=== PATIENT | female | born 1950 | race Caucasian/White ===

== ENCOUNTER 2022-08-12 13:18 | Emergency (ER) | payer MEDICARE, MEDICAID, SELFPAY ==
--- NOTE | ~2022-08-12 | XR_ITS ---
EXAMINATION: Right shoulder, right knee and right tibia and fibula. CLINICAL INDICATION: Fell out of Wheel Chair. COMPARISON: Right knee 08/13/2018 TECHNIQUE: Right shoulder 4 views. Right knee 4 views. Right tibia and fibula. 4 views. FINDINGS: Right shoulder: Mild degenerative arthritic changes right glenohumeral joint and AC joint. No visible acute fracture, dislocation or soft tissue abnormality. Right knee: There is mild reduction in tricompartment joint space. No bony erosive changes seen. No suprapatellar joint effusion or loose bodies. Right tibia and fibula: There is no visible acute fracture or bony abnormality. There is mild soft tissue swelling along the ankle joint. The ankle mortise is unremarkable. XR/XR tibia fibula RT 2V IMPRESSION: Mild degenerative changes right shoulder and right knee. Unremarkable right tibia and fibula except for mild bimalleolar soft tissue swelling.
--- NOTE | ~2022-08-12 | XR_ITS ---
EXAMINATION: Right shoulder, right knee and right tibia and fibula. CLINICAL INDICATION: Fell out of Wheel Chair. COMPARISON: Right knee 08/13/2018 TECHNIQUE: Right shoulder 4 views. Right knee 4 views. Right tibia and fibula. 4 views. FINDINGS: Right shoulder: Mild degenerative arthritic changes right glenohumeral joint and AC joint. No visible acute fracture, dislocation or soft tissue abnormality. Right knee: There is mild reduction in tricompartment joint space. No bony erosive changes seen. No suprapatellar joint effusion or loose bodies. Right tibia and fibula: There is no visible acute fracture or bony abnormality. There is mild soft tissue swelling along the ankle joint. The ankle mortise is unremarkable. XR/XR knee RT 4V IMPRESSION: Mild degenerative changes right shoulder and right knee. Unremarkable right tibia and fibula except for mild bimalleolar soft tissue swelling.
--- NOTE | ~2022-08-12 | XR_ITS ---
EXAMINATION: Right shoulder, right knee and right tibia and fibula. CLINICAL INDICATION: Fell out of Wheel Chair. COMPARISON: Right knee 08/13/2018 TECHNIQUE: Right shoulder 4 views. Right knee 4 views. Right tibia and fibula. 4 views. FINDINGS: Right shoulder: Mild degenerative arthritic changes right glenohumeral joint and AC joint. No visible acute fracture, dislocation or soft tissue abnormality. Right knee: There is mild reduction in tricompartment joint space. No bony erosive changes seen. No suprapatellar joint effusion or loose bodies. Right tibia and fibula: There is no visible acute fracture or bony abnormality. There is mild soft tissue swelling along the ankle joint. The ankle mortise is unremarkable. XR/XR shoulder RT min 2V IMPRESSION: Mild degenerative changes right shoulder and right knee. Unremarkable right tibia and fibula except for mild bimalleolar soft tissue swelling.
--- NOTE | 2022-08-12 13:20 | ED_ITS ---
HPI - Fall General Chief Complaint: Fall <DEMIAN Arora Last Filed: 08/12/22 13:28> Stated Complaint: R side pain/ fall <DEMIAN Arora - Last Filed: 08/12/22 13:28> Time Seen by Provider: 08/12/22 13:46 <DEMIAN Arora - Last Filed: 08/12/22 13:28> Source: patient and other (caregiver) <DEMIAN Llamas Last Filed: 08/12/22 15:17> Mode of arrival: wheelchair <DEMIAN Llamas Last Filed: 08/12/22 15:17> Limitations: no limitations <DEMIAN Llamas Last Filed: 08/12/22 15:17> History of Present Illness HPI Narrative: Patient is a 71 year old assigned female at with a history of poor ambulation with wheelchair use presenting to the emergency department today with right arm and right leg pain. Patient states that she bent over to put her sock on and fell out of her chair 3 days ago. Patient denies hitting her head with t he incident. Patient denies any loss of consciousness with the incident. Patient denies any dizziness, lightheadedness, abdominal pain, nausea, vomiting, fever, chills, blurry vision, double vision, loss of vision, chest pain, difficulty breathing, shortness of breath, back pain, night sweats, pain with urination, increased urinary frequency, increased urinary urgency, blood in her urine or stool, syncope or a near syncopal episode, bowel incontinence, bladder incontinence, bowel retention, bladder retention, or any other complaints at this time. <DEMIAN Llamas Last Filed: 08/12/22 15:17> Onset (ago): day(s) (3) <DEMIAN Llamas - Last Filed: 08/12/22 15:17> Fall from: wheelchair <DEMIAN Llamas Last Filed: 08/12/22 15:17> Fall witnessed: yes, by living facility staff (caregiver) <DEMIAN Llamas Last Filed: 08/12/22 15:17> Place fall occurred: home <DEMIAN Llamas Last Filed: 08/12/22 15:17> Loss of consciousness: none <DEMIAN Llamas Last Filed: 08/12/22 15:17> Prolonged down time: no <DEMIAN Llamas - Last Filed: 08/12/22 15:17> Symptoms prior to fall: none <DEMIAN Llamas - Last Filed: 08/12/22 15:17> Context: tripped/slipped <DEMIAN Llamas - Last Filed: 08/12/22 15:17> Related Data Allergies/Adverse Reactions: Allergies Allergy/AdvReac Type Severity Reaction Status Date / Time levonorgestrel-ethinyl Allergy Mild RUNNY NOSE Unverified 12/25/19 14:48 estradiol [From Seasonale] olanzapine [From ZYPREXA] Allergy Mild UNKNOWN Unverified 12/25/19 14:48 penicillin V Allergy Unknown Verified 07/19/15 00:00 Penicillins Allergy Unknown UNKNOWN Unverified 12/25/19 14:48 From Novocain Allergy Unknown UNKNOWN Uncoded 12/25/19 14:48 <DEMIAN Arora - Last Filed: 08/12/22 13:28> Review of Systems Constitutional: Constitutional: Reports no additional constitutional complaints, Denies chills, Denies fever(s) and Denies night sweats <DEMIAN Llamas - Last Filed: 08/12/22 15:17> Eyes: Eyes: Reports no additional eye complaints, Denies blurry vision, Denies change in vision, Denies diplopia, Denies eye discharge, Denies loss of vision and Denies eye pain <DEMIAN Llamas - Last Filed: 08/12/22 15:17> ENT: Denies dizziness <DEMIAN Llamas - Last Filed: 08/12/22 15:17> Cardiovascular: Cardiovascular: Reports no additional cardiovascular complaints, Denies chest pain, Denies lightheadedness, Denies Loss of Consciousness and Denies dyspnea <DEMIAN Llamas - Last Filed: 08/12/22 15:17> Respiratory: Respiratory: Reports no additional respiratory complaints and Denies dyspnea <DEMIAN Llamas - Last Filed: 08/12/22 15:17> Gastrointestinal: Gastrointestinal: Reports no additional gastrointestinal complaints, Denies abdominal pain, Denies melena, Denies hematochezia, Denies change in bowel habits and Denies change in stool character <DEMIAN Llamas - Last Filed: 08/12/22 15:17> Genitourinary: Genitourinary: Denies hematuria, Denies urinary frequency, Denies dysuria, Denies urinary incontinence, Denies urinary hesitancy and Denies urinary urgency <DEMIAN Llamas - Last Filed: 08/12/22 15:17> Musculoskeletal: Musculoskeletal: Reports no additional musculoskeletal complaints, Denies numbness and Denies tingling <DEMIAN Llamas - Last Filed: 08/12/22 15:17> Comments: right arm pain and right leg pain <DEMIAN Llamas - Last Filed: 08/12/22 15:17> Neurologic: Denies dizziness, Denies loss of vision, Denies numbness and Denies tingling <DEMIAN Llamas - Last Filed: 08/12/22 15:17> Psychiatric: Psychiatric: Reports no additional psychiatric complaints <DEMIAN Llamas - Last Filed: 08/12/22 15:17> Endocrine: Endocrine: Reports no additional endocrine complaints <DEMIAN Llamas - Last Filed: 08/12/22 15:17> Hematologic/Lymphatic: Hematologic/Lymphatic: Reports no additional hematologic/lymphatic complaints <DEMIAN Llamas - Last Filed: 08/12/22 15:17> Allergic/Immunologic: Allergic/Immunologic: Reports no additional allergic/immunologic complaints <DEMIAN Llamas - Last Filed: 08/12/22 15:17> PMFSH Past Medical History Attestation statement: The following information was validated with the patient. (all information validated with the patient's caregiver) <DEMIAN Llamas - Last Filed: 08/12/22 15:17> Source: old records reviewed, nursing notes reviewed and other (patient's caregiver) <DEMIAN Llamas - Last Filed: 08/12/22 15:17> Social History Social History: Social History Advance Directives: Yes Advance Directives on File: No <DEMIAN Arora - Last Filed: 08/12/22 13:28> Physical Exam Vital Signs: Vital Signs: Last Vital Signs Temp 97 F 08/12/22 13:24 Pulse 57 08/12/22 13:24 Resp 16 08/12/22 13:24 BP 138/70 08/12/22 13:24 Pulse Ox 97 08/12/22 13:24 O2 Del Method Room Air 08/12/22 13:24 BMI result Body Mass Index 25.7 <DEMIAN Arora - Last Filed: 08/12/22 13:28> Vital Signs: Last Vital Signs Temp 97 F 08/12/22 13:24 Pulse 57 08/12/22 13:24 Resp 16 08/12/22 13:24 BP 138/70 08/12/22 13:24 Pulse Ox 97 08/12/22 13:24 O2 Del Method Room Air 08/12/22 13:24 BMI result Body Mass Index 25.7 <DEMIAN Llamas - Last Filed: 08/12/22 15:17> Const: General: cooperative, no acute distress, alert and awake <DEMIAN Llamas - Last Filed: 08/12/22 15:17> Nutritional Appearance: well nourished <DEMIAN Llamas - Last Filed: 08/12/22 15:17> Orientation/consciousness: patient oriented x3 <DEMIAN Llamas - Last Filed: 08/12/22 15:17> Limitations: no limitations <DEMIAN Llamas - Last Filed: 08/12/22 15:17> HEENT: Head: Yes normal to inspection and Yes atraumatic <DEMIAN Llamas - Last Filed: 08/12/22 15:17> Ears: hearing grossly normal bilaterally and external ears normal <DEMIAN Llamas - Last Filed: 08/12/22 15:17> General nose exam: Normal external nose present, no nasal discharge noted and no epistaxis <DEMIAN Llamas - Last Filed: 08/12/22 15:17> Face and sinus: Yes normal facial exam, No abrasion and No laceration <DEMIAN Llamas - Last Filed: 08/12/22 15:17> Mouth: Normal oral and palatal mucosa present, no drooling and no muffled voice <DEMIAN Llamas - Last Filed: 08/12/22 15:17> Eyes: General: appearance normal, both eyes and all related structures <Nataliia Jackson PA - Last Filed: 08/12/22 15:17> Periorbital: periorbital findings normal <Nataliia Jackson PA - Last Filed: 08/12/22 15:17> Eyelids: Yes eyelids normal <Nataliia Jackson PA - Last Filed: 08/12/22 15:17> Conjunctivae: conjunctivae normal <Nataliia Jackson PA - Last Filed: 08/12/22 15:17> Pupils: Equal, round and reactive pupils present <Nataliia Jackson PA - Last Filed: 08/12/22 15:17> EOM: EOMs intact bilaterally <Nataliia Jackson PA - Last Filed: 08/12/22 15:17> Neck: Neck: Yes normal visual inspection, Yes full ROM and Yes no lymph adenopathy <Nataliia Jackson PA - Last Filed: 08/12/22 15:17> Chest: Chest palpation & inspection: normal inspection of the chest <Natailia Jackson PA - Last Filed: 08/12/22 15:17> Resp: Effort & Inspection: normal respiratory effort and able to speak in complete sentences <Nataliia Jackson PA - Last Filed: 08/12/22 15:17> GI: Inspection: Yes normal to inspection <Nataliia Jackson PA - Last Filed: 08/12/22 15:17> Neuro: General: patient oriented x3 and moves all extremities <Nataliia Jackson PA - Last Filed: 08/12/22 15:17> Cranial nerves: Yes Equal, round and reactive pupils present <Nataliia Jackson PA - Last Filed: 08/12/22 15:17> Cognition (Neuro): normal cognition <Nataliia Jackson PA - Last Filed: 08/12/22 15:17> Motor exam (neuro): 5/5 motor strength present throughout <Nataliia Jackson PA - Last Filed: 08/12/22 15:17> Sensory Exam: Normal double simultaneous stimulation for sensation <Nataliia Jackson PA - Last Filed: 08/12/22 15:17> Coordination: [id number] test normal <Nataliia Kruseluzmaria PA - Last Filed: 08/12/22 15:17> Extrem: General: Yes normal to inspection, Yes full ROM and Yes capillary refill normal <DEMIAN Llamas - Last Filed: 08/12/22 15:17> Psych: Appearance: grossly normal <DEMIAN Llamas - Last Filed: 08/12/22 15:17> Mental Status: mental status grossly normal <DEMIAN Llamas - Last Filed: 08/12/22 15:17> Affect: normal affect <DEMIAN Llamas - Last Filed: 08/12/22 15:17> Attitude: cooperative <DEMIAN Llamas - Last Filed: 08/12/22 15:17> Thought process: Normal thought process present <DEMIAN Llamas - Last Filed: 08/12/22 15:17> Thought content: Normal thought content present <DEMIAN Llamas - Last Filed: 08/12/22 15:17> Insight: Good insight present (Psych) <DEMIAN Llamas - Last Filed: 08/12/22 15:17> Course Course Course Narrative: RME: 71-year-old female with past medical history epilepsy, GERD, developmental delay, dysphagia, wheelchair bound, presenting to the ED complai eugenia of right side pain s/p fall out of wheelchair on . Denies head trauma or LOC. denies taking AC R mid tib & shoulder with mild ttp XRs ordered Full HPI, ROS and PE to be performed by primary ED provider. <DEMIAN Arora - Last Filed: 08/12/22 13:28> Medical Decision Making Medical Decision Making MDM Narrative: Patient is a 71 year old assigned female at with a history of poor ambulation requiring wheelchair use presenting to the emergency department today with right leg and right arm pain. Patient's physical exam was unremarkable. Patient's right tib/fib, shoulder, and knee x-rays showed no acute process. I explained my physical exam findings as well as all test results to the patient and the patient's caregiver. I answered all questions asked by the patient and the patient's caregiver. Patient received IM Toradol which she stated helped her pain significantly. I stressed the importance of the patient taking her medication as prescribed. I stressed the importance of the patient following up with her primary care provider. I stressed the importance of the patient returning to the emergency department immediately if her symptoms were to worsen or if she were to develop any dizziness, shortness of breath, difficulty master thing, chest pain, blurry vision, loss of vision, nausea, vomiting, abdominal pain, fever, chills, back pain, or any other complaints. Patient and the patient's caregiver verbalized agreement and understanding with this treatment plan and discharge. <DEMIAN Llamas Filed: 08/12/22 15:17> Differential Diagnosis Differential Diagnoses: The differential diagnosis associated with the presentation includes <DEMIAN Llamas Filed: 08/12/22 15:17> fall, right sided pain, right arm pain, right leg pain <DEMIAN Llamas Last Filed: 08/12/22 15:17> Independent Interpretation I performed an independent interpretation of an: Plain X-Ray <DEMIAN Llamas Filed: 08/12/22 15:17> Interpretation: My interpretation is in agreement with the radiologist's impression of these imaging studies. EXAMINATION: Right shoulder, right knee and right tibia and fibula. CLINICAL INDICATION: Fell out of Wheel Chair. COMPARISON: Right knee 08/13/2018 TECHNIQUE: Right shoulder 4 views. Right knee 4 views. Right tibia and fibula. 4 views. FINDINGS: Right shoulder: Mild degenerative arthritic changes right glenohumeral joint and AC joint. No visible acute fracture, dislocation or soft tissue abnormality. Right knee: There is mild reduction in tricompartment joint space. No bony erosive changes seen. No suprapatellar joint effusion or loose bodies. Right tibia and fibula: There is no visible acute fracture or bony abnormality. There is mild soft tissue swelling along the ankle joint. The ankle mortise is unremarkable. XR/XR tibia fibula RT 2V IMPRESSION: Mild degenerative changes right shoulder and right knee. ? Unremarkable right tibia and fibula except for mild bimalleolar soft tissue swelling. Dictated By: Francisco Rosenebrg MD Signed By: Electronically signed by Francisco Rosenberg MD 08/12/22 1444 <DEMIAN Llamas - Last Filed: 08/12/22 15:17> Independent Historian Clinical information obtained from an independent historian. History obtained from or confirmed by: Other (patient's caregiver) <DEMIAN Llamas - Last Filed: 08/12/22 15:17> Discharge Plan Discharge Clinical Impression: Fall <DEMIAN Arora Last Filed: 08/12/22 13:28> Patient Disposition: Home, Self-Care <DEMIAN Arora - Last Filed: 08/12/22 13:28> Instructions: Fall Prevention for Older Adults (ED), Fall Prevention (ED) <DEMIAN Arora - Last Filed: 08/12/22 13:28> Additional Instructions: Follow up with your primary care provider. Return to the emergency department immediately if your symptoms worsen or if you develop any dizziness, shortness of breath, difficulty breathing, chest pain, blurry vision, loss of vision, nausea, vomiting, abdominal pain, fever, chills, back pain, or any other complaints. <DEMIAN Arora - Last Filed: 08/12/22 13:28> Referrals: [facility] [Provider Group] (Call to establish and follow up with a primary care provider. If you already have a primary care provider, please follow up with them.) [facility] [Provider Group] (Call to establish and follow up with a primary care provider. If you already have a primary care provider, please follow up with them.) [facility] [Provider Group] (Call to establish and follow up with a primary care provider. If you already have a primary care provider, please follow up with them.) <DEMIAN Arora Last Filed: 08/12/22 13:28> Print Language: [place] African <DEMIAN Arora Last Filed: 08/12/22 13:28>
[2022-08-12 13:24] VITALS: BP 138/70; PULSE 57; RESP 16; TEMP 36.1; O2SAT 97; BMI 25.7
[2022-08-12] MEDS: Ketorolac Tromethamine 15 MG/ML VIAL IM (15:12)
== END 2022-08-12 15:47 | disposition home or self-care (01) ==
PROVIDERS: Emergency Provider Emergency Medicine
DX: M79.601 Pain in right arm (principal); M79.604 Pain in right leg; Z91.81 History of falling
CPT/HCPCS: 73030; 73564; 73590; 96372; 99283; 99284; J1885

== ENCOUNTER 2022-11-18 22:23 | Emergency (ER) | payer MEDICARE, MEDICAID, SELFPAY ==
[2022-11-18 22:33] VITALS: BP 150/90; BP 187/87; PULSE 82; PULSE 87; RESP 18; TEMP 36.1; O2SAT 95; O2SAT 97; BMI 27.5
--- NOTE | 2022-11-18 23:52 | ECG_ITS ---
Test Reason : NAUSEA Blood Pressure : / mmHG Vent. Rate : 079 BPM Atrial Rate : 079 BPM P-R Int : 122 ms QRS Dur : 072 ms QT Int : 386 ms P-R-T Axes : 012 -30 025 degrees QTc Int : 442 ms Normal sinus rhythm Left axis deviation Abnormal ECG When compared with ECG of 09-OCT-2011 07:45, No significant change was found Referred By: Nataliia Jackson Electronically Signed By:Isidro Phillip
[2022-11-19 02:32] VITALS: BP 158/77; PULSE 78; RESP 18; TEMP 37.2; O2SAT 94
[2022-11-19 02:33] LABS: MANUAL DIFF FLAG NO
[2022-11-19 02:34] LABS: Basophils Percent Auto 0.3 % (0-2); Eosinophils Absolute Auto 0.1 X10*3/uL (0.0-0.4); Eosinophils Percent Auto 0.8 % (0-4); Hematocrit 40.4 % (37.0-47.0); Hemoglobin 13.2 g/dl (12.0-16.0); Imm Gran Abs Auto 0.01 X10*3/uL (0.00-0.03); Imm Gran Pct Auto 0.2 % (0.0-0.4); Lymphocytes Absolute Auto 1.6 X10*3/uL (1.2-4.9); Lymphocytes Percent Auto 26.1 % (20-40); Mean Corpuscular HGB Conc 32.7 g/dl (31.0-35.0); Mean Corpuscular Hemoglobin 30.5 pg (27.0-33.0); Mean Corpuscular Volume 93.3 fL (80.0-98.0); Monocytes Absolute Auto 0.6 X10*3/uL (0.1-1.2); Monocytes Percent Auto 10.5 % (2-11); Neutrophils Absolute Auto 3.8 x10*3/uL (2.0-8.3); Neutrophils Percent Auto 62.1 % (45-73); Platelet Count 154 X10*3/uL (160-400); Red Blood Count 4.33 X10*6/uL (4.20-5.50); Red Cell Distribution Width 13.1 % (11.0-16.0); White Blood Count 6.1 X10*3/uL (4.8-10.8)
--- NOTE | 2022-11-19 02:40 | ED.NAVMDI ---
HPI - Nausea/Vomiting/Diarrhea General Chief complaint: Nausea/Vomiting/Diarrhea Stated complaint: NAUSEA VOMITING Time Seen by Provider: 11/19/22 00:03 Source: patient and other (Facility staff) Mode of arrival: EMS Limitations: no limitations History of Present Illness HPI Narrative: Patient comes to the emergency room complaining of generalized weakness and vomiting for the last 2 days. According to the staff, patient is unable to keep anything down, vomits her medication. Patient denies any abdominal pain, no fever no flank pain no UTI symptoms, no abdominal pain Related Data Previous Rx's Medication Instructions Recorded nitrofurantoin 100 mg PO Q12H 7 days #14 caps 11/19/22 monohydrate/macrocrystals 100 mg capsule (Macrobid) ondansetron HCl 4 mg tablet 4 mg PO Q6H PRN nausea and 11/19/22 vomiting #7 tabs Allergies Allergy/AdvReac Type Severity Reaction Status Date / Time levonorgestrel-ethinyl Allergy Mild RUNNY NOSE Unverified 12/25/19 14:48 estradiol [From Seasonale] olanzapine [From ZYPREXA] Allergy Mild UNKNOWN Unverified 12/25/19 14:48 penicillin V Allergy Unknown Verified 07/19/15 00:00 Penicillins Allergy Unknown UNKNOWN Unverified 12/25/19 14:48 From Novocain Allergy Unknown UNKNOWN Uncoded 12/25/19 14:48 Review of Systems Review of Systems: Constitutional : No Weight loss, No Fever, No Chills, No Night Sweats, No Fatigue, No Malaise ENT/Mouth : No Hearing loss, No Ear Pain, No Nasal Congestion, No Sinus Pain, No Hoarseness, No sore throat, No Rhinorrhea, No Swallowing Difficulty Eyes: No Eye Pain, No Swelling, No Redness, No Foreign Body, No Discharge, No Vision Changes Cardiovascular : No Chest Pain, No SOB, No Dyspnea on Exertion, No Orthopnea, No Edema, No Palpitations Respiratory : No Cough, No Sputum, No Wheezing, No Smoke Exposure, No Dyspnea Gastrointestinal : Complaining of nausea vomiting No Diarrhea, No Constipation, No abdominal Pain, No Hematochezia, No Melena Genitourinary : no irregular bleeding, No Dysuria, No Urinary Frequency, No Hematuria, No Urinary Incontinence, No Urgency, No Flank Pain, No Urinary Flow Changes, No Hesitancy Musculoskeletal : No joint pain, No Myalgias, No Joint Swelling Skin : No Skin Lesions, No rash Neuro : No Weakness, No Numbness, No Paresthesias, No Loss of Consciousness, No Dizziness, No Headache Psych : No Anxiety/Panic, No Depression, No SI/HI/AH/VH, No Social Issues, Heme/Lymph: No Bruising, No Bleeding,No Lymphadenopathy Endocrine : No Polyuria, No Polydipsia, No Temperature Intolerance [facility] Past Medical History Medical History (Updated 11/19/22 @ 06:12 by Anay Gutierres MD) Cognitive developmental delay Social History Social History Smoked in Last 30 Days: No Advance Directives: No Advance Directives Information Provided: No Physical Exam Vital Signs: Vital Signs: Last Vital Signs Temp 98.4 F 11/19/22 04:50 Pulse 81 11/19/22 04:50 Resp 18 11/19/22 04:50 BP 149/74 H 11/19/22 04:50 Pulse Ox 94 11/19/22 04:50 O2 Del Method Room Air 11/19/22 04:50 BMI result Body Mass Index 27.5 Const: Other: Appearance: Alert. Oriented X3. No acute distress. Eyes: Pupils equal, round and reactive to light. ENT: Pharynx normal. Neck: Normal inspection. Neck supple. No lymph nodes noted. No crepitus CVS: Normal heart rate and rhythm. Pulses normal. Normal S1 and S2 Respiratory: No respiratory distress. Breath sounds normal. No Wheezing. No rales Abdomen: Soft and nontender. No rigidity. No distention. Skin: Skin warm and dry. Normal skin color. Normal skin turgor. Extremities: No lower extremity edema. No Lacerations. No Rash Neuro: Oriented X 3. No motor deficit. No sensory deficit. Moving all extremities. No slurred speech. CN 2 through 12 grossly intact Psych: calm, cooperative, normal affect Medications Administered Discontinued Medications Generic Name Dose Route Start Last Admin Trade Name Freq PRN Reason Stop Dose Admin Sodium Chloride 1,000 mls @ 999 mls/hr 11/18/22 23:45 11/19/22 05:46 Ns IV 11/19/22 00:45 Not Given .Q1H1M RAFAELA Sodium Chloride 1,000 mls @ 999 mls/hr 11/19/22 02:41 11/19/22 05:46 Ns IVCONT 11/19/22 03:41 Not Given .Q1H1M ONE Nitrofurantoin Macrocrystals 100 mg 11/19/22 05:22 11/19/22 06:05 Nitrofurantoin Monohyd/M-Cryst 100 Mg Capsule PO 11/19/22 05:23 100 mg ONCE ONE Administration Ondansetron HCl 4 mg 11/18/22 23:52 11/19/22 05:46 Ondansetron Hcl 4 Mg/2 Ml Vial IVPUSH 11/18/22 23:53 Not Given ONCE ONE Ondansetron HCl 4 mg 11/19/22 02:41 11/19/22 05:46 Ondansetron Hcl 4 Mg/2 Ml Vial IVPUSH 11/19/22 02:42 Not Given ONCE ONE Medical Decision Making Medical Decision Making MDM Narrative: Interpretation of labs: White blood cell count within normal limits, patient's troponin is 24, elevated. Patient has no chest pain -. Normal sinus rhythm, heart rate 79, no ST segment depression or elevation, no T-wave inversion, QTC 442 -urinalysis has trace leukocytes, given the patient's symptoms would go ahead and treat with Macrobid Trop #2 seem as troponin 1, patient is asymptomatic. This is likely patient's baseline Differential Diagnosis Differential Diagnoses: The differential diagnosis associated with the presentation includes (UTI, gastroenteritis, viral illness) Lab Data [facility] Lab Attestation statement: I reviewed the patient's lab results. 11/19/22 02:29 11/19/22 02:29 Labs: Lab Results 11/19/22 11/19/22 11/19/22 Range/Units 02:29 02:29 02:29 WBC 6.1 (4.8-10.8) X10*3/uL RBC 4.33 (4.20-5.50) X10*6/uL Hgb 13.2 (12.0-16.0) g/dl Hct 40.4 (37.0-47.0) % MCV 93.3 (80.0-98.0) fL MCH 30.5 (27.0-33.0) pg MCHC 32.7 (31.0-35.0) g/dl RDW 13.1 (11.0-16.0) % Plt Count 154 L (160-400) X10*3/uL MPV 10.0 (9.4-12.3) fL Immature Gran % (Auto) 0.2 (0.0-0.4) % Neut % (Auto) 62.1 (45-73) % Lymph % (Auto) 26.1 (20-40) % [place] % (Auto) 10.5 (2-11) % Eos % (Auto) 0.8 (0-4) % Baso % (Auto) 0.3 (0-2) % Lymph # (Auto) 1.6 (1.2-4.9) X10*3/uL [place] # (Auto) 0.6 (0.1-1.2) X10*3/uL Eos # (Auto) 0.1 (0.0-0.4) X10*3/uL Baso # (Auto) 0.0 (0.0-0.2) X10*3/uL Abs Immat Gran (auto) 0.01 (0.00-0.03) X10*3/uL Absolute Neuts (auto) 3.8 (2.0-8.3) x10*3/uL Absolute Nucleated RBC 0.000 (0.0-0.012) X10*3/uL Nucleated RBC % (auto) 0.0 (0.0-0.2) /100WBC Sodium 146 H (135-145) mmol/L Potassium 3.8 (3.3-5.1) mmol/L Chloride 110 H (96-108) mmol/L Carbon Dioxide 25 (22-29) mmol/L Anion Gap 15 (12-20) BUN 20 H (9-16) mg/dL Creatinine 0.74 (0.5-1.4) mg/dL Estim Creat Clear Calc 69.5 Estimated GFR > 60 Random Glucose 97 (60-115) mg/dL Calcium 9.1 (8.4-10.2) mg/dL Magnesium 2.1 (1.6-2.6) mg/dL Total Bilirubin 0.5 (0.0-1.0) mg/dL AST 30 (5-31) U/L ALT 39 H (0-31) U/L Alkaline Phosphatase 85 (39-117) U/L Total Creatine Kinase 79 (26-140) U/L Troponin I High Sens 24.5 H (<3.5-17.0) ng/L Total Protein 7.0 (6.5-8.0) g/dL Albumin 4.0 (3.5-5.0) g/dL Lipase 35 (8-78) U/L Urine Color Urine Appearance Urine pH (5.0-9.0) Ur Specific [place] (1.005-1.025) Urine Protein (Neg-Trace) mg/dL Urine Glucose (UA) (Negative) mg/dL Urine Ketones (Negative) mg/dL Urine Blood (Negative) Urine Nitrite (Negative) Ur Leukocyte Esterase (Negative) Urine RBC (0-2) /HPF Urine WBC (0-5) /HPF Ur Squamous Epith Cells (0-2) /HPF Urine Bacteria (None Seen) Hyaline Casts (0-2) /LPF COVID-19 ([facility]) (Negative) COVID-19 Clin Com 11/19/22 11/19/22 11/19/22 Range/Units 02:29 05:01 05:29 WBC (4.8-10.8) X10*3/uL RBC (4.20-5.50) X10*6/uL Hgb (12.0-16.0) g/dl Hct (37.0-47.0) % MCV (80.0-98.0) fL MCH (27.0-33.0) pg MCHC (31.0-35.0) g/dl RDW (11.0-16.0) % Plt Count (160-400) X10*3/uL MPV (9.4-12.3) fL Immature Gran % (Auto) (0.0-0.4) % Neut % (Auto) (45-73) % Lymph % (Auto) (20-40) % [place] % (Auto) (2-11) % Eos % (Auto) (0-4) % Baso % (Auto) (0-2) % Lymph # (Auto) (1.2-4.9) X10*3/uL [place] # (Auto) (0.1-1.2) X10*3/uL Eos # (Auto) (0.0-0.4) X10*3/uL Baso # (Auto) (0.0-0.2) X10*3/uL Abs Immat Gran (auto) (0.00-0.03) X10*3/uL Absolute Neuts (auto) (2.0-8.3) x10*3/uL Absolute Nucleated RBC (0.0-0.012) X10*3/uL Nucleated RBC % (auto) (0.0-0.2) /100WBC Sodium (135-145) mmol/L Potassium (3.3-5.1) mmol/L Chloride (96-108) mmol/L Carbon Dioxide (22-29) mmol/L Anion Gap (12-20) BUN (9-16) mg/dL Creatinine (0.5-1.4) mg/dL Estim Creat Clear Calc Estimated GFR Random Glucose (60-115) mg/dL Calcium (8.4-10.2) mg/dL Magnesium (1.6-2.6) mg/dL Total Bilirubin (0.0-1.0) mg/dL AST (5-31) U/L ALT (0-31) U/L Alkaline Phosphatase (39-117) U/L Total Creatine Kinase (26-140) U/L Troponin I High Sens 23.9 H (<3.5-17.0) ng/L Total Protein (6.5-8.0) g/dL Albumin (3.5-5.0) g/dL Lipase (8-78) U/L Urine Color Dark Yellow Urine Appearance Clear Urine pH 6.0 (5.0-9.0) Ur Specific [place] 1.025 (1.005-1.025) Urine Protein 300 (3+) H (Neg-Trace) mg/dL Urine Glucose (UA) Negative (Negative) mg/dL Urine Ketones 80 (Negative) mg/dL Urine Blood Negative (Negative) Urine Nitrite Negative (Negative) Ur Leukocyte Esterase Trace H (Negative) Urine RBC 3-5 H (0-2) /HPF Urine WBC 0-5 (0-5) /HPF Ur Squamous Epith Cells 3-5 (0-2) /HPF Urine Bacteria None Seen (None Seen) Hyaline Casts 0-2 (0-2) /LPF COVID-19 ([facility]) Negative (Negative) COVID-19 Clin Com See Note Discharge Plan Discharge Clinical Impression: Nausea & vomiting, Acute UTI Patient Disposition: Home, Self-Care Instructions: Acute Nausea and Vomiting (ED), Urinary Tract Infection in Older Adults (ED) Additional Instructions: Please follow-up with your primary care physician tomorrow. If you have any worsening or new symptoms, please return to the emergency room or call 911 Prescriptions: New nitrofurantoin monohyd/m-cryst [Macrobid] 100 mg capsule 100 mg PO Q12H 7 Days Qty: 14 0RF Rx Instructions: must administer with a meal/food ondansetron HCl 4 mg tablet 4 mg PO Q6H PRN (Reason: nausea and vomiting) Qty: 7 0RF
[2022-11-19 02:51] LABS: Alanine Aminotransferase 39 U/L (0-31); Alkaline Phosphatase 85 U/L (39-117); Anion Gap 15 (12-20); Aspartate Amino Transferase 30 U/L (5-31); Bilirubin Total 0.5 mg/dL (0.0-1.0); Blood Urea Nitrogen 20 mg/dL (9-16); Calcium 9.1 mg/dL (8.4-10.2); Carbon Dioxide 25 mmol/L (22-29); Chloride 110 mmol/L (96-108); Creatinine Clr Calc Pharmacy 69.5; Estimated Glomerular Filt Rate > 60; Glucose Random 97 mg/dL (60-115); Lipase 35 U/L (8-78); Magnesium 2.1 mg/dL (1.6-2.6); Potassium 3.8 mmol/L (3.3-5.1); Sodium 146 mmol/L (135-145)
[2022-11-19 02:54] LABS: Troponin-I High Sensitivity 24.5 ng/L (<3.5-17.0)
[2022-11-19 03:06] LABS: COVID-19 Test Negative (Negative); IDNOW Serial# BCCEAD1C
--- NOTE | 2022-11-19 04:43 | PC.NURSE ---
This RN assumed care of patient upon arrival. Patient sleeping with caregiver at bedside throughout stay. This RN attempted IV multiple times, patient states you're hurting me! I just want to sleep! . RN informed MD and PA that patient is a hard stick, therefore medications and fluids were not given, MD aware.
[2022-11-19 04:50] VITALS: BP 149/74; PULSE 81; RESP 18; TEMP 36.9; O2SAT 94
[2022-11-19 05:07] LABS: Appearance Urine Clear; Color Urine Dark Yellow; Glucose Urine UA Negative (Negative); Leukocyte Esterase Urine Trace (Negative); Nitrite Urine Negative (Negative); Specific Gravity - Urine 1.025 (1.005-1.025); UMIC TRIGGER UACC YES; Urine Blood Negative (Negative); Urine Ketones 80 mg/dL (Negative); Urine Protein 300 (3+) mg/dL (Neg-Trace)
[2022-11-19 05:20] LABS: Bacteria Urine None Seen (None Seen); Hyaline Casts Urine 0-2 /LPF (0-2); WBC Urine 0-5 /HPF (0-5)
[2022-11-19 05:53] LABS: Troponin-I High Sensitivity 23.9 ng/L (<3.5-17.0)
[2022-11-19] MEDS: Nitrofurantoin Monohyd/M-Cryst 100 MG CAPSULE PO (06:05)
--- NOTE | 2022-11-19 06:51 | PC.NURSE ---
Ambulance arrived to take patient home at this time. Report given
== END 2022-11-19 06:51 | disposition home or self-care (01) ==
PROVIDERS: Physician Assistant Medical; Emergency Provider Emergency Medicine
DX: N39.0 Urinary tract infection, site not specified (principal); R11.2 Nausea with vomiting, unspecified; Z20.822 Contact with and (suspected) exposure to COVID-19
CPT/HCPCS: 36415; 80053; 81001; 82550; 83690; 83735; 84484; 85025; 87635; 93005; 99284

== ENCOUNTER → 2022-11-18 23:52 | Outpatient (BNV) | payer MEDICARE, MEDICAID, SELFPAY | PROVIDERS: Emergency Provider Emergency Medicine; Visit Provider Internal Medicine Cardiovascular Disease | DX: R94.31 Abnormal electrocardiogram [ECG] [EKG] (principal) | CPT/HCPCS: 93010 ==

== ENCOUNTER 2023-02-01 18:05 | Emergency (ER) | payer MEDICARE, MEDICAID, SELFPAY ==
--- NOTE | ~2023-02-01 | XR_ITS ---
EXAMINATION: XR LUMBOSACRAL SPINE CLINICAL INFORMATION: Fall. COMPARISON: None available. TECHNIQUE: Three views of the lumbosacral spine. FINDINGS: There is normal lumbar lordosis. The vertebral heights, alignment and disc heights are normal. No visible acute fracture or dislocation seen. Mild ventral spondylosis lower dorsal spine. No aggressive lytic or sclerotic process seen. There is diffuse osteopenia. XR/XR lumbar spine 2-3V IMPRESSION: Diffuse osteopenia. No visible fracture or dislocation seen.
[2023-02-01 18:22] VITALS: BP 136/56; BP 136/88; PULSE 67; PULSE 72; RESP 18; TEMP 36.7; O2SAT 97; O2SAT 98; BMI 33.3
--- NOTE | 2023-02-01 18:23 | ED.FALL ---
HPI - Fall General Chief Complaint: Fall Stated Complaint: FALL LAST NIGHT Time Seen by Provider: 02/01/23 18:09 Source: patient Mode of arrival: EMS Limitations: no limitations History of Present Illness HPI Narrative: 72 yo female witnessed fall last night at alf states her R leg gave out no headstrike it happened at midnight. She only c/o low back pain but states she is fine. She doesn't want to be here but there is a policy after fall she has to get checked out. No pain in arms, head, neck, legs. She is not on thinners complaint: fall Onset (ago): hour(s) (12am today) Fall from: standing Fall witnessed: yes, by living facility staff Place fall occurred: home Loss of consciousness: none Prolonged down time: no Symptoms prior to fall: none Context: tripped/slipped Location of injury: back Quality: aching (mild) Associated symptoms (after fall): denies Related Data Previous Rx's Medication Instructions Recorded nitrofurantoin 100 mg PO Q12H 7 days #14 caps 11/19/22 monohydrate/macrocrystals 100 mg capsule (Macrobid) ondansetron HCl 4 mg tablet 4 mg PO Q6H PRN nausea and 11/19/22 vomiting #7 tabs Allergies Allergy/AdvReac Type Severity Reaction Status Date / Time levonorgestrel-ethinyl Allergy Mild RUNNY NOSE Verified 02/01/23 18:30 estradiol [From Seasonale] olanzapine [From ZYPREXA] Allergy Mild UNKNOWN Verified 02/01/23 18:30 penicillin V Allergy Unknown Unknown Verified 02/01/23 18:30 Penicillins Allergy Unknown UNKNOWN Verified 02/01/23 18:30 From Novocain Allergy Unknown UNKNOWN Uncoded 12/25/19 14:48 Review of Systems Review of Systems: Constitutional : No Weight loss, No Fever, No Chills, ENT/Mouth : No Hearing loss, No Ear Pain, No Nasal Congestion, No Sinus Pain, No Hoarseness, No sore throat, No Rhinorrhea, No Swallowing Difficulty Cardiovascular : No Chest Pain, No SOB Respiratory : No Cough, No Dyspnea Gastrointestinal : No Nausea, No Vomiting, No Diarrhea, No abdominal Pain, No Hematochezia, No Melena Genitourinary : No Dysuria, No Urinary Frequency, No Hematuria, No Urinary Incontinence, Musculoskeletal : positive back pain Skin : No Skin Lesions, No rash Neuro : No Weakness, No Numbness, No Paresthesias, no loss of bowel or bladder incontinence, no saddle anesthesia All other systems reviewed and are negative [facility] Past Medical History Attestation statement: The following information was validated with the patient. Medical History Cognitive developmental delay Social History Social History (Updated 02/01/23 @ 18:29 by Raiza Murillo DO) Patient Tobacco Use Status: Never used Tobacco Advance Directives: No Advance Directives Information Provided: No Physical Exam Vital Signs: Vital Signs: Last Vital Signs Temp 98.1 F 02/01/23 18:22 Pulse 67 02/01/23 18:22 Resp 18 02/01/23 18:22 BP 136/56 L 02/01/23 18:22 Pulse Ox 97 02/01/23 18:22 O2 Del Method Room Air 02/01/23 18:22 BMI result Body Mass Index 33.3 Appearance: Alert. Oriented X3. No acute distress. Eyes: Pupils equal, round and reactive to light. ENT: Pharynx normal. Neck: Normal inspection. Neck supple. CVS: Normal heart rate and rhythm. Pulses normal. Respiratory: No respiratory distress. Breath sounds normal. Abdomen: Soft and nontender. Back: no midline ttp reports some mild lateral ttp Skin: Skin warm and dry. Normal skin color. Normal skin turgor. Extremities: No lower extremity edema. no pain with ROM testing Neuro: Oriented X 3. No motor deficit. No sensory deficit. Medical Decision Making Medical Decision Making MDM Narrative: 72 yo female from alf not on thinners here with c/o low back pain after fall she denies head or neck injury no trunk/extremity injury at this time lumbar films ordered. She fell at 12am and has been at baseline. Doubt ICH. Witnessed mechanical fall Differential Diagnosis Differential Diagnoses: The differential diagnosis associated with the presentation includes strain, sprain, compression fx Admission/Observation Consideration of admission/observation: Escalation of care including admission/observation considered at baseline stable for DC Independent Interpretation I performed an independent interpretation of an: Plain X-Ray (no fracture) Radiology Impression Discussion of test interpretation with radiology: I have reviewed the radiologist's reading. Independent Historian Clinical information obtained from an independent historian. History obtained from or confirmed by: EMS External Record Review External record reviewed: Office record Discharge Plan Discharge Clinical Impression: Lumbar strain Qualifiers: Encounter type: initial encounter Qualified Code(s): S39.012A - Strain of muscle, fascia and tendon of lower back, initial encounter Patient Disposition: Home, Self-Care Instructions: Acute Low Back Pain (ED) Additional Instructions: xray of lumbar spine was negative, no acute findings, return for worsening pain, loss of control of bowel or bladder, numbness, new pain or any other concerns. IMPRESSION: Diffuse osteopenia. No visible fracture or dislocation seen Prescriptions: No Action nitrofurantoin monohyd/m-cryst [Macrobid] 100 mg capsule 100 mg PO Q12H 7 Days Qty: 14 0RF Rx Instructions: must administer with a meal/food ondansetron HCl 4 mg tablet 4 mg PO Q6H PRN (Reason: nausea and vomiting) Qty: 7 0RF
--- NOTE | 2023-02-01 18:30 | PC.NURSE ---
pt alert and oriented, [facility] from [facility] via ambulance. fell last night while getting up off the toilet. hit buttock, reports lower back pain. no hs/loc. witnessed by staff. denies pain at this time.
== END 2023-02-01 21:22 | disposition home or self-care (01) ==
PROVIDERS: Emergency Provider Emergency Medicine
DX: S39.012A Strain of muscle, fascia and tendon of lower back, initial encounter (principal); W01.0XXA Fall on same level from slipping, tripping and stumbling without subsequent striking against object, initial encounter; Y93.9 Activity, unspecified; Y92.9 Unspecified place or not applicable; Y99.9 Unspecified external cause status
CPT/HCPCS: 72100; 99283; 99284

== ENCOUNTER 2023-10-15 10:26 | Day surgery (SDC) | payer MEDICARE, MEDICAID, SELFPAY ==
[2023-10-10 14:23] VITALS: BMI 41.0
--- NOTE | 2023-10-15 11:56 | P.CONAN_ITS ---
HPI - Anesthesia Eval Consult details Narrative: 72 yo female patient for Right cataract extraction, IOL insertion PMFSH Past Medical History Medical History Small jaw Thought disorder Schizophrenia Mood disorder Depression Osteoporosis Age-related macular degeneration GERD (gastroesophageal reflux disease) Seizures Cognitive developmental delay Family History Family history of problems with anesthesia: No Surgical History Surgical History History of esophagogastroduodenoscopy (EGD) Hx of lithotripsy Hx of cystoscopy History of Problems with Anesthesia: No Social History Social History Household Members Other:: resides in custodial Patient Tobacco Use Status: Never used Tobacco Use of substances other than those prescribed or required for medical reasons: No Advance Directives Information Provided: Yes (as above noted) Advance Directives on File: No Recently lost weight without trying: No Nutrition Risks: No Nutritional Risk Meds Allergies Allergy/AdvReac Type Severity Reaction Status Date / Time levonorgestrel-ethinyl Allergy Mild RUNNY NOSE Verified 02/01/23 18:30 estradiol [From Seasonale] olanzapine [From ZYPREXA] Allergy Mild UNKNOWN Verified 02/01/23 18:30 Penicillins Allergy Unknown UNKNOWN Verified 02/01/23 18:30 procaine [From Novocain] Allergy Unknown Unknown Verified 08/13/23 09:05 Active Medications: Current Medications Cyclopentolate HCl (Cyclopentolate 1 % Ophth Johanna 2 Ml Drpbtl) 1 drop EYE-RIGHT Q5M RAFAELA Stop: 10/15/23 12:11 Ketorolac Tromethamine (Ketorolac Tromethamine 0.5% Op 10 Ml Drops) 1 drop EYE- RIGHT Q5M RAFAELA Stop: 10/15/23 12:11 Phenylephrine HCl (Phenylephrine Hcl 2.5% Oph Johanna 2 Ml Bottle) 1 drop EYE-RIGHT Q5M RAFAELA Stop: 10/15/23 12:11 Povidone Iodine (Povidone Iodine 5 % Ophth Soln 30 Ml Bottle) 1 appl EYE-RIGHT PREOP PRN PRN Reason: Pre-Op Surgical Implant Prophy Tetracaine HCl (Tetracaine Hcl/Pf 0.5% Oph Johanna 4 Ml Drops) 1 drop EYE-RIGHT PREOP ONE Stop: 10/15/23 11:52 Triamcinolone Acetonide (Triamcinolone Acetonide 40 Mg/Ml Vial) 40 mg IM POSTOP ONE Stop: 10/15/23 11:52 Tropicamide (Tropicamide 1 % Ophth Johanna 3 Ml Btl) 1 drop EYE-RIGHT Q5M RAFAELA Stop: 10/15/23 12:11 Home Medications ?Medication ?Instructions ?Recorded ?Confirmed ?Last Taken ?Type acetaminophen 500 mg tablet 500 mg PO Q8H PRN Pain 10/09/23 10/09/23 Unknown History alendronate 70 mg tablet 70 mg PO QWEEK 10/09/23 10/09/23 Unknown History carbamazepine 100 mg 100 mg PO BID 10/09/23 10/09/23 Unknown History tablet,extended release,12 hr (Tegretol XR) carbamazepine 200 mg 200 mg PO BID 10/09/23 10/09/23 Unknown History tablet,extended release,12 hr (Tegretol XR) cetirizine 10 mg tablet (Zyrtec) 10 mg PO DAILY 10/09/23 10/09/23 Unknown History citalopram 10 mg tablet (Celexa) 12.5 mg PO DAILY 10/09/23 10/09/23 Unknown History dextromethorphan-guaifenesin 10 7.5 ml PO Q4-6H PRN Cough 10/09/23 10/09/23 Unknown History mg-200 mg/5 mL oral liquid docusate sodium 100 mg capsule 100 mg PO BEDTIME 10/09/23 10/09/23 Unknown History (Colace) fluticasone propionate 50 1 spray intranasal DAILY 10/09/23 10/09/23 Unknown History mcg/actuation nasal spray,suspension multivitamin 1 tab PO DAILY 10/09/23 10/09/23 Unknown History oxybutynin chloride 5 mg tablet 5 mg PO BID 10/09/23 10/09/23 Unknown History primidone 250 mg tablet (Mysoline) 250 mg PO BID 10/09/23 10/09/23 Unknown History psyllium husk 0.4 gram capsule 0.4 g PO BEDTIME 10/09/23 10/09/23 Unknown History (Reguloid (psyllium husk)) vit C 250 mg-vit E 90 mg-zinc 40 1 tab PO BID 10/09/23 10/09/23 Unknown History mg-copper 1 dd-ictqmg-somatk capsule (PreserVision AREDS-2) ziprasidone HCl 80 mg capsule 80 mg PO BID 10/09/23 10/09/23 Unknown History ([place]) Exam Height,Weight and Vital Signs: Height 5 ft Weight 95.3 kg Vital Signs Temp Pulse Resp BP Pulse Ox O2 Del Method 10/15/23 12:06 97.2 F 58 18 149/62 H 93 Room Air Airway Mallampati Class: III (Short neck) TM Dist: >3cm Neck ROM: Limited (Unable to assess. Patient not cooperative. Sitting scrunched up in chair. Unable to assess degree of mobility ) Loose/Missing/Broken Teeth: Yes (Only 1 tooth present - top) Heart: RRR Lungs: CTAB Assessment and Plan Assessment Anesthesia Assessment: Anesthesia Plan Discussed and Chart Reviewed Final Anesthetic Review Family History of Problems with Anesthesia: No History of Problems with Anesthesia: No NPO: Yes ASA Class: III Final Preanesthetic Review: No Changes in Pt Med Stat, Meds/Allgs Chart Reviewed, Consent Obtained/Reviewed and Anes Risks/Benef Reviewed Patient Risk: Intermediate Procedure Risk: Low Assessment/Block/Sedation in SS: Assess/Block/Sedation-SS Anesthetic Plan Anesthetic Plan: GA (Not sure that patient will be able to be cooperative for surgery and patient states that she cannot lie flat. ) and MAC: Disposition: Standard PACU
[2023-10-15 12:06] VITALS: BP 149/62; PULSE 58; RESP 18; TEMP 36.2; O2SAT 93; BMI 39.1
--- NOTE | 2023-10-15 12:41 | PC.NURSE ---
per dr. mayers, ok to give tetracaine despite allergy to lidocaine. pharmacy update. give same eye drops as ordered.
[2023-10-15] MEDS: Ketorolac Tromethamine 0.5% Op 10 ML DROPS 1 DROP EYE-RIGHT ×3 (12:43→12:51)
[2023-10-15] MEDS: Tetracaine HCl/PF 0.5% Oph Sol 4 ML DROPS 1 DROP EYE-RIGHT (12:43)
[2023-10-15] MEDS: Phenylephrine HCL 2.5% Oph SoL 2 ML BOTTLE 1 DROP EYE-RIGHT ×3 (12:43→12:50)
[2023-10-15] MEDS: Cyclopentolate 1 % Ophth Sol 2 ML DRPBTL 1 DROP EYE-RIGHT ×3 (12:44→12:51)
[2023-10-15] MEDS: Tropicamide 1 % Ophth Sol 3 ML BTL 1 DROP EYE-RIGHT ×3 (12:44→12:51)
--- NOTE | 2023-10-15 12:51 | MHC.SHP ---
Pre-Procedural Eval Section A - 24 Hr Update-Section A only Date of Service: 10/15/23 The patient is an INPATIENT: No Changes since office visit: No Cold of Flu in the past 2 weeks, No New Medical Problems, No Changes in Medication and No Patient answered all questions The patient has been examined within 24 hours of the surgical procedure. The History & Physical has been completed within 30 days and I have reviewed it.: Yes Section B - Complete if H&P > 30 days Chief Complaint: Age-related nuclear cataract, right eye Allergies: Allergies Allergy/AdvReac Type Severity Reaction Status Date / Time levonorgestrel-ethinyl Allergy Mild RUNNY NOSE Verified 02/01/23 18:30 estradiol [From Seasonale] olanzapine [From ZYPREXA] Allergy Mild UNKNOWN Verified 02/01/23 18:30 Penicillins Allergy Unknown UNKNOWN Verified 02/01/23 18:30 procaine [From Novocain] Allergy Unknown Unknown Verified 08/13/23 09:05 Plan Diagnosis/Plan: Unchanged I have reviewed the history and physical and performed a pertinent physical examination on my patient. No changes have occurred unless specified. Time Spent With Patient Time: Total time managing care of this patient today ____ minutes.
--- NOTE | 2023-10-15 12:57 | PC.NURSE ---
1233 correction allergy to procain overridden by dr. mayers
--- NOTE | 2023-10-15 13:17 | PC.NURSE ---
pt is poor iv stick x 3 rn's & finally by anesthesiologist Dr. Mao. Pt tolerated well
--- NOTE | 2023-10-15 13:46 | P.PCNO_ITS ---
Ophthalmology Procedure Procedure Date of Service: 10/15/23 Ophthalmology Viscoelastic: Healon Duet Dual Pack Pro Ophthalmology Lenses: IOL Acrysof MP - MA60AC (19) Procedure Notes: PREOPERATIVE DIAGNOSIS: Decreased visual acuity right eye secondary to cataract POSTOPERATIVE DIAGNOSIS: Same PROCEDURE: Right cataract extraction with intraocular lens insertion SURGEON: Frank Retana M.D. ANESTHESIA: Topical/MAC ESTIMATED BLOOD LOSS: None COMPLICATIONS: None After obtaining informed consent, the patient was brought to the operating room suite and placed in the supine position. After adequate sedation per anesthesia, topical drops of Tetracaine were given to the right eye. The eye was then prepped and draped in the usual sterile fashion. The operating room microscope was then positioned over the operative eye and a lid speculum placed. A paracentesis was created. Viscoelastic was then instilled into the anterior chamber. A three plane incision was then created temporally, utilizing a 2.85 mm keratome. Capsulotomy forceps were then utilized to create a circular tear capsulotomy. Hydrodissection and hydrodelineation were carried out until adequate mobilization of the nucleus occurred. Phacoemulsification was then utilized to remove the dense central nucl eus followed by removal of the cortical material utilizing the automated aspiration irrigation unit. Viscoelastic was instilled into the posterior capsular bag followed by placement of a posterior chamber intraocular lens without difficulty. The residual Viscoelastic was then removed utilizing the automated IA machine. The wound was checked and found to be watertight. The patient tolerated the procedure well and the lid speculum was removed. Intracameral injection of Vigamox 0.1 mL followed by a subtenon injection of Kenalog-40 0.2 mL were administered. The patient will be seen in the a.m.
[2023-10-15 14:26] VITALS: BP 157/79; PULSE 61; RESP 16; TEMP 36.1; O2SAT 97
== END 2023-10-15 14:33 | disposition home or self-care (01) ==
PROVIDERS: PCP Physician Assistant Medical; Visit Provider Ophthalmology
PROC: (CPT 66985; principal; 2023-10-15 12:30)
DX: H25.11 Age-related nuclear cataract, right eye (principal); H52.4 Presbyopia; H18.413 Arcus senilis, bilateral; H04.123 Dry eye syndrome of bilateral lacrimal glands; G40.909 Epilepsy, unspecified, not intractable, without status epilepticus; R26.9 Unspecified abnormalities of gait and mobility; Z91.81 History of falling; R42 Dizziness and giddiness; Z99.3 Dependence on wheelchair; Z79.899 Other long term (current) drug therapy; Z88.0 Allergy status to penicillin
CPT/HCPCS: 66984; J2250; J2704; J3010; J3301; V2630

== ENCOUNTER 2023-10-29 10:04 | Day surgery (SDC) | payer MEDICARE, MEDICAID, SELFPAY ==
[2023-10-10 14:26] VITALS: BMI 41.0
[2023-10-29 11:27] VITALS: BP 131/69; PULSE 58; RESP 18; TEMP 36.6; O2SAT 95
[2023-10-29] MEDS: Cyclopentolate 1 % Ophth Sol 2 ML DRPBTL 1 DROP EYE-LEFT ×3 (11:36→11:40)
[2023-10-29] MEDS: Ketorolac Tromethamine 0.5% Op 10 ML DROPS 1 DROP EYE-LEFT ×3 (11:37→11:40)
[2023-10-29] MEDS: Phenylephrine HCL 2.5% Oph SoL 2 ML BOTTLE 1 DROP EYE-LEFT ×3 (11:37→11:40)
[2023-10-29] MEDS: Tropicamide 1 % Ophth Sol 3 ML BTL 1 DROP EYE-LEFT ×3 (11:37→11:40)
[2023-10-29] MEDS: Lactated Ringers 500 ML 20 ML IVCONT (12:11)
--- NOTE | 2023-10-29 12:25 | P.CONAN_ITS ---
HPI - Anesthesia Eval Consult details Narrative: 72 yo F presenting for left cataract extraction IOL insertion. Had right eye done previously. Lives in a long-term. Hx of difficult IV access. [facility] Past Medical History Medical History Small jaw Thought disorder Schizophrenia Mood disorder Depression Osteoporosis Age-related macular degeneration GERD (gastroesophageal reflux disease) Seizures Cognitive developmental delay Family History Family history of problems with anesthesia: No Surgical History Surgical History History of esophagogastroduodenoscopy (EGD) Hx of lithotripsy Hx of cystoscopy History of Problems with Anesthesia: No Social History Social History Household Members Other:: resides in long-term Patient Tobacco Use Status: Never used Tobacco Use of substances other than those prescribed or required for medical reasons: No Advance Directives Information Provided: Yes (as above noted) Advance Directives on File: No Recently lost weight without trying: No Nutrition Risks: No Nutritional Risk Meds Allergies Allergy/AdvReac Type Severity Reaction Status Date / Time levonorgestrel-ethinyl Allergy Mild RUNNY NOSE Verified 02/01/23 18:30 estradiol [From Seasonale] olanzapine [From ZYPREXA] Allergy Mild UNKNOWN Verified 02/01/23 18:30 Penicillins Allergy Unknown UNKNOWN Verified 02/01/23 18:30 procaine [From Novocain] Allergy Unknown Unknown Verified 08/13/23 09:05 Active Medications: Current Medications Lactated Ringer's (Lr) 500 mls @ 20 mls/hr IVCONT .Q24H RAFAELA Last Admin: 10/29/23 12:11 Dose: 20 mls/hr Povidone Iodine (Povidone Iodine 5 % Ophth Soln 30 Ml Bottle) 1 appl EYE-LEFT PREOP PRN PRN Reason: Pre-Op Surgical Implant Prophy Tetracaine HCl (Tetracaine Hcl/Pf 0.5% Oph Johanna 4 Ml Drops) 1 drop EYE-LEFT PREOP ONE Stop: 10/29/23 11:17 Home Medications ?Medication ?Instructions ?Recorded ?Confirmed ?Last Taken ?Type acetaminophen 500 mg tablet 500 mg PO Q8H PRN Pain 10/09/23 10/09/23 Unknown History alendronate 70 mg tablet 70 mg PO QWEEK 10/09/23 10/09/23 Unknown History carbamazepine 100 mg 100 mg PO BID 10/09/23 10/09/23 Unknown History tablet,extended release,12 hr (Tegretol XR) carbamazepine 200 mg 200 mg PO BID 10/09/23 10/09/23 Unknown History tablet,extended release,12 hr (Tegretol XR) cetirizine 10 mg tablet (Zyrtec) 10 mg PO DAILY 10/09/23 10/09/23 Unknown History citalopram 10 mg tablet (Celexa) 12.5 mg PO DAILY 10/09/23 10/09/23 Unknown History dextromethorphan-guaifenesin 10 7.5 ml PO Q4-6H PRN Cough 10/09/23 10/09/23 Unknown History mg-200 mg/5 mL oral liquid docusate sodium 100 mg capsule 100 mg PO BEDTIME 10/09/23 10/09/23 Unknown History (Colace) fluticasone propionate 50 1 spray intranasal DAILY 10/09/23 10/09/23 Unknown History mcg/actuation nasal spray,suspension multivitamin 1 tab PO DAILY 10/09/23 10/09/23 Unknown History oxybutynin chloride 5 mg tablet 5 mg PO BID 10/09/23 10/09/23 Unknown History primidone 250 mg tablet (Mysoline) 250 mg PO BID 10/09/23 10/09/23 Unknown History psyllium husk 0.4 gram capsule 0.4 g PO BEDTIME 10/09/23 10/09/23 Unknown History (Reguloid (psyllium husk)) vit C 250 mg-vit E 90 mg-zinc 40 1 tab PO BID 10/09/23 10/09/23 Unknown History mg-copper 1 qa-pcyrnm-ofyhpd capsule (PreserVision AREDS-2) ziprasidone HCl 80 mg capsule 80 mg PO BID 10/09/23 10/09/23 Unknown History ([place]) Exam Exam Date and Time: October 29, 20231217 Height,Weight and Vital Signs: Height 5 ft Weight 95.3 kg Last Vital Signs Temp 97.9 F 10/29/23 11:27 Pulse 58 10/29/23 11:27 Resp 18 10/29/23 11:27 BP 131/69 10/29/23 11:27 Pulse Ox 95 10/29/23 11:27 O2 Del Method Room Air 10/29/23 11:27 Airway Mallampati Class: III TM Dist: <=3cm Neck ROM: Limited Loose/Missing/Broken Teeth: Yes (edentulous) Heart: S1S2 Lungs: CTAB Assessment and Plan Assessment Anesthesia Assessment: Anesthesia Plan Discussed and Chart Reviewed Final Anesthetic Review Family History of Problems with Anesthesia: No History of Problems with Anesthesia: No NPO: Yes ASA Class: III Final Preanesthetic Review: No Changes in Pt Med Stat, Meds/Allgs Chart Reviewed, Consent Obtained/Reviewed and Anes Risks/Benef Reviewed Patient Risk: Intermediate Procedure Risk: Low Anesthetic Plan Anesthetic Plan: MAC: and Agree w/ Assess. and Plan Disposition: Standard PACU
--- NOTE | 2023-10-29 13:43 | MHC.SHP ---
Pre-Procedural Eval Section A - 24 Hr Update-Section A only Date of Service: 10/29/23 The patient is an INPATIENT: No Changes since office visit: No Cold of Flu in the past 2 weeks, No New Medical Problems, No Changes in Medication and No Patient answered all questions The patient has been examined within 24 hours of the surgical procedure. The History & Physical has been completed within 30 days and I have reviewed it.: Yes Section B - Complete if H&P > 30 days Chief Complaint: Age-related nuclear cataract, left eye Allergies: Allergies Allergy/AdvReac Type Severity Reaction Status Date / Time levonorgestrel-ethinyl Allergy Mild RUNNY NOSE Verified 02/01/23 18:30 estradiol [From Seasonale] olanzapine [From ZYPREXA] Allergy Mild UNKNOWN Verified 02/01/23 18:30 Penicillins Allergy Unknown UNKNOWN Verified 02/01/23 18:30 procaine [From Novocain] Allergy Unknown Unknown Verified 08/13/23 09:05 Plan Diagnosis/Plan: Unchanged I have reviewed the history and physical and performed a pertinent physical examination on my patient. No changes have occurred unless specified. Time Spent With Patient Time: Total time managing care of this patient today ____ minutes.
--- NOTE | 2023-10-29 13:43 | HO.PNOPHT ---
Ophthalmology Procedure Procedure Date of Service: 10/29/23 Ophthalmology Viscoelastic: Healon Duet Dual Pack Pro Ophthalmology Lenses: IOL Acrysof MP - MA60AC (19.5) Procedure Notes: PREOPERATIVE DIAGNOSIS: Decreased visual acuity left eye secondary to cataract POSTOPERATIVE DIAGNOSIS: Same PROCEDURE: Left cataract extraction with intraocular lens insertion SURGEON: Frank Retana M.D. ANESTHESIA: General ESTIMATED BLOOD LOSS: None COMPLICATIONS: None After obtaining informed consent, the patient was brought to the operation room suite and placed in the supine position. After adequate sedation per anesthesia, topical drops of Tetracaine were given to the left eye. The eye was then prepped and draped in the usual sterile fashion. The operating room microscope was then positioned over the operative eye and a lid speculum placed. A paracentesis was created. Viscoelastic was then instilled into the anterior chamber. A three plane incision was then created temporally, utilizing a 2.85 mm keratome. Capsulotomy forceps were then utilized to create a circular tear capsulotomy. Hydrodissection and hydrodelineation were carried out until adequate mobilization of the nucleus occurred. Phacoemulsification was then utilized to remove the dense central nucleus followed by removal of the cortical material utilizing the automated aspiration irrigation unit. Viscoat elastic was instilled into the posterior capsular bag followed by placement of a posterior chamber intraocular lens without difficulty. The residual Viscoat elastic was then removed utilizing the automated IA machine. The wound was check and found to be watertight. The patient tolerated the procedure well and the lid speculum was removed. Intracameral injection of Vigamox 0.1 mL followed by a subtenon injection of Kenalog-40 0.2 mL were administered. The patient will be seen in the a.m.
[2023-10-29 14:26] VITALS: BP 158/74; PULSE 76; RESP 16; TEMP 36.3; O2SAT 94
[2023-10-29 14:31] VITALS: BP 133/66; PULSE 74; RESP 16; O2SAT 92
[2023-10-29 14:36] VITALS: BP 93/63; PULSE 69; RESP 16; O2SAT 93
[2023-10-29 14:41] VITALS: BP 128/66; PULSE 72; RESP 16; TEMP 36.7; O2SAT 94
== END 2023-10-29 15:04 | disposition home or self-care (01) ==
PROVIDERS: PCP Physician Assistant Medical; Visit Provider Ophthalmology
PROC: (CPT 66985; principal; 2023-10-29 12:00)
DX: H25.12 Age-related nuclear cataract, left eye (principal); H52.4 Presbyopia; H18.413 Arcus senilis, bilateral; H04.123 Dry eye syndrome of bilateral lacrimal glands; G40.909 Epilepsy, unspecified, not intractable, without status epilepticus; R26.9 Unspecified abnormalities of gait and mobility; R42 Dizziness and giddiness; Z79.51 Long term (current) use of inhaled steroids; Z79.899 Other long term (current) drug therapy; Z88.0 Allergy status to penicillin; Z88.8 Allergy status to other drugs, medicaments and biological substances
CPT/HCPCS: 66984; J1100; J2250; J2405; J2704; J3301; V2630

== ENCOUNTER 2024-07-11 10:31 | Emergency (ER) | payer MEDICARE, MEDICAID, SELFPAY ==
--- NOTE | ~2024-07-11 | US_ITS ---
CLINICAL HISTORY: leg pain, no longer bear weight Right lower extremity venous duplex ultrasound Comparison: None Findings: The visualized deep veins are fully compressible with normal flow. The posterior tibial and peroneal veins were not visualized. No popliteal cyst. Impression: No deep vein thrombosis. This document has been electronically signed by: Alyse Warren MD on 07/11/2024 17:02:54
--- NOTE | ~2024-07-11 | XR_ITS ---
EXAMINATION: XR FEMUR 2 VIEWS RIGHT HISTORY: pain COMPARISON: Correlation is made with plain films of the right knee dated 08/12/2022. FINDINGS: AP and lateral views of the right femur are submitted. Osseous mineralization is normal. There is no fracture or dislocation. The hip joint space is maintained. There is narrowing of the medial compartment of the knee. The soft tissues are unremarkable. XR/XR femur RT 2V IMPRESSION: No evidence of fracture of the right femur. Electronically signed by: Austin Jenkins MD 07/11/2024 03:58 PM EDT
[2024-07-11 10:37] VITALS: BP 118/67; PULSE 72; RESP 18; TEMP 37.2; O2SAT 95; BMI 41.8
--- NOTE | 2024-07-11 15:07 | ED.LOWEXIN ---
HPI - Extremity Injury (Lower) General Chief Complaint: Extremity Injury, Lower Stated Complaint: R Upper Quadrant Pain No Injury Time Seen by Provider: 07/11/24 14:23 Source: patient Mode of arrival: ambulatory Limitations: no limitations History of Present Illness ED Provider: YIFAN DUNBAR PA-C HPI Narrative: 73 year old female with pmhx significant for schizophrenia, mood disorder, seizure, cognitive developmental delay, GERD presents to the ED today from detention for evaluation of right thigh pain since 0200 this morning. She reports waking up around 0200 to use the bathroom and noticed the pain at that time. Pain is localized to the medial aspect of her right thigh. No radiation. She trialed Tylenol at 0200 which temporarily improved her pain and she was able to fall back asleep. She reports waking up again around 0700 with continued pain. She is wheel chair bound at baseline. She is typically able to bear weight to transition out of/ into her wheelchair however now reports pain on bearing weight. Denies blunt injury/ trauma. Denies numbness/tingling/weakness of the LEs. No calf pain. No chest pain, palpitations. Related Data Home Medications ?Medication ?Instructions ?Recorded ?Confirmed acetaminophen 500 mg tablet 500 mg PO Q8H PRN Pain 10/09/23 10/09/23 alendronate 70 mg tablet 70 mg PO QWEEK 10/09/23 10/09/23 carbamazepine 100 mg 100 mg PO BID 10/09/23 10/09/23 tablet,extended release,12 hr (Tegretol XR) carbamazepine 200 mg 200 mg PO BID 10/09/23 10/09/23 tablet,extended release,12 hr (Tegretol XR) cetirizine 10 mg tablet (Zyrtec) 10 mg PO DAILY 10/09/23 10/09/23 citalopram 10 mg tablet (Celexa) 12.5 mg PO DAILY 10/09/23 10/09/23 dextromethorphan-guaifenesin 10 7.5 ml PO Q4-6H PRN Cough 10/09/23 10/09/23 mg-200 mg/5 mL oral liquid docusate sodium 100 mg capsule 100 mg PO BEDTIME 10/09/23 10/09/23 (Colace) fluticasone propionate 50 1 spray intranasal DAILY 10/09/23 10/09/23 mcg/actuation nasal spray,suspension multivitamin 1 tab PO DAILY 10/09/23 10/09/23 oxybutynin chloride 5 mg tablet 5 mg PO BID 10/09/23 10/09/23 primidone 250 mg tablet (Mysoline) 250 mg PO BID 10/09/23 10/09/23 psyllium husk 0.4 gram capsule 0.4 g PO BEDTIME 10/09/23 10/09/23 (Reguloid (psyllium husk)) vit C 250 mg-vit E 90 mg-zinc 40 1 tab PO BID 10/09/23 10/09/23 mg-copper 1 uk-lbpnpd-frihtk capsule (PreserVision AREDS-2) ziprasidone HCl 80 mg capsule 80 mg PO BID 10/09/23 10/09/23 (Geodon) Allergies Allergy/AdvReac Type Severity Reaction Status Date / Time levonorgestrel-ethinyl Allergy Mild RUNNY NOSE Verified 07/11/24 10:41 estradiol [From Seasonale] olanzapine [From ZYPREXA] Allergy Mild UNKNOWN Verified 07/11/24 10:41 Penicillins Allergy Unknown UNKNOWN Verified 07/11/24 10:41 procaine [From Novocain] Allergy Unknown Unknown Verified 07/11/24 10:41 Review of Systems Review of Systems: Yes all other systems are reviewed and are negative [facility] Past Medical History Attestation statement: The following information was validated with the patient. Source: old records reviewed and nursing notes reviewed Medical History Small jaw Thought disorder Schizophrenia Mood disorder Depression Osteoporosis Age-related macular degeneration GERD (gastroesophageal reflux disease) Seizures Cognitive developmental delay Surgical History History of esophagogastroduodenoscopy (EGD) Hx of lithotripsy Hx of cystoscopy Social History Social History Household Members Other:: resides in detention Patient Tobacco Use Status: Never used Tobacco Advance Directives: No Advance Directives Information Provided: Yes Physical Exam Vital Signs: Vital Signs: Last Vital Signs Temp 98.9 F 07/11/24 10:37 Pulse 72 07/11/24 10:37 Resp 18 07/11/24 10:37 BP 118/67 07/11/24 10:37 Pulse Ox 95 07/11/24 10:37 O2 Del Method Room Air 07/11/24 10:37 BMI result Body Mass Index 41.8 Vital signs stable General: Well appearing, in no acute distress. Skin: Warm, dry, intact. No rashes or lesions. Head: Normocephalic, atraumatic. EENT: Hearing is intact b/l. Conjunctiva clear. PERRLA. EOM intact. Moist mucous membranes.? Cardiac: Chest wall symmetric. RRR. Lungs: Normal respiratory effort without accessory muscle use. CTA bilaterally Back: No midline spinous or paraspinal tenderness. No step off deformity. Ext: +no overlying swelling or skin changes noted to right thigh or rest of right lower extremity. No deformity. Full ROM intact to right hip, right knee. no reproducible tenderness to right thigh or knee. 2+ PT/DP and popliteal pulse intact. Extremity is warm. Cap refill less than 2 seconds. No noted edema. no calf tenderness. Neuro: AOx3. Normal speech. wheel chair bound - ambulation not assessed. Course Course Course Narrative: xr right femur negative. venous duplex RLE without clot or harris's cyst. on re-evaluation, she reports improvement with tylenol. Patient has remained stable throughout ED visit today. Discussed worrisome signs and symptoms and when to return to the ED. All questions answered at this time. Patient is agreeable with disposition and stable for discharge. Medications Administered Discontinued Medications Generic Name Dose Route Start Last Admin Trade Name Freq PRN Reason Stop Dose Admin Acetaminophen 975 mg 07/11/24 15:18 07/11/24 16:16 Acetaminophen 325 Mg Tablet PO 07/11/24 15:19 975 mg ONCE ONE Administration Medical Decision Making Medical Decision Making MDM Narrative: 73 year old female with pmhx significant for schizophrenia, mood disorder, seizure, cognitive developmental delay, GERD presents to the ED today from detention for evaluation of right thigh pain since 0200 this morning. she is well appearing and in NAD. on exam of RLE there is no overlying swelling or skin changes noted to right thigh or rest of right lower extremity. No deformity. Full ROM intact to right hip, right knee. no reproducible tenderness to right thigh or knee. 2+ PT/DP and popliteal pulse intact. Extremity is warm. Cap refill less than 2 seconds. No noted edema. no calf tenderness. Differential diagnosis includes contusion, msk sprain/strain, tendonitis, fracture, DVT Plan for xr, ultrasound, re-evaluation. Differential Diagnosis Differential Diagnoses: The differential diagnosis associated with the presentation includes as above. Admission/Observation not indicated. Independent Interpretation I performed an independent interpretation of an: Plain X-Ray and Ultrasound Interpretation: xray right femur without fracture venoug duplex without clot, no harris's cyst Radiology Impression Discussion of test interpretation with radiology: I have reviewed the radiologist's reading. Radiologist Impression: Procedure(s): US venous duplex LE RT Accession Number(s): [id number] cc: Nataliia Jackson; Davy Rivera~ CLINICAL HISTORY: leg pain, no longer bear weight Right lower extremity venous duplex ultrasound Comparison: None Findings: The visualized deep veins are fully compressible with normal flow. The posterior tibial and peroneal veins were not visualized. No popliteal cyst. Impression: No deep vein thrombosis. Procedure(s): XR femur RT 2V Accession Number(s): [id number] cc: Nataliia Jackson; Davy Rivera~ EXAMINATION: XR FEMUR 2 VIEWS RIGHT HISTORY: pain COMPARISON: Correlation is made with plain films of the right knee dated 08/12/2022. FINDINGS: AP and lateral views of the right femur are submitted. Osseous mineralization is normal. There is no fracture or dislocation. The hip joint space is maintained. There is narrowing of the medial compartment of the knee. The soft tissues are unremarkable. XR/XR femur RT 2V IMPRESSION: No evidence of fracture of the right femur. Independent Historian Clinical information obtained from an independent historian. History obtained from or confirmed by: Other (care[facility]ivers homecare ) External Record Review External record reviewed: Inpatient record Prescription Management I considered prescription management with: Pain Medication Social Determinants Patient?s care significantly limited by Social Determinants of Health including: Other Social Determinant of Health Critical Care Time Critical Care Time Critical Care Time: No Discharge Plan Discharge Clinical Impression: Pain in right leg Patient Disposition: Home, Self-Care Instructions: Leg Pain (ED) Additional Instructions: You were evaluated in the ED today for right leg pain. The x-ray of your right thigh is normal. There is no fracture. The ultrasound of your right leg does not demonstrate any clot. You may take Tylenol and Motrin at home as needed for pain. Follow up with your outpatient providers as needed. Return with new or worsening symptoms. In the case of an emergency call 911 Prescriptions: No Action multivitamin Tablet 1 tab PO DAILY ziprasidone HCl [Geodon] 80 mg Capsule 80 mg PO BID Rx Instructions: give with food (meal/snack) cetirizine [Zyrtec] 10 mg Tablet 10 mg PO DAILY citalopram [Celexa] 10 mg Tablet 12.5 mg PO DAILY Rx Instructions: takes 1 full tablet and 1/4 tablet to equal 12.5 mg carbamazepine [Tegretol XR] 100 mg Tablet Extended Release 12 Hr 100 mg PO BID alendronate 70 mg tablet 70 mg PO QWEEK Robitussin DM Max 10-200 mg/5 mL Liquid 7.5 ml PO Q4-6H PRN (Reason: Cough) acetaminophen 500 mg Tablet 500 mg PO Q8H PRN (Reason: Pain) primidone [Mysoline] 250 mg Tablet 250 mg PO BID carbamazepine [Tegretol XR] 200 mg Tablet Extended Release 12 Hr 200 mg PO BID docusate sodium [Colace] 100 mg Capsule 100 mg PO BEDTIME oxybutynin chloride [Ditropan] 5 mg Tablet 5 mg PO BID fluticasone propionate [Flonase] 50 mcg/actuation [place],Suspension 1 spray INTRANASAL DAILY Rx Instructions: administer into each nostril PreserVision AREDS-2 250-90-40-1 mg Capsule 1 tab PO BID psyllium husk [Reguloid (psyllium husk)] 0.4 gram Capsule 0.4 g PO BEDTIME Referrals: Davy Rivera PA [Primary Care Provider] - Print Language: Azerbaijani
--- NOTE | 2024-07-11 15:54 | PC.NURSE ---
US at the bedside
--- NOTE | 2024-07-11 15:54 | MHC.EDTECH ---
purwick placed on pt
--- OUTSIDE RECORDS SUMMARY | 2024-07-11 16:08 | XMS_ITS | Encounter Summary ---
Author Organization [place] [address] Care Team Providers Care Assistive Technology Trainer Name Role Phone Davy Rivera Primary Care Provider [phone] Reason for Visit * Reason Onset Date Comments Leg Pain 06/17/2024 Nail Problem 06/17/2024 Encounter Details Date Type Department Care Team (Late st Contact Info) Description 06/17/2024 Telephone Adult Medicine [facility] [address] [place] [phone] Davy Rivera PA [address] [place], [place] [id number] Leg Pain; Nail Problem Social History Tobacco Use Types Packs/Day Years Used Date Smoking Tobacco: Never Smokeless Tobacco: Never Alcohol Use Standard Drinks/Week Comments No 0 (1 standard drink = 0.6 oz pur e alcohol) Comments Unknown Sex and Gender Information Value Date Recorded Sex Assigned at Not on file Legal Sex Female 9:12 PM EST Gender Identity Not on file Sexual Orientation Not on file documented as of this encounter Progress Notes * Alyse Jauregui RN - 06/17/2024 3:37 PM EDT [facility] . He is calling to obtain an apt. For this pt. Because she is complaining of rt foot middle toe pain and left foot 5th digit . He states her lower legs are swollen but there always swollen and she was seen by the aws consultant and placed on antibiotics . Iselin sts the toe has redness but it is not spreading and the left foot seems fine no fever or chills . Pt. Does have swelling slightly pas swelling according to him but no c/o of calf pain or redness or heatApt. Made for today * Vanessa Varela - 06/17/2024 3:16 PM EDT Patient call requires triage: Symptoms patient is presenting: [facility] with [facility] is calling [facility] patient - states she is having pain in both legs and is also having some issues with toenails - would like her to be seen How long has patient had these symptoms?: few days For ALL patients calling to schedule any appointment (routine, sick visit, follow up, consult, etc.) in the outpatient setting please ask the following questions: Do you have fever of higher than 101, sore throat with difficulty swallowing or severe shortness ofbreath? no If YES to any of these above symptoms, send a message to triage and do not book. Red dot. If no, an audio or video visit should be booked. Have you had close contact with someone with Coronavirus in the last 14 days? no Have you traveled abroad? no Have you traveled recently to another state outside of [place], [place], [place], [place], [place]? no o If yes, did you quarantine for 14 days or have a negative covid test? no If yes to any of the above, patient is not to be scheduled in office until after 14 day quarantine or negative covid test. If pain or injury related was it due to an accident at work or from a motor vehicle accident? If yes, date of accident/Injury: No If yes, gather 3rd republican insurance information Third Democrat Information: not applicable PCP: DEIMAN Weinstein Payor: MEDICARE / Plan: MEDICARE PART A & B / Product Type: Medicare / documented in this encounter Plan of Treatment Upcoming Encounters Date Type Department Care Team (Late st Contact Info) Description 07/21/2024 10:45 AM EDT Office Visit Adult Medicine [address] [phone] Davy Rivera PA [address] [place] [address] 08/25/2024 10:15 AM EDT Office Visit Orthopedic Surgery - [place] [id number] [phone] Carlos Brown, DPM [address] [address] 03/18/2025 11:00 AM EST Office Visit Adult Medicine [address] [phone] Davy Rivera PA [address] [place] [address] documented as of this encounter Visit Diagnoses Not on filedocumented in this encounter Care Teams Assistive Technology Trainer Relationship Specialty Start Date End Date Davy Rivera PA [address] [place] [address] PCP - General Internal Medicine 04/29/20 documented as of this encounter
--- OUTSIDE RECORDS SUMMARY | 2024-07-11 16:08 | XMS_ITS | Clinical Summary ---
Author Organization [facility] Address [address] [place] [id number] Care Team Providers Care Gambling Box Person Name Role Phone Davy Rivera PA-C Primary Care Provider Allergies Active Allergy Reactions Criticality Noted Date Comments Lidocaine 10/19/2020 Penicillins 10/19/2020 Medications Medication Sig Dispensed Refills Start Date End Date Status chlorhexidine (PERIDEX) 0.12 % solution 15 mL 2 (two) times a day. 0 Active nystatin (MYCOSTATIN) powder Apply 1 application topically 3 (three) times a day. 0 Active fluticasone (FLONASE) 50 MCG/ACT nasal spray spray/apply 2 sprays in each nostril daily. 0 Active acetaminophen (TYLENOL) 325 MG tablet Take 650 mg by mouth every 6 (six) hours as needed for pain. 0 Active alendronate (FOSAMAX) tablet 70 mg Take 70 mg by mouth every 7 days. Take with water on empty stomach/Nothing by mouth and do not lie down for next 30 minutes 0 Active Multiple Vitamin (MULTI-VITAMIN DAILY PO) Take 1 tablet by mouth daily. 0 Active cetirizine (ZyrTEC) 10 MG tablet Take 10 mg by mouth daily. 0 Active Psyllium 400 MG CAPS Take 1 capsule by mouth every evening. 0 Active docusate sodium (COLACE) 100 MG capsule Take 100 mg by mouth every evening. 0 Active oxybutynin (DITROPAN) 5 MG tablet Take 5 mg by mouth 2 (two) times a day. 0 Active guaiFENesin-dextrome thorphan (ROBITUSSIN DM) 100-10 MG/5ML liquid Take 10 mL by mouth every 6 (six) hours as needed. 0 Active hydrocortisone 2.5 % cream Apply 1 application topically 2 (two) times a day. 0 Active ketoconazole (NIZORAL) 2 % cream Apply 1 application topically 2 (two) times a day. 0 Active psyllium (METAMUCIL) 0.52 g capsule Take 0.52 g by mouth daily. 0 Active alum & mag hydroxide-simethicon e (Nina-Lanta) 200-200-20 MG/5ML suspension Take 5 mL by mouth as needed for indigestion. 0 Active Multiple Vitamins-Minerals (PRESERVISION AREDS PO) Take 1 tablet by mouth daily. 0 Active triamcinolone (KENALOG) 0.1 % cream Apply 1 application topically 2 (two) times a day. 0 Active Clobetasol Prop Emollient Base 0.05 % emollient cream Apply 1 application topically 2 (two) times a day. 0 Active ziprasidone (GEODON) 80 MG capsule Take 80 mg by mouth 2 (two) times a day with meals. 0 Active primidone (MYSOLINE) 250 MG tablet Take 250 mg by mouth 2 (two) times a day. 0 Active carBAMazepine (TEGretol XR) 100 MG 12 hr tablet Take 100 mg by mouth 2 (two) times a day. 0 Active carBAMazepine (TEGretol) 200 MG tablet Take 200 mg by mouth 2 (two) times a day with meals. 0 Active citalopram (CeleXA) 10 MG tablet Take 10 mg by mouth daily. 0 Active Active Problems No known active problems Family History Medical History Relation Name Comments Cancer Mother Cancer Sister Relation Name Status Comments Mother Sister Social History Tobacco Use Types Packs/Day Years Used Date Smoking Tobacco: Never Smokeless Tobacco: Never Sex and Gender Information Value Date Recorded Sex Assigned at Not on file Gender Identity Not on file Sexual Orientation Not on file Last Filed Vital Signs Vital Sign Reading Time Taken Comments Blood Pressure 126/60 11/11/2020 2:28 PM EDT Pulse 66 11/11/2020 2:28 PM EDT Temperature 36.3 ??C (97.3 ??F) 11/11/2020 2:28 PM ED T Respiratory Rate - - Oxygen Saturation 99% 11/11/2020 2:28 PM EDT Inhaled Oxygen Concentration - - Weight 82.6 kg (182 lb) 11/11/2020 2:28 PM EDT Height - - Body Mass Index - - Plan of Treatment Health Maintenance Due Date Last Done Comments Hepatitis C Screening 1950 COVID-19 Vaccine (#1) 06[birth year]06[birth year]1950 Depression Screening 1961 Preventative Health Evaluation 12/05/1967 Colon Cancer Screening (Colonoscopy) 1994 Breast Cancer Screening (Mammogram) 12/05/1999 Shingrix-Zoster Vaccine (1 of 2) 12/05/1999 Fall Risk Assessment 2014 Osteoporosis Screening (DEXA Scan) 2014 DTap / Tdap / Td (2 - Td or Tdap) 10/15/2016 10/15/2006 Influenza Vaccine (#1) 2023 8, 12/30/2015, 12/10/2014, Additional history exists RSV Adult > 60+ Yrs or (1 - 1-dose 75+ series) 2024 Pneumococcal Vaccine Completed 10/12/2017, 07/04/19 17 Hepatitis B Vaccines Aged Out No long er eligible based on patient's age to complete this topic RSV Ped < 20 months Aged Out No longe r eligible based on patient's age to complete this topic Care Teams Gambling Box Person Relationship Specialty Start Date End Date Davy Rivera PA-C PCP - General Medical Services 11/11/20
--- OUTSIDE RECORDS SUMMARY | 2024-07-11 16:08 | XMS_ITS | Encounter Summary ---
Author Organization [employer] [place] [address] Care Team Providers Care Immunology Teacher Name Role Phone Davy Rivera Primary Care Provider [phone] Reason for Visit * Reason Onset Date Comments Request For Order(s) 07/01/2024 Encounter Details Date Type Department Care Team (Late st Contact Info) Description 07/01/2024 Telephone Adult Medicine [facility] [address] [place] [phone] Davy Rivera PA [address], [place] [phone] Request For Order(s) Social History Tobacco Use Types Packs/Day Years [...] as of this encounter Progress Notes * Jesi Velasquez MA - 07/07/2024 1:16 PM EDT ORDER FAXED BACK ON 07/07/24 Via Right Fax * Jesi Velasquez MA - 07/03/2024 1:42 PM EDT Orders placed on mikes desk for signature * Thea Leums RN - 07/01/2024 4:10 PM EDT [facility], Elvia Trying to send things since 02/27/24, 03/26, 04/11,and 05/21 Has tried to fax over a care plan that needs signature a medication list Adult day health program Please include most recent PE or office note Sent most recent office note Need to receive the fax for plan of care and send med list. * Carlos Casarez - 07/01/2024 3:36 PM EDT [facility] CALL Which [facility] office is calling? [facility] Full name of caller: Elvia The caller is Care manger Is the caller at the patients home?: no Reason for call: Looking for care plan and medication list , also asking for the most recent physical Does caller need an urgent call back? yes Was CONTACT Telephone # obtained above?: yes Fax #: [phone] ask for Elvia documented in this encounter Plan of Treatment Upcoming Encounters Date Type Department Care Team (Late st Contact Info) Description 07/21/2024 10:45 AM EDT Office Visit Adult Medicine [facility] [address] [place] [phone] Davy Rivera PA [address], [place] 08/25/2024 10:15 AM EDT Office Visit Orthopedic Surgery - [place] [address] [phone] Carlos Brown, DPM [address] [address] 03/18/2025 11:00 AM EST Office Visit Adult Medicine [address] [phone] Davy Rivera PA [address] [place] [phone] documented as of this encounter Visit Diagnoses Not on filedocumented in this encounter Care Teams Immunology Teacher Relationship Specialty Start Date End Date Davy Rivera PA [address] [place] [phone] PCP - General Internal Medicine 04/29/20 documented as of this encounter
--- OUTSIDE RECORDS SUMMARY | 2024-07-11 16:08 | XMS_ITS | Clinical Summary ---
Author Organization [address] [facility] Address [address] [place] [address] Phone Care Team Providers Care Shirt Sewer Name Role Phone Davy Rivera Primary Care Provider [phone] Allergies Active Allergy Reactions Criticality Noted Date Comments Lidocaine 04/10/2005 Penicillins 07/14/2005 Medications carbamide peroxide (Ear Drops, carbamide peroxide,) 6.5 % otic solution INSTILL 5 DROPS INTO BOTH EARS 2 TIMES DAILY FOR 10 DAYS. TILT HEAD SO EAR BEING TREATED POINTS TOWARD CEILING. HOLD MEDICATION IN EAR USING PART OF A COTTON BALL. 10/25/19 24 Active carBAMazepine (TEGretol) 100 mg chewable tablet TAKE 2 TABLETS BY MOUTH 2 TIMES DAILY IN ADDITION TO CURRENT DOSE OF 100MG EXTENDED RELEASE TWICE DAILY LABS DUE KWAME 08/21/19 24 Active acetaminophen (TYLENOL) 500 mg tablet Take 2 tablets (1,000 mg total) by mouth every 8 (eight) hours if needed. 06/29/19 24 Active dextromethorphan -guaiFENesin (ROBITUSSIN-DM) 10-100 mg/5 mL syrup Take 10 mL by mouth every 6 hours as needed for Other (cough). 06/26/19 24 Active citalopram (CeleXA) 10 mg tablet Take 1-1/4 tablets daily 04/06/20 23 Active carBAMazepine XR (TEGretol XR) 100 mg 12 hr tablet TAKE 1 TABLET BY MOUTH TWICE DAILY. IN ADDITION TO 200MG TWICE DAILY. 03/19/20 23 Active vit A/vit C/vit E/zinc/copper (PRESERVISION AREDS ORAL) Take by mouth. Active ziprasidone (GEODON) 80 mg capsule Take 1 capsule by mouth 2 times daily (with meals). 02/26/20 21 Active ketoconazole (NIZORAL) 2 % cream Apply to the rash in groin two times a day for 2 week. Repeat course if the rash reoccurs. 30 g 3 03/10/20 24 Active hydrocortisone 2.5 % cream Apply topically to the affected area in the groin twice daily for one week, once daily for one week, and every other day for one week. Repeat course if the rash occurs again 30 g 3 03/10/20 24 Active furosemide (LASIX) 20 mg tablet Take 1 tablet (20 mg total) by mouth 1 (one) time each day if needed (leg swelling). 30 each 11 03/14/20 24 Active multivitamin tablet TAKE (1) TABLET DAILY BY MOUTH IN THE MORNING. 28 tablet 5 03/31/20 24 Active oxyBUTYnin (DITROPAN) 5 mg tablet TAKE 1 TABLET BY MOUTH TWICE DAILY. 56 tablet 5 03/31/20 24 Active Reguloid, psyllium husk, 0.4 gram capsule TAKE 1 CAPSULE BY MOUTH DAILY IN PM 28 capsule 5 03/31/20 24 Active docusate sodium (COLACE) 100 mg capsule TAKE (1) CAPSULE BY MOUTH DAILY 28 capsule 5 03/31/20 24 Active primidone (MYSOLINE) 250 mg tablet TAKE (1) TABLET BY MOUTH TWICE A DAY. 56 tablet 5 03/31/20 24 Active cetirizine (ZyrTEC) 10 mg tablet TAKE 1 TABLET BY MOUTH ONCE DAILY IN THE MORNING FOR COUGH & SEASONAL ALLERGIES. 28 tablet 5 03/31/20 24 Active alendronate (FOSAMAX) 70 mg tablet TAKE 1 TABLET BY MOUTH ONCE WEEKLY IN 7 AM ,WITH 8OZ OF WATER, MUST SIT UPRIGHT FOR 30 MINUTES PRIOR TO TAKING AND AFTER TAKING MEDICATION. 4 tablet 5 03/31/20 24 Active silver sulfADIAZINE (Silvadene) 1 % cream Apply topically 1 (one) time each day. 50 g 06/11/19 25 026 Active fluticasone propionate (FLONASE) 50 mcg/actuation nasal spray INSTILL 2 SPRAYS INTO EACH NOSTRIL ONCE DAILY. 16 g 1 06/18/19 25 Active fluticasone propionate (FLONASE) 50 mcg/actuation nasal spray INSTILL 2 SPRAYS INTO EACH NOSTRIL ONCE DAILY. 16 g 05/16/19 25 025 Discontinued doxycycline (Vibramycin) 100 mg capsule Take 1 capsule (100 mg total) by mouth 2 (two) times a day for 10 days. Take with at least 8 ounces (large glass) of water, do not lie down for 30 minutes after. Administer 2 hours before or after multivitamins , antacids, or other products containing polyvalent cations (i.e., calcium, iron, magnesium, selenium, zinc). 20 each 06/11/19 25 025 mupirocin (BACTROBAN) 2 % cream Apply topically 3 (three) times a day for 7 days. 30 g 06/18/19 25 025 Active Problems Problem Noted Date Diagnosed Date Morbid obesity with BMI of 40.0-44.9, adult 01/08 Fatty liver 11/12/2023 Airway problem 03/27/2019 Overview (01/29/2024): 03/27/2019: Small jaw, short neck, unable to tolerate upper GI endoscopy under monitored anesthesia care. Needed endotracheal intubation with general anesthesia. Osteoporosis 05/13/2018 Overview (03/14/2024): Treated with Fosamax for 5 years Gallstones 09/30/2014 Overview (01/29/2024): Noted on CT on 09/30/14 Hyponatremia 10/13/2011 Overview (01/29/2024): Admission 10/09/2011 for hyponatremia and altered mental status. Sodium was 124. Disequilibrium 01/30/2008 Gait disturbance 01/30/2008 Falls frequently 12/07/2005 Disorder of bone and cartilage 12/07/2005 Overview (01/29/2024): IMO update Moderate intellectual disability 04/07/2005 Seizure disorder 04/07/2005 Encounters Date Type Department Care Team Description 07/02/2024 10:37 AM EDT - 07/02/2024 11:59 PM EDT Hospital Encounter Radiology Department [address] [phone] Encounter for screening mammogram for breast cancer Discharge Disposition: Home or Self Care 07/01/2024 Telephone Adult [address] [phone] Davy Rivera PA Request For Order(s) 06/23/2024 10:15 AM EDT Office Visit Orthopedic Surgery [place] [address] [phone] Carlos Brown DPM Ingrowing nail (Primary Dx); Moderate intellectual disability 06/17/2024 4:30 PM EDT Office Visit [address] [phone] Peri Vincent PA Great toe pain, right (Primary Dx); Ingrown nail 06/17/2024 Telephone Adult [address] [phone] Davy Rivera PA Leg Pain; Nail Problem 06/10/2024 9:30 AM EST Consult Orthopedic Surgery [facility] [address] [phone] Carlos Brown DPM Cellulitis of third toe of left foot (Primary Dx); Moderate intellectual disability; Ingrowing nail 06/02/2024 Telephone Adult Medicine [address] [phone] Davy Rivera PA Request For Order(s) 05/08/2024 Telephone Adult [address] [phone] Davy Rivera PA Fitting for DME 04/14/2024 Telephone Adult Medicine [address] [phone] Nora Diamond, UNA Fitting for DME (Form from [facility] seating and mobility) from Last 3 Months Immunizations Name Administration Dates Next Due H1N1 Inj Preservative Free 04/08/2009 Influenza Quadravalent, MDCK , 0.5ml, preservative free (Flucelvax) 6mo and older 01/25/2019 Influenza trivalent, 0.5mL ( Fluad) 65yo and older 03/13/2023,01/02/2022,06/21/2021,12/27,12/11/2016 Influenza trivalent, 0.5mL, preservative free (Fluarix; FluLaval; Fluzone) ages 6mo and older (Afluria) 3 years and older 12/30/2015,12/10/2014,02/02/2012,01/05,02/01/2010,04/08/2009,02/22/2006 ,01/20/2005 PPD Test 08/10/2015 Pneumococcal conjugate 13 va lent (Prevnar 13, PCV13) 2mo and older 10/12/2017 Pneumococcal polysaccharide 23 valent (Pneumovax 23) 2yo and older 07/03/2016 Td Tetanus diptheria (Tdvax) 7yo and older 05/04/2017,04/09/1995 Tdap Tetanus diptheria acell ular pertussis (Boostrix; Adacel) 7yo and older 10/15/2006 Zoster Live 11/22/2010 Zoster recombinant (Shingrix ) 19yo and older 07/05/2021 Surgical History Surgery Date Site/Laterality Comments OTHER SURGICAL HISTORY 2015 PROCEDURE: EXTRACTION ERUPTED TOOTH/EXR UPPER GASTROINTESTINAL ENDOSCOPY 03/27/2019 PROCEDURE: TN UPPER GI ENDOSCOPY PERFORMED; COMMENT: Esophagus normal on H2 paresh treatment. Solitary distal gastric erosion, pathology: Benign, no Helicobacter pylori infection. 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 Moderate intellectual disabilities 04/07/2005 DX:Moderate intellectual disabilities Disorder of bone and cartila ge, unspecified 12/07/2005 DX:Disorder of bone and cart ilage, unspecified Fall from other slipping, tr ipping, or stumbling 12/07/2005 DX:Fall from other slipping, tripping, or stumbling Seizure disorder ([facility]) 04/07/2005 DX:Se izure disorder ([facility]) Gallstones 09/30/2014 DX:Gallstones; C OMMENT: Noted on CT on 09/30/14 Disorder of bone and cartilage 12/07/2005 D X:Disorder of bone and cartilage; COMMENT: IMO update Disequilibrium 01/30/2008 DX:Disequilibriu m Gait disturbance 01/30/2008 DX:Gait disturb ance Morbid obesity with BMI of 4 0.0-44.9, adult ([facility]) 06/30/2009 DX:Morbid obesity with BMI o f 40.0-44.9, adult ([facility]) Hyponatremia 10/13/2011 DX:Hyponatremia; COMMENT: Admission 10/09/2011 for hyponatremia and altered mental status. Sodium was 124. Airway problem 03/27/2019 DX:Airway proble m; COMMENT: 03/27/2019: Small jaw, short neck, unable to tolerate upper GI endoscopy under monitored anesthesia care. Needed endotracheal intubation with general anesthesia. Family History Medical History Relation Name Comments Breast cancer Mother ? age Breast cancer Sister 40s Relation Name Status Comments Father Mother ? age Sister 40s Alive Social History Tobacco Use Types Packs/Day Years Used Date Smoking Tobacco: Never Smokeless Tobacco: Never Tobacco Cessation:Counseling Given: Not Answered Alcohol Use Standard Drinks/Week Comments No 0 (1 standard drink = 0.6 oz pur e alcohol) Comments Unknown Sex and Gender Information Value Date Recorded Sex Assigned at Not on file Legal Sex Female 9:12 PM EST Gender Identity Not on file Sexual Orientation Not on file Obstetrics History Para Term AB IAB SAB Ectopic Multiple Livin g Live Births 0 0 0 0 Last Filed Vital Signs Vital Sign Reading Time Taken Comments Blood Pressure 128/87 06/17/2024 4:18 PM EDT Pulse 66 06/17/2024 4:18 PM EDT Temperature 37.1 ??C (98.7 ??F) 06/17/2024 4 :18 PM EDT staff reported Respiratory Rate 18 03/14/2024 11:0 7 AM EST Oxygen Saturation 97% 03/10/2024 1:4 8 PM EST Inhaled Oxygen Concentration - - Weight 95.3 kg (210 lb) 06/23/2024 10:4 2 AM EDT Height 152.4 cm (5') 06/23/2024 10:42 AM EDT Body Mass Index 41.01 06/23/2024 10:42 AM EDT Plan of Treatment Upcoming Encounters Date Type Department Care Team (Late st Contact Info) Description 07/21/2024 10:45 AM EDT Office Visit Adult [address] [phone] Davy Rivera, PA [address] [place], [place] 08/25/2024 10:15 AM EDT Office Visit Orthopedic Surgery - [place] [address] [phone] Carlos Brown, DPM [address] [phone] 03/18/2025 11:00 AM EST Office Visit [address] [phone] Davy Rivera, [place] [address] [place] [address] Health Maintenance Due Date Last Done Comments Hepatitis A Vaccines (1 of 2 - Risk 2-dose series) 1968 Hepatitis B Vaccines (1 of 3 - Risk 3-dose series) 2009 RSV Immunization Adult Patients (1 - Risk 60-74 years 1-dose series) 2009 Zoster Vaccines (3 of 3) 08/30/2021 07/05/2021, 11/07 Social Influencers of Health Screening 03/18/2022 Depression Screening 03/13/2024 03/13/2023 Falls Risk Assessment 03/13/2024 03/13/2023 Medicare Annual Wellness Visit 03/13/2024 03/13/2023 Colorectal Cancer Screening: FIT-DNA (Cologuard) 08/01/2025 08/01/2022 Breast Cancer Screening 07/02/2026 07/03/19 25, 07/04/2023, 06/26/2023, Additional history exists DTaP,Tdap,and Td Vaccines (4 - Td or Tdap) 05/04/2027 05/04/2017, 10/15/2006, 04/09/1995 Osteoporosis Screening (Bone Density Screening) 05/13/2028 05/13/2018 Cholesterol Screening (Lipid Panel) 09/13/2028 09/14/2023, 09/14/2023 Pneumococcal Vaccine: 50+ Years Completed 10/12/2017, 07/03/2016 Hepatitis C Screening Completed 01/28/2024 Influenza Vaccine Completed 02/09/2024, , 01/02/2022, Additional history exists COVID-19 Vaccine Completed 02/18/2024, 07/05/2021 HIB Vaccines Aged Out No longer eligi ble based on patient's age to complete this topic HPV Vaccines Aged Out No longer eligi ble based on patient's age to complete this topic IPV Vaccines Aged Out No longer eligi ble based on patient's age to complete this topic MMR Vaccines Aged Out No longer eligi ble based on patient's age to complete this topic Meningococcal ACWY Vaccine Aged Out N o longer eligible based on patient's age to complete this topic Meningococcal B Vacine Aged Out No lo nger eligible based on patient's age to complete this topic RSV Immunization Patients Under 20 months Aged Out No longer eligible based on patient's age to complete this topic Varicella Vaccines Aged Out No longer eligible based on patient's age to complete this topic Procedures Procedure Name Priority Date/Time Associated Diagnosis Comments MG MAMMO DIGITAL SCREENING W JAMES BILAT Routine 07/02/2024 11:21 AM EDT Encounter for screening mammogram for breast cancer HEPATITIS C SCREENING Routine 01/28/2024 LIPID PANEL Routine 09/14/2023 DEPRESSION SCREENING Routine 03/13/2023 FALLS RISK ASSESSMENT Routine 03/13/2023 DXA BONE DENSITY STUDY 1+ SITS AXIAL SKEL Routine 05/13/2018 11:35 AM EST Epilepsy, unspecified, not intractable, without status epilepticus (CMS/HCC) Moderate intellectual disabilities Disorder of bone, unspecified Disorder of cartilage, unspecified from Last 3 Months or Most Recently Relevant to Health Maintenance Results * MG Mammo Digital Screening w James bilat (07/02/2024 11:21 AM EDT) Anatomical Region Laterality Modality Breast Bilateral Mammography 07/02/2024 1:47 PM EDT Impressions 07/02/2024 1:57 PM EDT Benign. BI-RADS CATEGORY: 2 - BENIGN RECOMMENDATION: Screening bilateral mammogram is recommended in 1 year. Mammo Location: [facility], [address] [place] [address], [id number], . -------- FINAL REPORT -------- Dictated By: Aaliyah Littlejohn Dictated Date: 07/02/2024 13:47 ET Assigned Physician: Aaliyah Littlejohn Reviewed and Electronically Signed By: Aaliyah Littlejohn Signed Date: 07/02/2024 13:57 ET Workstation ID: [id number] Transcribed By: Self Edit Transcribed Date: 07/02/2024 13:47 ET Narrative 07/02/2024 1:57 PM EDT CLINICAL: 73 years old, Female, routine annual exam. COMPARISON: Mammograms dating back to 05/12/2020 with most recent of 06/20/2023. ?? TECHNIQUE: Bilateral MLO and CC views were obtained digitally with 3-D mammogram (digital breast tomosynthesis). Computer-aided detection was utilized in evaluation of this exam (CAD). FINDINGS: There is no evidence of suspicious mass or architectural distortion. ??No worrisome calcifications are evident. ??Postoperative changes of the left breast are again noted. ??There is a biopsy clip in the left breast. ??There has been no significant change from prior exam(s). ?? BREAST DENSITY: C - The breasts are heterogeneously dense which may obscure small masses. Procedure Note Aaliyah Littlejohn MD - 07/02/2024 CLINICAL: 73 years old, Female, routine annual exam. COMPARISON: Mammograms dating back to 05/12/2020 with most recent of06/20/2023. TECHNIQUE: Bilateral MLO and CC views were obtained digitally with 3-Dmammogram (digital breast tomosynthesis). Computer-aided detection wasutilized in evaluation of this exam (CAD). FINDINGS: There is no evidence of suspicious mass or architectural distortion. Noworrisome calcifications are evident. Postoperative changes of the leftbreast are again noted. There is a biopsy clip in the left breast. Therehas been no significant change from prior exam(s). BREAST DENSITY: C - The breasts are heterogeneously dense which mayobscure small masses. IMPRESSION: Benign. BI-RADS CATEGORY: 2 - BENIGN RECOMMENDATION: Screening bilateral mammogram is recommended in 1 year. Mammo Location: [facility], [address] [place] [address], [id number], . -------- FINAL REPORT -------- Dictated By: Aaliyah Littlejohn Dictated Date: 07/02/2024 13:47 ET Assigned Physician: Aaliyah Littlejohn Reviewed and Electronically Signed By: Aaliyah Littlejohn Signed Date: 07/02/2024 13:57 ET Workstation ID: [id number] Transcribed By: Self Edit Transcribed Date: 07/02/2024 13:47 ET Davy ARCINIEGA IMG BI PROCEDURES Final R esult * Hepatitis C Screening (01/28/2024) Pathologist [facility] Hepatitis C Screening Abstracted Historical Provider HEALTH MAINTENANCE Final Result * Lipid panel (09/14/2023) LDL/HDL Ratio 2 0 - 4 Triglycerides 120 0 - 150 mg/dL Cholesterol 197 0 - 200 mg/dL HDL 87 >=40 mg/dL LDL Cholesterol 86 0 - 100 mg/dL Blood Venous blood specimen / Unknown Historical Provider LAB BLOOD ORDERABLES Xiomara l Result * Falls Risk Assessment (03/13/2023) Falls Risk Assessment Abstracted us Historical Provider MD HEALTH MAINTENANCE Final Result * Depression Screening (03/13/2023) HM Depression Screening Abstracted us Historical Provider MD HEALTH MAINTENANCE Final Result * DXA BONE DENSITY STUDY 1+ SITS AXIAL SKEL (05/13/2018 11:35 AM EST) Anatomical Region Laterality Modality Bone Densitometr y 10/12/2017 3:22 PM EDT Narrative 05/13/2018 2:02 PM EST BONE DENSITY ? Lumbar Spine T-score is -2.3 ?? (SD relative to 20-29 y/o adult) Z-score is -0.3 ??(SD relative to age matched peers) This is consistent with osteopenia by criteria defined by the WHO. Left Hip T-score is -2.9 Z-score is -1.2 This is consistent with osteoporosis by criteria defined by the WHO. Impression: Based on the World Health Organization criteria, Yahaira Hendrix should be classified as having osteoporosis. The [facility] Department of Internal Medicine recommends using National Osteoporosis Foundation (NOF) guidelines in treatment decisions related to osteoporosis. NOF guidelines suggest considering treatment for postmenopausal women and men aged 50 or older presenting with the following: History of hip or vertebral fracture. T-score less than or equal to -2.5 (DXA) at the femoral neck, total hip, or spine, after appropriate evaluation to exclude secondary causes. Low bone mass (T-score between -1.0 and -2.5 at the femoral neck or spine) AND a 10-year probability of a hip fracture greater than or equal to 3% OR a 10-year probability of a major osteoporosis-related fracture greater than or equal to 20% based on the [place]-adapted WHO algorithm Please note that all treatment decisions require clinical judgment and consideration of individual patient factors, including patient preferences, co-morbidities, previous drug use, risk factors not captured in the FRAX model (e.g., frailty, falls, vitamin D deficiency, increased bone turnover, interval significant decline in bone density) and possible under- or over-estimation of fracture risk by FRAX. Procedure Note Shmuel Justice MD - 03/28/2022 BONE DENSITY Lumbar Spine T-score is -2.3 (SD relative to 20-29 y/o adult) Z-score is -0.3 (SD relative to age matched peers) This is consistent with osteopenia by criteria defined by the WHO. Left Hip T-score is -2.9 Z-score is -1.2 This is consistent with osteoporosis by criteria defined by the WHO. Impression: Based on the World Health Organization criteria, Yahaira Hendrix should beclassified as having osteoporosis. The [facility] Department of Internal Medicine recommendsusing National Osteoporosis Foundation (NOF) guidelines in treatmentdecisions related to osteoporosis. NOF guidelines suggest consideringtreatment for postmenopausal women and men aged 50 or older presentingwith the following: History of hip or vertebral fracture. T-score less than or equal to -2.5 (DXA) at the femoral neck, total hip,or spine, after appropriate evaluation to exclude secondary causes. Low bone mass (T-score between -1.0 and -2.5 at the femoral neck or spine)AND a 10-year probability of a hip fracture greater than or equal to 3% ORa 10-year probability of a major osteoporosis-related fracture greaterthan or equal to 20% based on the [place]-adapted WHO algorithm Please note that all treatment decisions require clinical judgment andconsideration of individual patient factors, including patientpreferences, co-morbidities, previous drug use, risk factors not capturedin the FRAX model (e.g., frailty, falls, vitamin D deficiency, increasedbone turnover, interval significant decline in bone density) and possibleunder- or over-estimation of fracture risk by FRAX. Davy GALLO DXA PROCEDURES Final Result from Last 3 Months or Most Recently Relevant to Health Maintenance Insurance MEDICARE MEDICAID - [place] Care Teams Shirt Sewer Relationship Specialty Start Date End Date Davy Rivera PA [address] [place] [address] PCP - General Internal Medicine 04/29/20
--- OUTSIDE RECORDS SUMMARY | 2024-07-11 16:08 | XMS_ITS | Data Portability ---
Author Organization [place] - [facility], Allergy Address [address] [place] [address] Care Team Providers Care [employer]ner Name Role Phone ANTONIO JOHNSON Primary Care Provider [phone] Assessment Encounter Date Assessment Date Assessment LastModified by Organization Details LastModified Time 11/22/2023 11/22/2023 Recommendations: Follow up with referring provider. [email or web address] Not available 11/22/2023 10:27:16 11/22/2023 11/22/2023 Impacted cerumen was debrided from the right ear today. Audiometric testing demonstrates a mild to moderate sensorineural hearing loss bilaterally. We reviewed her audiogram. She is a candidate for amplification, but she is not certain she wishes to proceed. She may follow up with us as needed. [email or web address] [email or web address] Not available 11/22/2023 10:20:04 Plan of Treatment Reminders Order Date Submit Date Provider Last Modified By Organization Details Last Modified Time Details Appointments None recorded . Lab None recorded . Referral None recorded . Procedures None recorded . Surgeries None recorded . Imaging None recorded . Medication Orders Debrox 6.5 % ear drops 024 024 [facility], [address] [place], [address], 4 11:19:53 Patient TargetsNo targets recorded. Patient InstructionsNo instructions recorded. Reason for Referral None Reported. Results Created Date Observation Date Name Description Value Unit Range Abnormal Flag Note LastModifiedBy Organization Detail LastModifiedTime 11/23/19 24 audio gram No observ ation record ed. BARCODE Not Available 2023 09:14:25 Result Notes None recorded. Problems Name Problem SNOMED Code Status Onset Date Resolution Date Notes Provider Name and Address Organization Details Recorded Time Benign neoplasm of skin of right ear [id number] 85580 Completed 201611/09/2023 Other benign neoplasm of skin of right ear and external auricula r canal; Note: Date Diagnose d: 7 2:35 PM (D23.21) Not Available [facility] 4 03:08:17 Infectiv e otitis externa of right ear [id number] 00947 Completed 201611/09/2023 Other infectiv e otitis externa, right ear; Note: Date Diagnose d: 04/14/2016 9:52 AM (H60.391 ) Not Available [facility] 4 03:08:17 Otorrhea of right ear [id number] 64572 Completed 201611/09/2023 Otorrhea , right ear; Note: Date Diagnose d: 04/14/2016 9:52 AM (H92.11) Not Available [facility] 4 03:08:18 Impacted cerumen in left ear 55632074017 64312 Active 2016 Impacted cerumen, left ear; Note: Date Diagnose d: 04/17/2016 9:28 AM (H61.22) Not Available [facility] 4 03:08:18 Impacted cerumen of bilatera l ears 78785747323 66582 Active 2023 AMY WHITAKER MD [address],[place] [address], [place], [address] , [place] - [facility] 4 11:17:19 Sensorin eural hearing loss of bilatera l ears 968559189 Active 2023 AMY WHITAKER MD [address] [place] [address],[place] [address], [place], [address] , [place] - [facility] 4 11:17:24 Impacted cerumen in right ear 87620191371 81517 Active 2023 ROSY CHOW PA-C [address],[place] [address], [place], [address] , [place] - [facility] 4 09:57:47 Problem Notes None recorded. Procedures Surgical History Date Name Laterality Status Provider Name and Address Organization Details Recorded Time 11/22/19 24 Tympanometry (51627) completed DEANNA POSEY, AuD [address], [address], [facility] 11/22/2023 10:27:39 11/22/19 24 [employer] (51112) completed DEANNA POSEY AuD [address], [address], [facility] 11/22/2023 10:27:35 11/22/19 24 SRT/SAT (56615) completed DEANNA POSEY AuD [address], [address], [facility] 11/22/2023 10:27:45 11/22/19 24 Cerumen removal without microscope right completed ROSY CHOW PA-C [address], [address], [facility] 11/22/2023 10:21:24 10/18/19 24 Cerumen removal with microscope bilateral completed AMY WHITAKER MD [address], [address], [facility] 10/18/2023 11:17:11 Imaging Results Imaging Date Name Status LastModified by Organiz ation Details LastModified Time 11/23/2023 audiogram completed BAR[facility] Information no t available 11/23/2023 09:14:25 Procedure Notes None recorded. Medical Equipment None Reported. Allergies Allergen ID Allergen Name Allergen Category Reaction Reaction Severity Criticality Documentation Date Start Date Code Code System Note Provider Name and Address Organization Details Recorded Time 437518 Product containin g penicilli n (product) medicatio n other Not available Not available 08/21/2023 84203 2925 SNOMED React ion: unkno wn, unspe cifie d;; Not Available [facility] 01:23:19 Medications Name Sig Start Date Stop Date Status Note LastModified by Organization Details LastModified Time Prescripti on - Clarificat ion active Not Available Not Available Not Available multivitam in tablet active Not Available Not Available No t Available ziprasidon e 80 mg capsule active Not Available Not Available Not Available clindamyci n HCl 300 mg capsule active Not Available Not Available N ot Available cetirizine 10 mg tablet active Not Available Not Available Not Available citalopram 10 mg tablet active Not Available Not Available Not Available Ditropan XL 5 mg tablet,ext ended release 2016 active Medication ID: [id number] Bra nd Name: Ditropan XL Send Method: E-Prescrib ed Subs Allowed: subs OK Medicat ionGeneric Name: Ditropan XL Not Available Not Available Not Available carbamazep ine ER 100 mg tablet,ext ended release,12 hr active Not Available Not Available Not Available ondansetro n HCl 4 mg tablet TAKE ONE TABLET BY MOUTH EVERY 6 HOURS NEEDED FOR NAUSEA AND VOMITING . active Not Available Not Available No t Available alendronat e 70 mg tablet active Not Available Not Available Not Available Debrox 6.5 % ear drops INSTILL 5 DROPS INTO RIGHT EAR BY OTIC ROUTE 2 TIMES PER DAY FOR 2 WEEKS 2023 active Not Available Not Available Not Avai lable acetaminop hen 500 mg tablet active Not Available Not Available Not Available primidone 250 mg tablet active Not Available Not Available Not Available carbamazep ine 100 mg chewable tablet active Not Available Not Available Not Available docusate sodium 100 mg capsule active Not Available Not Available N ot Available nystatin 100,000 unit/gram topical powder active Not Available Not Available Not Available Tegretol 200 mg tablet active Medication ID: [id number] Bra nd Name: Tegretol S end Method: E-Prescrib ed Subs Allowed: subs OK Medicat ionGeneric Name: Tegretol Not Available Not Available Not Available oxybutynin chloride 5 mg tablet active Not Available Not Available No t Available ondansetro n 4 mg disintegra ting tablet active Not Available Not Available Not Available fluticason e propionate 50 mcg/actuat ion nasal spray,susp ension active Not Available Not Available Not Available Ventolin HFA 90 mcg/actuat ion aerosol inhaler active Not Available Not Available Not Available TobraDex 0.3 %-0.1 % eye drops,susp ension 4 drop 2016 active Medication ID: [id number] Dur ation Value: 14 Prescribe d By Name: Eda Cardenas PA-C Brand Name: TobraDex S end Method: E-Prescrib ed Subs Allowed: subs OK Special Instructio n: apply to affected ear(s) Med icationGen ericName: TobraDex Not Available Not Available Not Available ciprofloxa nghia 0.3 %-dexameth asone 0.1 % ear drops,susp ension 3 drops right ear active Not Available Not Available No t Available nitrofuran toin monohydrat e/macrocry stals 100 mg capsule TAKE ONE CAPSULE BY MOUTH EVERY 12 HOURS WITH A MEAL/ROZINA D active Not Available Not Available No t Available Celexa active Medication ID: [id number] Bra nd Name: celexa Sen d Method: E-Prescrib ed Subs Allowed: subs OK Medicat ionGeneric Name: celexa Not Available Not Available Not Available Reguloid (psyllium husk) 0.4 gram capsule active Not Available Not Available Not Available Lagevrio 200 mg capsule (EUA) TAKE 4 TABLETS BY MOUTH 2 TIMES DAILY FOR 5 DAYS. active Not Available Not Available No t Available Vitals None Recorded Social History None recorded. Functional Status None recorded. Mental Status None recorded. Family History Nothing Reported. Medical History No medical history recorded. Gynecological HistoryNo gynecological history recorded. Obstetrics History GPAL:G 0 P 0 0 0 0 Past Encounters Encounter ID Performer Location Encounter Start Date Encounter Closed Date Diagnosis/Indication Diagnosis SNOMED-CT Code Diagnosis ICD10 Code Diagnosis Note [id number] AMY WHITAKER MD [facility] on [address] [place] [phone] 10/18/2023 10:20:33 10/18/2023 11:23:28 Impacted cerumen of bilateral ears [id number] 383259 H61.23 Cerumen removed AU but incomplete ly AD. Use debrox and return for ear cleaning then audio. Sensorineu ral hearing loss of bilateral ears 304358236 H90.3 suspected [id number] ROSY CHOW PA-C [facility] on [address] [place] [id number] 11/22/2023 09:27:38 11/22/2023 10:33:58 Impacted cerumen in right ear [id number] 558861 H61.21 Sensorineu ral hearing loss of bilateral ears 016972734 H90.3 [id number] Rodney ELLIS [facility] on [address] [facility] [place] [address] 11/22/2023 10:27:06 11/22/2023 10:33:43 Sensorineural hearing loss of bilateral ears 924722239 H90.3 Audiologic al evaluation results:Ri ght ear:{{Norm al* Normal through 2 kHz Mild M oderate Mo derately-s evere Daphney re Profoun d}} {{hearing sloping to a mild slopi ng to a moderate s loping to moderately severe* sl oping to severe slo ping to profound f lat high frequency low frequency mid frequency cookie bite prater curve}} {{with sen sorineural hearing loss with* cond uctive hearing loss with mixed hearing loss with}}.Lef t ear:{{Norm al* Normal through 2 kHz Mild M oderate Mo derately-s evere Daphney re Profoun d}} {{hearing sloping to a mild slopi ng to a moderate s loping to moderately severe* sl oping to severe slo ping to profound f lat high frequency low frequency mid frequency cookie bite prater curve}} {{with sen sorineural hearing loss with* cond uctive hearing loss with mixed hearing loss with}} . Tympanomet ry:Right Ear:{{Type A* Type As Type Ad Type C Type C, shallow & rounded Ty pe B Type B with large volume Cou ld not maintain a hermetic seal}}Left Ear:{{Type A* Type As Type Ad Type C Type C, shallow & rounded Ty pe B Type B with large volume Cou ld not maintain a hermetic seal}} Health Concerns Section Related Observation LastModified by Organization Detai ls LastModified Time None Recorded Concern Status LastModified by Organization Details LastModified Time None Recorded Advance Directives Directive None Recorded Payers Encounter Date Sequence Insurance Name Policy Number Policy Escamilla Covered Member ID Escamilla Member ID Guarantor Name 10/18/2023 2 [place] [facility] Yahaira Kieran [employer] [id number] Yahaira Kieran [facility] 10/18/2023 1 [place] [employer] Yahaira Bestogh [id number] Yahaira Bestogh 11/22/2023 2 [place] [facility] Yahaira Alcaraz [facility] [id number] Yahaira Alcaraz [facility] 11/22/2023 1 [place] [facility] Yahaira Bestogh [id number] Yahaira Alcaraz [facility] 11/22/2023 2 [place] [facility] Yahaira Alcaraz [facility] [id number] Yahaira Alcaraz [facility] 11/22/2023 1 [place] [facility] Yahaira Alcaraz [facility] [id number] Yahaira Alcaraz [facility] Notes Date Note Type Note Provider Name and Address Organization Details Recorded Time 10/18/2023 text/html Presents for hearing evaluation. Has cerumen impactions. AMY WHITAKER MD [address], [address], [facility] 10/18/2023 11:18:35 11/22/2023 text/html 72 year old azeem mays with developmental delay presents with her nutter up to complete cerumen debridement and an audiogram.No new concerns today. ROSY CHOW PA-C [address], [address], [facility] 11/22/2023 10:21:52 11/22/2023 text/html Audiological Evaluation HPIReported bypatient.Hearing loss perceived:none (no hearing loss) Tinnitus reported:none Balance symptoms reported:no report of dizziness Rodney ELLIS [address], [address], [facility] 11/22/2023 10:28:55 OBGyn Episode No OBEpisode recorded.
[2024-07-11] MEDS: Acetaminophen 325 MG TABLET 975 MG PO (16:16)
[2024-07-11 19:15] VITALS: BP 142/67; PULSE 62; RESP 18; TEMP 36.7; O2SAT 96
[2024-07-11 20:09] VITALS: BP 142/67; PULSE 62; RESP 18; TEMP 36.7; O2SAT 96
== END 2024-07-11 20:11 | disposition home or self-care (01) ==
PROVIDERS: Emergency Provider Emergency Medicine; PCP Physician Assistant Medical
DX: M79.604 Pain in right leg (principal); R10.11 Right upper quadrant pain; R60.0 Localized edema
CPT/HCPCS: 73552; 93971; 99284

== ENCOUNTER → 2024-07-11 11:13 | Outpatient (BNV) | payer MEDICARE, MEDICAID, SELFPAY | PROVIDERS: PCP Physician Assistant Medical; Visit Provider Radiology Diagnostic Radiology | DX: M79.604 Pain in right leg (principal) | CPT/HCPCS: 73552 ==

== ENCOUNTER 2025-01-27 17:39 | Emergency (ER) | payer MEDICARE, MEDICAID, SELFPAY ==
--- NOTE | ~2025-01-27 | CT_ITS ---
CLINICAL HISTORY: trauma CT head without contrast Comparison: None Findings: No evidence of acute territorial infarct. There is patchy low density in the periventricular and subcortical white matter. Diffuse volume loss is noted, asymmetrically prominent involving the cerebellum. No hydrocephalus. No hemorrhage, mass effect, mass lesion or midline shift. No abnormal extra-axial fluid. No calvarial fracture. Paranasal sinuses and mastoid air cells are clear. Impression: No acute intracranial process. Chronic changes as detailed. This document has been electronically signed by: Marty Velazquez MD on 01/27/2025 20:19:01
--- NOTE | ~2025-01-27 | XR_ITS ---
CLINICAL HISTORY: pain 4 view left knee Comparison: None provided Findings: Bones intact. No dislocations. Mild tricompartmental degenerative change. No joint effusion. No radiopaque foreign body. IMPRESSION: Mild degenerative changes. No fracture or malalignment. This document has been electronically signed by: Marty Velazquez MD on 01/27/2025 20:16:35
--- NOTE | ~2025-01-27 | CT_ITS ---
CLINICAL HISTORY: trauma CT cervical spine without contrast Comparison: None Findings: There is straightening of the normal cervical lordosis. No fracture or acute malalignment. Multilevel degenerative changes with disc space narrowing throughout the cervical spine. The facet joints are normally imbricated. No prevertebral soft tissue edema. Lung apicies demonstrate no acute process. Impression: Multilevel degenerative changes without evidence of acute fracture or acute malalignment. This document has been electronically signed by: Marty Velazquez MD on 01/27/2025 20:34:00
--- NOTE | ~2025-01-27 | XR_ITS ---
CLINICAL HISTORY: trauma One view pelvis Comparison: None provided Findings: No acute fracture or dislocation. Rpyi-kh-sahetero degenerative changes of the femoral-acetabular joint bilaterally. Soft tissues are unremarkable. Fecal retention throughout the colon. IMPRESSION: 1. No acute findings. 2. Jizs-nj-tqmfmboj degenerative change. This document has been electronically signed by: Marty Velazquez MD on 01/27/2025 20:09:44
--- NOTE | ~2025-01-27 | XR_ITS ---
CLINICAL HISTORY: pain 4 view right knee Comparison: CR/SR - XR KNEE 4 OR MORE VIEWS RIGHT - 08/12/22 13:50 EDT Findings: No fractures or dislocations. Mild tricompartmental degenerative change. No joint effusion. No radiopaque foreign body. IMPRESSION: Mild degenerative changes. No fracture or malalignment. This document has been electronically signed by: Marty Velazquez MD on 01/27/2025 20:17:27
--- NOTE | ~2025-01-27 | XR_ITS ---
CLINICAL HISTORY: trauma 2 views lumbar spine Comparison: CR/SR - XR LUMBAR SPINE 2-3 VIEWS - 02/01/23 19:02 EDT Findings: Normal alignment. Demineralization and diffuse degenerative changes limit interpretation. No definite acute fracture or acute malalignment. Impression: No definite acute fracture. Demineralization and degenerative change somewhat limit interpretation. This document has been electronically signed by: Marty Velazquez MD on 01/27/2025 20:13:34
[2025-01-27 18:19] VITALS: BP 141/64; PULSE 67; RESP 14; TEMP 36.2; O2SAT 93; BMI 36.4
--- NOTE | 2025-01-27 18:23 | ED.GENADULT ---
HPI - General Adult General Chief complaint: Fall Stated complaint: fell knees/hip and back UTI? Gum check? Time Seen by Provider: 01/27/25 20:51 Source: patient and other (Caregiver) Limitations: other (Cognitive impairment) History of Present Illness ED Provider: Mayelin Reza PA-C HPI narrative: 74-year-old female with a history of schizophrenia, mood disorder, thought disorder, seizure disorder, cognitive impairment, developmental delay, with underlying gait instability, presents after fall at her residential. Per the patient, she was being assisted to the bathroom, lost her balance and fell forward. She fell onto her knees. She now complains of bilateral knee hip and back pain. There was no head strike there was no loss of consciousness. The patient does state she has dysuria. History limited secondary to the patient's cognitive impairment. Caregiver is able to corroborate her account of events that transpired prior to her arrival. Related Data Home Medications ?Medication ?Instructions ?Recorded ?Confirmed acetaminophen 500 mg tablet 500 mg PO Q8H PRN Pain 10/09/23 10/09/23 alendronate 70 mg tablet 70 mg PO QWEEK 10/09/23 10/09/23 carbamazepine 200 mg 200 mg PO BID 10/09/23 10/09/23 tablet,extended release,12 hr (Tegretol XR) cetirizine 10 mg tablet (Zyrtec) 10 mg PO DAILY 10/09/23 10/09/23 citalopram 10 mg tablet (Celexa) 12.5 mg PO DAILY 10/09/23 10/09/23 dextromethorphan-guaifenesin 10 7.5 ml PO Q4-6H PRN Cough 10/09/23 10/09/23 mg-200 mg/5 mL oral liquid docusate sodium 100 mg capsule 100 mg PO BEDTIME 10/09/23 10/09/23 (Colace) fluticasone propionate 50 1 spray intranasal DAILY 10/09/23 10/09/23 mcg/actuation nasal spray,suspension multivitamin 1 tab PO DAILY 10/09/23 10/09/23 oxybutynin chloride 5 mg tablet 5 mg PO BID 10/09/23 10/09/23 psyllium husk 0.4 gram capsule 0.4 g PO BEDTIME 10/09/23 10/09/23 (Reguloid (psyllium husk)) vit C 250 mg-vit E 90 mg-zinc 40 1 tab PO BID 10/09/23 10/09/23 mg-copper 1 rq-pvqmyv-oesros capsule (PreserVision AREDS-2) ziprasidone HCl 80 mg capsule 80 mg PO BID 10/09/23 10/09/23 (Geodon) Previous Rx's ?Medication ?Instructions ?Recorded carbamazepine 100 mg 100 mg PO BID #180 tabs 01/05/25 tablet,extended release,12 hr (Tegretol XR) primidone 250 mg tablet (Mysoline) 250 mg PO BID #180 tabs 01/05/25 Allergies Allergy/AdvReac Type Severity Reaction Status Date / Time levonorgestrel-ethinyl Allergy Mild RUNNY NOSE Verified 01/27/25 18:21 estradiol (From Seasonale) olanzapine (From ZYPREXA) Allergy Mild UNKNOWN Verified 01/27/25 18:21 Penicillins Allergy Unknown UNKNOWN Verified 01/27/25 18:21 procaine (From Novocain) Allergy Unknown Unknown Verified 01/27/25 18:21 Review of Systems Review of Systems: Yes all other systems are reviewed and are negative Constitutional: Constitutional: Denies fatigue and Denies fever(s) Cardiovascular: Cardiovascular: Denies chest pain Gastrointestinal: Gastrointestinal: Denies abdominal pain Genitourinary: Genitourinary: Reports dysuria Musculoskeletal: Musculoskeletal: Reports back pain, Reports arthralgias and Denies joint swelling Endocrine: Endocrine: Denies fatigue PMFSH Past Medical History Attestation statement: The following information was validated with the patient. Medical History Small jaw Thought disorder Schizophrenia Mood disorder Depression Osteoporosis Age-related macular degeneration GERD (gastroesophageal reflux disease) Seizures Cognitive developmental delay Surgical History History of esophagogastroduodenoscopy (EGD) Hx of lithotripsy Hx of cystoscopy Social History Social History Household Members Other:: resides in residential Patient Tobacco Use Status: Never used Tobacco Advance Directives: Yes Advance Directives on File: Yes Advance Directives Date on File: 01/27/25 Do you have a plan to hurt others: No Plan Physical Exam ED Vital Signs: Vital Signs - 24 hr 01/27/25 18:19 01/27/25 20:16 Temperature 97.2 F 97.6 F Pulse Rate 67 63 Respiratory Rate 14 14 Blood Pressure 141/64 H 184/74 H Pulse Oximetry 93 95 Oxygen Delivery Method Room Air Room Air BMI result Body Mass Index 36.4 Const Other: Alert, no sign of head trauma on exam Orientation/consciousness: oriented to person Neck Other: No midline tenderness Skin Other: Warm dry no rash Neuro General: oriented to person, no focal motor deficits and CN's II-XI intact bilaterally Extrem Other: Moves all extremities independently, no deformity Psych Other: Cooperative Course Course Course Narrative: RME, this is a rapid medical exam performed by Philip Bedoya please refer to primary provider for complete H&P- 74-year-old female presents for evaluation of a fall. She complains of knee pain, back pain in the pelvis pain. Plan for x-rays of the knees, pelvis and spine. We will get a CT scan of her brain and cervical spine. Knee Medical Decision Making Medical Decision Making [facility] Narrative: 74-year-old female with a history of schizophrenia, mood disorder, thought disorder, seizure disorder, cognitive impairment, developmental delay, with underlying gait instability, presents after fall at her residential. Per the patient, she was being assisted to the bathroom, lost her balance and fell forward. She fell onto her knees. She now complains of bilateral knee hip and back pain. There was no head strike there was no loss of consciousness. The patient does state she has dysuria. History limited secondary to the patient's cognitive impairment. Caregiver is able to corroborate her account of events that transpired prior to her arrival. Problem: Psychiatric illness, gait instability, cognitive impairment with developmental delay History: Per patient and her caregiver I have considered the following differential diagnoses: Fracture, dislocation, contusion, sprain, UTI, Plan: X-rays of bilateral knees, lumbar spine and pelvis ordered from triage. They also scanned her head and neck despite there was no head strike. In the patient is not on a blood thinner. All imaging is negative. Screening labs and urinalysis collected, unremarkable, no UTI. I have reviewed the following diagnostics: Labs: No leukocytosis, not anemic, no electrolyte abnormality, urine not infected CT brain:Impression: No acute intracranial process. Chronic changes as detailed. CT cervical spine: mpression: Multilevel degenerative changes without evidence of acute fracture or acute malalignment. X-ray knee: MPRESSION: Mild degenerative changes. No fracture or malalignment. X-ray lumbar spine:Impression: No definite acute fracture. Demineralization and degenerative change somewhat limit interpretation. X-ray knee: IMPRESSION: Mild degenerative changes. No fracture or malalignment. X-ray pelvis:MPRESSION: 1. No acute findings. 2. Civz-ge-ffkjvrut degenerative change. Differential Diagnosis Differential Diagnoses: The differential diagnosis associated with the presentation includes See medical decision-making Admission/Observation Consideration of admission/observation: Escalation of care including admission/observation considered Not applicable Lab Data MDM Lab Attestation statement: I reviewed the patient's lab results. 01/27/25 19:50 01/27/25 19:50 Labs: Lab Results 01/27/25 01/27/25 Range/Units 19:50 21:26 WBC 4.9 (4.8-10.8) X10*3/uL RBC 4.29 (4.20-5.50) X10*6/uL Hgb 12.8 (12.0-16.0) g/dl Hct 39.1 (37.0-47.0) % MCV 91.1 (80.0-98.0) fL MCH 29.8 (27.0-33.0) pg MCHC 32.7 (31.0-35.0) g/dl RDW 13.2 (11.0-16.0) % Plt Count 125 L (160-400) X10*3/uL MPV 10.6 (9.4-12.3) fL Immature Gran % (Auto) 0.2 (0.0-0.4) % Neut % (Auto) 55.7 (45-73) % Lymph % (Auto) 32.3 (20-40) % [place] % (Auto) 9.6 (2-11) % Eos % (Auto) 1.6 (0-4) % Baso % (Auto) 0.6 (0-2) % Lymph # (Auto) 1.6 (1.2-4.9) X10*3/uL [place] # (Auto) 0.5 (0.1-1.2) X10*3/uL Eos # (Auto) 0.1 (0.0-0.4) X10*3/uL Baso # (Auto) 0.0 (0.0-0.2) X10*3/uL Abs Immat Gran (auto) 0.01 (0.00-0.03) X10*3/uL Absolute Neuts (auto) 2.7 (2.0-8.3) x10*3/uL Absolute Nucleated RBC 0.000 (0.0-0.012) X10*3/uL Nucleated RBC % (auto) 0.0 (0.0-0.2) /100WBC Sodium 142 (135-145) mmol/L Potassium 4.4 (3.3-5.1) mmol/L Chloride 108 (96-108) mmol/L Carbon Dioxide 27 (22-29) mmol/L Anion Gap 11 L (12-20) BUN 20 H (9-16) mg/dL Creatinine 0.85 (0.5-1.4) mg/dL Estim Creat Clear Calc 52.9 Estimated GFR > 60 Random Glucose 106 (60-115) mg/dL Calcium 8.8 (8.4-10.2) mg/dL Total Bilirubin 0.3 (0.0-1.0) mg/dL AST 40 H (5-31) U/L ALT 44 H (0-31) U/L Alkaline Phosphatase 113 (39-117) U/L Total Protein 6.9 (6.5-8.0) g/dL Albumin 4.2 (3.5-5.0) g/dL Urine Color Yellow Urine Appearance Clear Urine pH 7.0 (5.0-9.0) Ur Specific [place] <= 1.005 (1.005-1.025) Urine Protein Negative (Neg-Trace) mg/dL Urine Glucose (UA) Negative (Negative) mg/dL Urine Ketones Negative (Negative) mg/dL Urine Blood Negative (Negative) Urine Nitrite Negative (Negative) Ur Leukocyte Esterase Trace H (Negative) Urine RBC 0-2 (0-2) /HPF Urine WBC 0-5 (0-5) /HPF Ur Squamous Epith Cells 0-2 (0-2) /HPF Urine Bacteria None Seen (None Seen) Hyaline Casts 0-2 (0-2) /LPF Radiology Impression Discussion of test interpretation with radiology: I have reviewed the radiologist's reading. Discharge Plan Discharge Clinical Impression: Fall at home Patient Disposition: Home, Self-Care Additional Instructions: All of your screening labs were normal your urine is not infected. CT scan of the brain and cervical spine were obtained, there was no acute injury. X-rays of bilateral knees, the lumbar spine and pelvis were obtained, there were no acute injuries, the patient was noted to have arthritis. Follow up with your primary care provider as needed. Prescriptions: No Action carbamazepine [Tegretol XR] 100 mg tablet extended release 12 hr 100 mg PO BID Qty: 180 0RF primidone [Mysoline] 250 mg tablet 250 mg PO BID Qty: 180 0RF multivitamin Tablet 1 tab PO DAILY ziprasidone HCl [Geodon] 80 mg Capsule 80 mg PO BID Rx Instructions: give with food (meal/snack) cetirizine [Zyrtec] 10 mg Tablet 10 mg PO DAILY citalopram [Celexa] 10 mg Tablet 12.5 mg PO DAILY Rx Instructions: takes 1 full tablet and 1/4 tablet to equal 12.5 mg alendronate 70 mg tablet 70 mg PO QWEEK Robitussin DM Max 10-200 mg/5 mL Liquid 7.5 ml PO Q4-6H PRN (Reason: Cough) acetaminophen 500 mg Tablet 500 mg PO Q8H PRN (Reason: Pain) carbamazepine [Tegretol XR] 200 mg Tablet Extended Release 12 Hr 200 mg PO BID docusate sodium [Colace] 100 mg Capsule 100 mg PO BEDTIME oxybutynin chloride [Ditropan] 5 mg Tablet 5 mg PO BID fluticasone propionate [Flonase] 50 mcg/actuation Opal,Suspension 1 spray INTRANASAL DAILY Rx Instructions: administer into each nostril PreserVision AREDS-2 250-90-40-1 mg Capsule 1 tab PO BID psyllium husk [Reguloid (psyllium husk)] 0.4 gram Capsule 0.4 g PO BEDTIME Stand Alone Forms: Work/School Release Discharge Date/Time: 01/28/25 00:12 Print Language: Eritrean
[2025-01-27 19:59] LABS: MANUAL DIFF FLAG NO
[2025-01-27 20:01] LABS: Hemoglobin 12.8 g/dl (12.0-16.0); Imm Gran Abs Auto 0.01 X10*3/uL (0.00-0.03); Imm Gran Pct Auto 0.2 % (0.0-0.4); NRBC Abs Auto 0.000 X10*3/uL (0.0-0.012); NRBC Pct Auto 0.0 /100WBC (0.0-0.2); PLT CLUMP 1; SCAN SMEAR FLAG 1
[2025-01-27 20:03] LABS: Hematocrit 39.1 % (37.0-47.0); Lymphocytes Absolute Auto 1.6 X10*3/uL (1.2-4.9); Mean Corpuscular HGB Conc 32.7 g/dl (31.0-35.0); Mean Corpuscular Hemoglobin 29.8 pg (27.0-33.0); Mean Corpuscular Volume 91.1 fL (80.0-98.0); Platelet Count 125 X10*3/uL (160-400); Red Blood Count 4.29 X10*6/uL (4.20-5.50); White Blood Count 4.9 X10*3/uL (4.8-10.8)
[2025-01-27 20:16] VITALS: BP 184/74; PULSE 63; RESP 14; TEMP 36.4; O2SAT 95
[2025-01-27 20:16] LABS: Alanine Aminotransferase 44 U/L (0-31); Albumin Level 4.2 g/dL (3.5-5.0); Alkaline Phosphatase 113 U/L (39-117); Anion Gap 11 (12-20); Aspartate Amino Transferase 40 U/L (5-31); Blood Urea Nitrogen 20 mg/dL (9-16); Calcium 8.8 mg/dL (8.4-10.2); Carbon Dioxide 27 mmol/L (22-29); Chloride 108 mmol/L (96-108); Creatinine Clr Calc Pharmacy 52.9; Estimated Glomerular Filt Rate > 60; Potassium 4.4 mmol/L (3.3-5.1); Sodium 142 mmol/L (135-145); Total Protein 6.9 g/dL (6.5-8.0)
[2025-01-27 21:36] LABS: Appearance Urine Clear; Glucose Urine UA Negative (Negative); PH 7.0 (5.0-9.0); Specific Gravity - Urine <= 1.005 (1.005-1.025); UMIC TRIGGER UACC YES
--- OUTSIDE RECORDS SUMMARY | 2025-01-27 21:48 | XMS_ITS | Data Portability ---
Author Organization [place] - [facility], Allergy Address [address] [address] Care Team Providers Care Insurance Auditor Name Role Phone ANTONIO JOHNSON Primary Care Provider Assessment Encounter Date Assessment Date Assessment LastModified by Organization Details LastModified Time 11/22/2023 11/22/2023 Recommendations: Follow up with referring provider. [email or web address] Not available 11/22/2023 10:27:16 11/22/2023 11/22/2023 Impacted [...] Debrox 6.5 % ear drops 024 024 [facility] [place], [address] [place], [address], 4 11:19:53 Patient TargetsNo targets recorded. Patient [...] Name and Address Organization Details Recorded Time Infectiv e otitis externa of right ear [id number] 23510 Completed 201611/09/2023 Other infectiv e otitis externa, right ear; Note: Date Diagnose d: 04/14/2016 9:52 AM (H60.391 ) Not Available [facility] 4 03:08:17 Otorrhea of right ear [id number] 50969 Completed 201611/09/2023 Otorrhea , right ear; Note: Date Diagnose d: 04/14/2016 9:52 AM (H92.11) Not Available [facility] 4 03:08:18 Impacted cerumen in left ear [id number] 12633 Active 2016 Impacted cerumen, left ear; Note: Date Diagnose d: 04/17/2016 9:28 AM (H61.22) Not Available [facility] 4 03:08:18 Benign neoplasm of skin of right ear [id number] 37582 Completed 201611/09/2023 Other benign neoplasm of skin of right ear and external auricula r canal; Note: Date Diagnose d: 7 2:35 PM (D23.21) Not Available [facility] 4 03:08:17 Impacted cerumen of bilatera l ears 60959504046 56376 Active 2023 AMY WHITAKER MD [address] [place] [address], [place], [address] , [facility] - [facility] 4 11:17:19 Sensorin eural hearing loss of bilatera l ears 008562460 Active 2023 AMY WHITAKER MD [address] [place] [address], [place], [address] , [facility] - [facility] 4 11:17:24 Impacted cerumen in right ear 16570786349 96843 Active 2023 Savannah patel [place] - [facility] 4 09:57:47 Problem Notes None recorded. Procedures Surgical History Date Name Laterality Status Provider Name and Address Organization Details Recorded Time 11/22/19 24 Tympanometry - 29619 completed DEANNA POSEY, AuD [address], [place], [address], [facility] - [facility] 11/22/2023 10:27:39 11/22/19 24 Air & Bone Audio - 30186 completed DEANNA POSEY, AuD [address], [place], [address], [facility] - [facility] 11/22/2023 10:27:35 11/22/19 24 SRT/SAT - 67905 completed DEANNA POSEY, AuD [address] [facility] [address] [facility] [address], [place], [address], [facility] - [facility] 11/22/2023 10:27:45 11/22/19 24 Cerumen removal without microscope right completed Savannah Chow [facility] 11/22/2023 10:21:24 10/18/19 24 Cerumen removal with microscope bilateral completed AMY WHITAKER MD [address] [facility] [address], [place], [address], [facility] 10/18/2023 11:17:11 Imaging Results None recorded. Procedure Notes None recorded. Medical Equipment None Reported. Allergies Allergen ID Allergen Name Allergen Category Reaction Reaction Severity Criticality Documentation Date Start Date Code Code System Note Provider Name and Address Organization Details Recorded Time 048685 Product containin g penicilli n (product) medicatio n other Not available Not available 08/21/2023 36235 8001 SNOMED React ion: unkno wn, unspe cifie d;; Not Available [facility] 4 01:23:19 Medications Name Sig Start Date Stop [...] tablet,ext ended release 2016 active Medication ID: [id number] Bra nd Name: Ditamraopan XL Send Method: E-Prescrib ed Subs Allowed: subs OK Medicat ionGeneric Name: Ditamraopan XL Not Available Not Available Not Available [...] Tegretol 200 mg tablet active Medication ID: [id number] Bra ok Name: Tegretol S end Method: E-Prescrib ed [...] ension 4 drop 2016 active Medication ID: [id number] Dur ation Value: 14 Prescribe d By [...] No t Available Celexa active Medication ID: [id number] Bra nd Name: iliaexharini Sen d Method: E-Prescrib ed Subs Allowed: [...] Diagnosis SNOMED-CT Code Diagnosis ICD10 Code Diagnosis IMO Codes Diagnosis Note [id number] MAY WHITAKER MD [facility] on [address] [place] [address] 10/18/2023 10:20:33 10/18/2023 11:23:28 Impacted cerumen of bilateral ears [id number] 943950 H61.23 Cerumen removed AU but incomplete ly AD. Use debrox and return for ear cleaning then audio. Sensorineu ral hearing loss of bilateral ears [id number] H90.3 suspected [id number] SAVANNAH CHOW PA-C [facility] on [address] [place] [phone] 11/22/2023 09:27:38 11/22/2023 10:33:58 Impacted cerumen in right ear [id number] 700214 H61.21 Sensorineu ral hearing loss of bilateral ears 658180167 H90.3 [id number] Rodney ELLIS [facility] on [address] [place] [phone] 11/22/2023 10:27:06 11/22/2023 10:33:43 Sensorineural hearing loss of bilateral ears 434014416 H90.3 Audiologic al evaluation results:Ri ght ear:Normal sloping to moderately severe sensorineu ral hearing loss with.Left ear:Normal sloping to moderately severe sensorineu ral hearing loss with . Tympanomet ry:Right Ear:Type ALeft Ear:Type A Health Concerns Section Related Observation LastModified by Organization Detai ls LastModified Time None Recorded Concern Status LastModified by Organization Details LastModified Time None Recorded Advance Directives Directive None Recorded Payers Insurance Date Sequence Insurance Name Policy Number Policy Escamilla Covered Member ID Escamilla Member ID Guarantor Name 11/19/2023 2 [place] Yahaira Bestogh [id number] Yahaira Alcaraz [facility] 11/19/2023 1 [place] [employer] Yahaira Alcaraz [employer]uma [id number] Yahaira Bestogh Notes Date Note Type Note Provider Name and Address Organization Details Recorded Time 10/18/2023 text/html ROS as noted in the HPI Presents for hearing evaluation. Has cerumen impactions. AMY WHITAKER MD [address], [address], [facility] 10/18/2023 11:18:35 11/22/2023 text/html ROS as noted in the HPI 72 year old female with developmental delay presents with her compensation administrator to complete cerumen debridement and an audiogram.No new concerns today. Savannah patel [facility] 11/22/2023 10:21:52 11/22/2023 text/html Audiological Evaluation HPIReported by PatientHearing LossFor hearing loss perceived, patient reportsnone (no loss of audibility).Tinnitus For tinnitus reported, patient reportsnone.Dizzines sFor balance symptoms reported, patient reportsno report of dizziness. Rodney ELLIS [address] [facility],[address], [address], [facility] 11/22/2023 10:28:55 OBGyn Episode No OBEpisode recorded.
--- OUTSIDE RECORDS SUMMARY | 2025-01-27 21:48 | XMS_ITS | Patient Health Record ---
Author Organization [facility] Address [address] [place] [address] Care Team Providers Care Spindle Sander Name Role Phone Chester Avila Jr Reason For Referral No Information Plan Of Treatment No Information
--- OUTSIDE RECORDS SUMMARY | 2025-01-27 21:48 | XMS_ITS | Data Portability ---
Author Organization [place] [facility] Address [address] [place] [id number] Care Team Providers Care Explosives Truck Driver Name Role Phone ANTONIO JOHNSON Primary Care Provider Assessment Encounter Date Assessment Date Assessment LastModified by Organization Details LastModified Time 08/12/2018 08/12/2018 Overview/History : 67 yo female resident of [facility]; she has PMH of seizures and arthritis and presents with complain of right knee pain after a fall 2h ago. Staff reports that patient lost her balance while getting up from the toilet; they report that patient was supervised at that that time and was caught by the staff member and assisted to the floor without sustaining any injuries or hitting any parts of her body. Patient, however, started complaining of right knee pain shortly after a fall which triggered evaluation by DH provider. Patient reports 6/10 pain in her right knee and reports that pain is bad enough to prevent her from walking. Patient denied back pain, numbness or tingling in her lower extremities, swelling, bruising, open wounds. Also denied dizziness or LOC. Exam: Well appearing female with developmental disabilities, no acute distress, non-toxic appearance; she is alert and oriented at baseline; refuses to ambulate stating that her knee hurts. Head is normocephalic and atraumatic No mid-line tenderness of the cervical spine. Normal range of motion heart sounds are regular rate and rhythm. No murmurs, rubs or gallops. Normal peripheral perfusion. Lungs clear to auscultation; No respiratory distress; No wheezing, rhonchi, or rales. No chest wall tenderness No midline tenderness of the thoracic or lumbar spine. No paraspinal tenderness. No external signs of trauma. extremities with good range of motion of all major joints. Patient reports pain with right knee movement, however has a full ROM in that knee. No deformities, tenderness, erythema or swelling. Distal neurovascular function intact with brisk capillary refill. Posterior/anterior drawer, valgus/varus stress, Lamin tests all negative. DDx considered, but not limited to: arthritis knee contusion knee sprain Work up/Results: none Plan/Discussion: - no evidence of significant knee trauma on physical exam; no significant mechanism of injury - Toradol 30mg IM once given on scene for pain - advised ice 20min on/off and rest the joint; may apply heat 20min on/off in 24h; gentle stretches and exercises advised; - may take Tylenol and ibuprofen PRN for pain - follow up with PCP in 5-7 days if symptoms persist; may recommend PT if symptoms do not resolve - advised ED for imaging if symptoms worsen within 24h - patient expressed understanding and agreed to treatment plan In order to obtain further information and compare any laboratory results/values, I have accessed patient records on the [employer]. This information was pertinent in my medical decision making today. Time On Scene with Patient: 00:32:34 [email or web address] Not available 08/12/2018 22:33:39 09/19/2019 09/19/2019 Overview/History : 68 yo female resident of the [facility], known to and this provider who presents for evaluation of the abrasion noted on her right lower extremities 2 days ago. Neither patient nor facility staff know the origin of the abrasion. Patient reports pain at the site of the abrasion comorbidities: seizures, arthritis, developmental disability Exam: well appearing, no acute distress, non-toxic appearance; alert and oriented at baseline; ambulates with a walker Heart sounds are regular rate and rhythm; no audible murmurs, rubs, or gallops No signs of respiratory distress. Lungs are clear to auscultation in all fileds Good range of motion of all major joints. No edema, erythema or cyanosis of lower extremities. Superficial skin abrasion approximately [id number]; no surrounding edema, erythema, warmth or discharge appreciated DDx considered, but not limited to: skin abrasion cellulitis - unlikely; no signs of infection on exam Work up/Results: none Plan/Discussion: - abrasion site was cleaned, applied bacitracin and clean dressing - instructed fci staff on wound care; monitor for signs of infection - follow up with PCP as needed within 3-5 days or sooner if symptoms worsen or do not improve - advised when to seek immediate medical attention/911/ED - patient and staff expressed understanding and agreed to tx plan In order to obtain further information and compare any laboratory results/values, I have accessed old patient records. This information was pertinent in my medical decision making today. Proper Personal Protective Equipment (PPE), including gloves, eye protection and masks were donned and doffed appropriately and all equipment cleaned using approved technique with germicidal disposable wipes prior to and after care of this patient according to [facility]'s infection prevention protocols. Time on-scene represents total face to face time with patient. More than 50% of the visit was spent in counseling/coordin ation of the patient's care. Topics discussed include: Diagnostic results and impressions, instructions for management/plan, follow up care/referrals and patient and/or family education. Staff was not able to provide needed paperwork in timely manner which caused a significant delay. Time On Scene with Patient: 00:50:17 [email or web address] Not available 09/19/2019 16:49:03 10/17/2019 10/17/2019 Overview/History :Rashad sim is a 68-year-old female that is known to [facility] but new to this provider. She was walking with her walker in the hallway last night and hit her toe into molding and fell. She has been having pain in her right great toe ever since. She has some swelling to the area and was unable to get up out of her chair today because she cannot bear weight to the discomfort. She took 1 dose of Tylenol last night but has not requested any more analgesia and has done no other interventions for her toe. Exam: On exam patient is awake and alert, she seems to be in good spirits. She is afebrile. Her blood pressure is little on the soft side compared to when [facility] saw her last. prison staff brought me documents from her most recent PCP visit and she has had lower blood pressure at the past couple of visits. Patient is very bright. She is describing pain 10/10 but does not appear to be in any acute distress. She has swelling noted around her right great toe extending down into the ball of her foot. She is able to weakly flex and dorsiflex the right great toe but her range of motion is limited due to the inflammation. Bruising just to the side of the toenail as well as in the crease on the plantar aspect of her foot. Normal range of motion of bilateral ankles. DDx considered, but not limited to:Acute fracture of the toe is possible given the trauma. Swelling could be due to inflammation due to musculoskeletal injury. No redness or warmth to suggest cellulitis. Work up/Results:X-ray of the right foot pending. Plan/Discussion:I discussed with the patient as well as fci staff that I will be arranging for mobile imaging to evaluate for acute fracture. In the meantime I have asked that she keep the foot elevated. I have also suggested she apply ice packs for 20 minutes at a time to help with pain and swelling. She can continue to take Tylenol as needed for pain. I would also like her to take ibuprofen 600 mg every 8 hours as the anti-inflammatory effect might give her better pain relief. If toe had become more discolored her pain very severe she may need evaluation in the emergency department. The patient verbalized understanding of discharge instructions. In order to obtain further information and compare any laboratory results/values, I have accessed old patient records. This information was pertinent in my medical decision making today. Time On Scene with Patient: 00:29:32 [email or web address] Not available 10/17/2019 15:41:51 12/02/2019 12/02/2019 Overview/History : 68yo F established with is seen for a small burn on her chest. Patient accidentally dropped hit spinach on her chest 11/26/2019. No fever. No increase in redness. Patient has been fixating on the burn. no change in baseline mental status. Exam: VSS Patient healthy appearing heart and lung sounds clear jesu and 2 dime size scabs to anterior chest without surrounding redness or fluid collection. DDx considered, but not limited to: superficial burn no signs of infection I do not suspect an intentional burn Work up/Results: none at this time Plan/Discussion: Patient is hemodynamically stable non toxic appearing with healing anterior chest ochoa. Bacitracin applied. Facility to use bacitracin as needed. Instructed the patient not to pick at the area and to again seek medical care if she develops worsened redness or pain. Patient and staff verbalized understanding and were agreeable with overall plan. Proper Personal Protective Equipment (PPE), including surgical mask with face-shield, gloves were donned and doffed appropriately and all equipment cleaned using approved technique with germicidal disposable wipes prior to and after care of this patient according to [facility]'s infection prevention protocols. In order to obtain further information and compare any laboratory results/values, I have accessed old patient records. This information was pertinent in my medical decision making today. Time On Scene with Patient: 00:08:08 [email or web address] Not available 12/02/2019 20:05:21 Plan of Treatment Reminders Order Date Submit Date Provider Last Modified By Organization Details Last Modified Time Details Appointments None recorded. Lab None recorded. Referral None recorded. Procedures None recorded. Surgeries None recorded. Imaging XR, foot, 3 or more view 2019 [email or web address] [facility] ([facility] [address] [place] [address], [place], [address], 0 14:30:03 Medication Orders ibuprofen 200 mg tablet 2019 020 ATHENAFAX [facility]armacy #[id number], [address] [facility] [place], [address], 0 15:20:18 bacitraci n 500 unit/gram topical ointment 2019 020 INTERFACE [facility], [address] [place], [address], 0 16:04:14 lidocaine -aloe vera 0.5 % topical gel 2019 020 [email or web address] [facility], [address] [place], [address], 0 17:48:29 ketorolac 30 mg/mL (1 mL) injection solution 2018 019 [email or web address] Not available 9 08:07:06 ibuprofen 600 mg tablet 2018 019 INTERFACE [facility], [address] [place], [address], 9 19:47:05 Patient TargetsNo targets recorded. Patient Instructions Encounter Date Encounter Id Patient Instructions Last Modified By Organization Details Last Modified Time 08/12/2018 [id number] YOU WERE SEEN FO R KNEE PAIN AFTER A FALL TODAY. YOU WERE GIVEN MEDICATIONS FOR PAIN WHILE AT YOUR HOME. PRESCRIPTION FOR IBUPROFEN WAS SENT TO THE PHARMACY. You may take acetaminophen (Tylenol) 650mg every 6 hrs for pain or fever not to exceed 3000mg in 24 hrs. You may alternate with Ibuprofen (Advil)600mg every 6 hrs not to exceed 2400mg in 24 hrs. APPLY ICE AND REST YOUR KNEE FOR A FEW DAYS. YOU MAY START APPLYING HEAT 20MIN ON/OFF FOR COMFORT AND HELP WITH PAIN IF YOUR SYMPTOMS WORSEN TOMORROW PLEASE CONSIDER GOING TO THE HOSPITAL FOR XRAYS SEEK IMMEDIATE MEDICAL ATTENTION OR CALL 911 IF YOUR SYMPTOMS WORSEN OR IF YOU DEVELOP ANY NEW CONCERNING SYMPTOMS. Thank you for your visit with [facility] today. We cannot always find the exact cause of your symptoms during your initial visit. Please follow up with your primary care provider or specialist as needed to be rechecked or seek medical attention if your symptoms do not go away or get worse. If you develop any new or worsening symptoms and need after hours care, please go to nearest ER and/or call 911. If you have additional concerns or develop a change in your condition between 8am-10pm, please call [facility] at [phone] to help navigate your care. Thank you for your visit with [facility] today. We cannot always find the exact cause of your symptoms during your initial visit. Please follow up with your primary care provider or specialist to be rechecked or seek medical attention if your symptoms do not go away or get worse. If you develop any new or worsening symptoms and need after hours care, please go to nearest ER and/or call 911. If you have additional concerns or develop a change in your condition between 8am-10pm, please call [facility] at [phone] to help navigate your care. [email or web address] Not available 08/12/2018 20:32:04 09/19/2019 [id number] wound care* [email or web address] Not available 03/2020 16:02:34 Thank you for yo ur visit with [facility] today. You were seen today for treatment of a wound. Please seek immediate medical attention if you develop increased pain, redness, or swelling of your wound. Also, you should be evaluated if the wound becomes warm to the touch, or if there is a cloudy, yellow-brown discharge from the wound. There is always the possibility of a hidden tendon injury or foreign object in the wound. If you have problems moving your arm or leg, or if you see red streaks up the arm or leg, seek immediate medical attention. If you develop any new or worsening symptoms and need after hours care, please go to nearest ER and/or call 911. If you have additional concerns or develop a change in your condition between 8am-10pm, please call [facility] at [phone] to help navigate your care. [email or web address] Not available 09/19/2019 15:37:06 10/17/[id number] WE CAME TO SEE [facility] TODAY FOR CONCERNS OF REIGHT GREAT TOE PAIN AFTER A FALL. YOU DO HAVE SWELLING IN THIS AREA AND SOME DECREASED MOTION WELL BRUISING. WE WILL ARRANGE FOR AN XRAY TO BE TAKEN TO SEE IF THERE IS ANY FRACTURE IN THE FOOT, IF SO THEN YOU WILL NEED TO SEE ORTHOPEDICS. PLEASE APPLY ICE PACKS 20 MINS ON NEEDED FOR COMFORT AND TO REDUCE SWELLING. PLEASE KEEP THE AREA ELEVATED. YOU CAN TAKE TYLENOL NEEDED FOR PAIN. I WOULD LIKE YOU TO TAKE [id number] EVERY 8 HOURS FOR THE NEXT WEEK TO HELP WITH INFLAMMATION. Thank you for your visit with [facility] today. We cannot always find the exact cause of your symptoms during your initial visit. Please follow up with your primary care provider or specialist to be rechecked or seek medical attention if your symptoms do not go away or get worse. If you develop any new or worsening symptoms and need after hours care, please go to nearest ER and/or call 911. If you have additional concerns or develop a change in your condition between 8am-10pm, please call [facility] at [phone] to help navigate your care. Thank you for your visit with [facility] today. You do not appear to have a fracture or dislocation that requires immediate surgical intervention. However, small breaks or ligament tears may not be obvious on initial examination. Given this concern, we may have placed you in a temporary splint. If an xray is indicated, we will help direct you to the best option to obtain your imaging study. We have also given you follow up directions. Please follow up with your primary care physician or specialist as directed. If you develop any new or worsening symptoms and need after hours care, please go to nearest ER and/or call 911. If you have additional concerns or develop a change in your condition between 8am-10pm, please call [facility] at [phone] to help navigate your care. [email or web address] Not available 10/17/2019 15:16:00 12/02/2019 [id number] THE PATIENT HAS A BURN THAT IS HEALING WELL THERE ARE NO SIGNS OF INFECTION AT THIS TIME NO MEDICATION IS NEEDED IF THE AREA BECOMES MORE RED OR IS CAUSING MORE PAIN FEEL FREE TO CALL US TRY TO DETER THE PATIENT FROM PICKING AT THE AREA Thank you for your visit with [facility] today. We cannot always find the exact cause of your symptoms during your initial visit. Please follow up with your primary care provider or specialist as needed to be rechecked or seek medical attention if your symptoms do not go away or get worse. If you develop any new or worsening symptoms and need after hours care, please go to nearest ER and/or call 911. If you have additional concerns or develop a change in your condition between 8am-10pm, please call [facility] at [phone] to help navigate your care. [email or web address] Not available 12/09/2019 13:18:34 Reason for Referral None Reported. Results Created Date Observation Date Name Description Value Unit Range Abnormal Flag Note LastModifiedBy Organization Detail LastModifiedTime 10/18/19 20 10/18/2019 foot compl ete, min 3V FOOT COMPLE TE, MIN 3V, RIGHT FINDIN GS: No acute fractu re, disloc ation or destru ctive bony proces s. No soft tissue abnorm ality. Osteop enia. Mild degene rative change s of the toes and mid foot. Consid er follow up or CT as clinic renita jacome. CONCLU RIA: No acute osseou s abnorm ality. ELECTR ONICAL LY SIGNED BY ANTHONY SPRINGER M.D. 020 2:01:5 9 PM EDT. FOOT COMPLE TE, MIN 3V, RIGHT Result s: No acute fractu re, disloc ation or destru ctive bony proces s. No soft tissue abnorm ality. Osteop enia. Mild degene rative change s of the toes and mid foot. Consid er follow up or CT as clinic renita jacome. Conclu ria: No acute osseou s abnorm ality. Electr onical ly signed by ANTHONY SPRINGER M.D. 020 2:01:5 9 PM EDT. [facility] ([facility]) [address], [place], [address], 10/20/2019 12:18:15 Result Notes None recorded. Medical Equipment None Reported. Allergies Allergen ID Allergen Name Allergen Category Reaction Reaction Severity Criticality Documentation Date Start Date Code Code System Note Provider Name and Address Organization Details Recorded Time 33488 Product containin g penicilli n (product) medicatio n Not available Not available Not available 08/12/2018 19114 8001 SNOMED DEM[place] ESQUIVEL [address] [place], [address], [place] - [facility] 9 19:21:34 Medications Name Sig Start Date Stop Date Status Note LastModified by Organization Details LastModified Time ziprasidone 80 mg capsule active Not Available Not Available Not Available ibuprofen 800 mg tablet 08/12 completed Not Available Not Available Not Available citalopram 10 mg tablet active Not Available Not Available Not Available ibuprofen 200 mg capsule TAKE 3 CAPSULES BY MOUTH EVERY 6 TO 8 HOURS FOR 7 DAYS active Not Available Not Available No t Available alendronate 70 mg tablet active Not Available Not Available Not Available Generlac 10 gram/15 mL oral solution active Not Available Not Available Not Available clindamycin HCl 150 mg capsule 08/12 completed Not Available Not Available Not Available bacitracin 500 unit/gram topical ointment Apply 1 applicati on 3 times a day by topical route for 10 days. 2019 active Not Available Not Available Not Avai lable doxycycline monohydrate 100 mg tablet 08/12 completed Not Available Not Available Not Available triamcinolo ne acetonide 0.1 % topical cream active Not Available Not Available Not Available ketorolac 30 mg/mL (1 mL) injection solution 30 mg IM administe red on scene. Time administe red: 1942018 active Not Available Not Available Not Avai lable carbamazepi ne 200 mg tablet active Not Available Not Available Not Available primidone 250 mg tablet active Not Available Not Available Not Available oseltamivir 75 mg capsule 08/12 completed Not Available Not Available Not Available lidocaine-a nena vera 0.5 % topical gel Apply 1 applicati on 4 times a day by topical route as needed. 2019 active Not Available Not Available Not Avai lable ranitidine 150 mg tablet active Not Available Not Available Not Available carbamazepi ne 100 mg chewable tablet active Not Available Not Available Not Available ibuprofen 200 mg tablet Take 3 tablets every 6-8 hours by oral route for 7 days. 2019 active Not Available Not Available Not Avai lable oxybutynin chloride ER 5 mg tablet,exte nded release 24 hr active Not Available Not Available Not Available hydrocortis one 2.5 % topical cream active Not Available Not Available Not Available ibuprofen 600 mg tablet Take 1 tablet every 6-8 hours by oral route as needed for 5 days. active Not Available Not Available No t Available ketoconazol e 2 % topical cream active Not Available Not Available Not Available oxybutynin chloride 5 mg tablet active Not Available Not Available No t Available fluticasone propionate 50 mcg/actuati on nasal spray,suspe nsion active Not Available Not Available Not Available doxycycline hyclate 100 mg tablet 08/12 completed Not Available Not Available Not Available Ventolin HFA 90 mcg/actuati on aerosol inhaler active Not Available Not Available Not Available [facility] 100,000 unit/gram topical powder active Not Available Not Available Not Available chlorhexidi ne gluconate 0.12 % mouthwash active Not Available Not Available No t Available Vitals Date Recorded Heart rate Respiratory rate Oxygen saturation Oxygen saturation in Arterial blood by Pulse oximetry Systolic And Diastolic Provider Name and Address Organization Details Last Updated DateTime 9 68 /min 18 /min 96 % 96 % 132/74 mm[Hg] Not Available [facility] 9 19:22:38 Date Recorded Heart rate Body temperature Respiratory rate Oxygen saturation Oxygen saturation in Arterial blood by Pulse oximetry Systolic And Diastolic Provider Name and Address Organization Details Last Updated DateTime 0 64 /min 98 [degF] 16 /min 95 % 95 % 128/84 mm[Hg] Not Available [facility] 0 15:51:47 Date Recorded Oxygen saturation Oxygen saturation in Arterial blood by Pulse oximetry Heart rate Respiratory rate Body temperature Systolic And Diastolic Systolic And Diastolic Provider Name and Address Organization Details Last Updated DateTime 0 91 % 91 % 60 /min 22 /min 98.1 [degF] 88/56 mm[Hg] 98/58 mm[Hg] Not Available [facility] 0 15:04:44 Date Recorded Heart rate Body temperature Oxygen saturation Oxygen saturation in Arterial blood by Pulse oximetry Respiratory rate Systolic And Diastolic Provider Name and Address Organization Details Last Updated DateTime 0 60 /min 97.9 [degF] 95 % 95 % 16 /min 106/62 mm[Hg] Not Available [facility] 0 19:47:00 Social History Question Answer Notes LastModified by Organizat ion Details LastModified Time Tobacco Smoking Status Never Smoker DEMIAN ESQUIVEL [address] [place] [address] [place], [address], [place] - [facility] 08/12/2018 22:33:54 Do You Have An Advance Directive? Yes Information not available 08/12/2018 What Is Your Code Status? Full Code Information not available 08/12/2018 How Many Days In The Past Year Have You Had A Heavy Drinking Consumption (4+ Female, 5+ Male)? 0 Information not available 08/12/2018 Within The Past 12 Months, Has It Happened That The Food You Bought Just Didn't Last And You Didn't Have Money To Get More. Normal Information not available 08/12/2018 Within The Past 12 Months, Have You Worried That Your Food Would Run Out Before You Got Money To Buy More. Yes Information not available 08/12/2018 Fall Risk: Do You Feel Unsteady When Standing Or Walking? Yes Information not available 08/12/2018 Marital Status [facility] n not available 08/12/2018 What Was The Date Of Your Most Recent Tobacco Screening? 08/12/2018 Information not available 10/31/2018 Sex: Unknown Functional Status None recorded. Mental Status None recorded. Family History Nothing Reported Notes:pt with developmental delay cannot answer this Medical History Condition Response Diabetes N Coronary Artery Disease N High Cholesterol N Pulmonary Embolism N Cancer N Hypertension N Stroke N Asthma N COPD N Depression N Kidney Disease N Gynecological HistoryNo gynecological history recorded. Obstetrics History GPAL:G 0 P 0 0 0 0 Past Encounters Encounter ID Performer Location Encounter Start Date Encounter Closed Date Diagnosis/Indication Diagnosis SNOMED-CT Code Diagnosis ICD10 Code Diagnosis IMO Codes Diagnosis Note [id number] DEMIAN ESQUIVEL [facility] [address] [place] [address] 08/12/2018 19:19:26 08/13/2018 15:22:40 Knee pain 91104345 M25.569 [id number] DEMIAN ESQUIVEL [facility] [address] [place] [address] 09/19/2019 15:35:39 10/02/2019 18:50:32 Abrasion of skin of lower limb [id number] S80.811A [id number] ARAM MAYS NP [facility] [address] [place] [address] 10/17/2019 14:58:00 10/22/2019 13:33:18 Pain in toe [id number] M79.674 [id number] DEMIAN OTERO [facility] [place] [facility] [address] [place] [address] 12/02/2019 19:36:37 12/02/2019 20:25:40 Epidermal burn of skin [id number] T14.8XXA Health Concerns Section Related Observation LastModified by Organization Detai ls LastModified Time None Recorded Concern Status LastModified by Organization Details LastModified Time None Recorded Advance Directives Directive Y: Payers Insurance Date Sequence Insurance Name Policy Number Policy Escamilla Covered Member ID Escamilla Member ID Guarantor Name 12/02/2019 1 [place] [facility] Yahaira Hendrix [id number] Yahaira Mckeonh 10/17/2019 1 [place] [facility] Yahaira Hendrix [id number] Yahaira Mckeonh 2019 2 [place] [facility] Yahaira Hendrix [id number] Yahaira Hendrix 10/17/2019 1 *SELF PAY* Yahaira Hendrix [id number] Yahaira Hendrix 10/17/2019 1 [place] [facility] Yahaira Hendrix [id number] Yahaira Hendrix Notes Date Note Type Note Provider Name and Address Organization Details Recorded Time 08/12/2018 text/html Ms. Hendrix is a 67 yo female [facility]; she is new to and this provider and presents with complain of right knee pain after a fall 2h ago. Staff reports that patient lost her balance while getting up from the toilet; they report that patient was supervised at that that time and was caught by the staff member and assisted to the floor without sustaining any injuries or hitting any parts of her body. Patient, however, started complaining of right knee pain shortly after a fall which triggered evaluation by provider.Patient reports 6/10 pain in her right knee and reports that pain is bad enough to prevent her from walking. Patient denied back pain, numbness or tingling in her lower extremities, swelling, bruising, open wounds. Also denied dizziness or LOC.Comorbidities: seizures, artritis. DEMIAN ESQUIVEL [address] [place], [address], [place] [facility] 08/12/2018 22:35:29 09/19/2019 text/html Mrs. Hendrix is a 68 yo female [facility] of the [facility], known to and this provider who presents for evaluation of the abrasion noted on her right lower extremities 2 days ago. Neither patient nor facility staff know the origin of the abrasion. Patient reports pain at the site of the abrasion DEMIAN ESQUIVEL [address] [place], [address], [place] [facility] 09/19/2019 16:49:10 10/17/2019 text/html General HPI Template - DHReported by Patient This is a 68-year-old female that is known to [facility] but new to this provider. She has a medical history significant for developmental delay, seizures and arthritis. [facility] was contacted today because the patient was walking to the bathroom yesterday with her walker and hit her toe on some moulding and fell. Staff did witness the fall and report that she did not hit her head. The patient has been reporting pain in her right great toe ever since. She is normally ambulatory with a walker but was unable to bear weight this morning because of the discomfort. Staff say that she never misses Raul and she was unwilling to get up to go to the dining room table today due to her discomfort. She took 1 dose of Tylenol last night but has not requested anymore Tylenol today. When the patient was asked what her pain level was she reported 01/16. ARAM MAYS NP [address], [place], [address], [place] [facility] 10/17/2019 17:43:26 12/02/2019 text/html 68yoF known to [facility] mental disability, is seen today for a burn on her chest. The patient was eating hot spinach on 11/26/19 and dropped some onto her chest. Patient reports continued pain. Staff report she keeps mentioning it and fixating on it. No fever. no increase in redness. DEMIAN OTERO [address], [place], [address], [place] [facility] 12/09/2019 13:18:39 OBGyn Episode No OBEpisode recorded.
--- OUTSIDE RECORDS SUMMARY | 2025-01-27 21:48 | XMS_ITS | Encounter Summary ---
Author Organization [facility] [place] [address] Care Team Providers Care Apprentice Painter Hand Name Role Phone Davy Rivera Primary Care Provider [phone] Reason for Visit * Reason Onset Date Comments faxed order 01/27/2025 [employer] [facility] - Safety Gait Belt Encounter Details Date Type Department Care Team (Late st Contact Info) Description 01/27/2025 Telephone Adult Medicine [address] [phone] Davy Rivera PA [address] [place] [phone] Social History Tobacco Use Types Packs/Day Years Used Date Smoking Tobacco: Never Smokeless Tobacco: Never Alcohol Use Standard Drinks/Week Comments No 0 (1 standard drink = 0.6 oz pur e alcohol) Housing Instability Answer Date Recorde d Are you worried that in the next 2 months you may not have stable housing? No 07/16/2024 Food Access & Nutrition Answer Date Rec orded Do you have access to a vari ety of food including fruits and vegetables? No 07/16/2024 Health Literacy Answer Date Recorded How often do you need to hav e someone help you when you read instructions, pamphlets, or other written material from your doctor or pharmacy? Never 07/16/2024 Caregiver: How often do you need to have someone help you when you read instructions, pamphlets, or other written material from your doctor or pharmacy? Not on file 07/16/2024 Financial Risk Answer Date Recorded How hard is it for you to pa y for the very basics like food, housing, medical care, and air conditioning / heating? Not very hard 07/16/2024 Transportation Answer Date Recorded Has the lack of transportati on kept you from meetings, work, or from getting things needed for daily living? No Has the lack of transportati on kept you from medical appointments or from getting medications? No 07/16/2024 Social Isolation Answer Date Recorded How often do you feel lonely or isolated from th ose around you? Never 07/16/2024 Food Risk Answer Date Recorded Within the past 12 months we worried whether our food would run out before we got money to buy more. Never true 07/16/2024 Within the past 12 months th e food we bought just didn't last and we didn't have money to get more. Never true 07/16/2024 Dependent Care Answer Date Recorded Do you need help finding or paying for care for your loved ones. For example, child welfare manager or elderly care for an older adult? No 07/16/2024 Education Answer Date Recorded Do you think completing more education or training, like finishing a GED, going to college, or learning a trade, would be helpful for you? N/A 07/16/2024 Employment and Income Answer Date Recor ded During the last four weeks, have you been actively looking for work? No 07/16/2024 Living Situation Answer Date Recorded What is your living situation? Unrecognized valu e 07/16/2024 Comments No Sex and Gender Information Value Date Recorded Sex Assigned at Not on file Legal Sex Female 9:12 PM EST Gender Identity Not on file Sexual Orientation Not on file documented as of this encounter Progress Notes * Luis Bacon - 01/27/2025 10:15 AM EDT [facility] protocol/supportive devices order for safety gait belt dated 01/26/25 received. Please sign/date and fax to [phone] documented in this encounter Plan of Treatment Upcoming Encounters Date Type Department Care Team (Late st Contact Info) Description 02/06/2025 11:15 AM EDT Office Visit Adult Medicine [address] [phone] Viviana Mishra PA [address] [place], [place] 02/10/2025 9:45 AM EST Office Visit Orthopedic Surgery - [place] [id number] [phone] Carlos Brown DPM [address] [address] 03/18/2025 11:00 AM EST Office Visit Adult [address] [phone] Davy Rivera PA [address] [place] [phone] documented as of this encounter Goals Goal Patient Goal Type Associated Problems Recent Progress Patient-Stated? Author STG's 5 visits General Yes Yvon Romero PT Note: Pt/caregivers will be Independent and compliant with initial HEP. Pt will report R thigh pain of no more than 3/10 on VAS during stand pivot transfers. (Met) here> General Yes Yvon Romero PT LTG's 10 visits General Yes Yvon Romero PT Note: Pt/caregivers will be Independent and compliant with final HEP. Pt will report R thigh pain of no more than 1/10 on VAS during stand pivot transfers. documented as of this encounter Visit Diagnoses Not on filedocumented in this encounter Additional Health Concerns Assessment Noted Time PHQ-9 Depression Total Score: 0 07/17/19 25 12:00 PM EDT A fall risk assessment has been complete d for the patient 07/16/2024 12:00 PM EDT documented as of this encounter Care Teams Apprentice Painter Hand Relationship Specialty Start Date End Date Davy Rivera PA [address] [place] [address] PCP - General Internal Medicine 04/29/20 documented as of this encounter
--- OUTSIDE RECORDS SUMMARY | 2025-01-27 21:48 | XMS_ITS | Clinical Summary ---
Author Organization [facility] Address [address] [place] [id number] Care Team Providers Care Seed Sales Manager Name Role Phone Davy Rivera PA-C Primary [...] 65 11/11/2020 2:28 PM EDT Temperature 36.3 C (97.3 F) 11/11/2020 2:28 PM EDT Respiratory Rate - - Oxygen Saturation 99% 11/11/2020 2:28 PM EDT Inhaled Oxygen Concentration - - Weight 82.6 kg (182 lb) 11/11/2020 2:28 PM EDT Height - - Body Mass Index - - Plan of Treatment Health Maintenance Due Date Last Done Comments Hepatitis C Screening 1950 COVID-19 Vaccine (#1) [birth year]06/1951 Depression Screening 1961 Preventative Health Evaluation 12/05/1967 Colon Cancer Screening (Colonoscopy) 1994 Shingrix-Zoster Vaccine (1 of 2) 12/05/1999 Fall Risk Assessment 2014 Osteoporosis Screening (DEXA Scan) 2014 DTap / Tdap / Td (2 - Td or Tdap) 10/15/2016 10/15/2006 RSV Adult > 60+ Yrs or (1 - 1-dose 75+ series) 2024 Influenza Vaccine (#1) 2024 8, 12/30/2015, 12/10/2014, Additional history exists Pneumococcal Vaccine Completed 10/12/2017, 07/04/19 17 Hepatitis B Vaccines Aged Out No long er eligible based on patient's age to complete this topic RSV Ped < 20 months Aged Out No longe r eligible based on patient's age to complete this topic Care Teams Seed Sales Manager Relationship Specialty Start Date End Date Davy Rivera, PAMarkC PCP - General Medical Services 11/11/20
--- OUTSIDE RECORDS SUMMARY | 2025-01-27 21:48 | XMS_ITS | Clinical Summary ---
Author Organization [address] [place] [address] [place] [phone] Phone Care Team Providers Care Mice Raiser Name Role Phone Davy Rivera Primary Care Provider [phone] Allergies Active Allergy Reactions Criticality Noted Date Comments Lidocaine 04/10/2005 Penicillins 07/14/2005 Medications carbamide peroxide (Ear Drops, carbamide peroxide,) 6.5 % otic solution INSTILL 5 DROPS INTO BOTH EARS 2 TIMES DAILY FOR 10 DAYS. TILT HEAD SO EAR BEING TREATED POINTS TOWARD CEILING. HOLD MEDICATION IN EAR USING PART OF A COTTON BALL. 4 Active carBAMazepine (TEGretol) 100 mg chewable tablet TAKE 2 TABLETS BY MOUTH 2 TIMES DAILY IN ADDITION TO CURRENT DOSE OF 100MG EXTENDED RELEASE TWICE DAILY LABS DUE KWAME 4 Active citalopram (CeleXA) 10 mg tablet Take 1-1/4 tablets daily 3 Active carBAMazepine XR (TEGretol XR) 100 mg 12 hr tablet TAKE 1 TABLET BY MOUTH TWICE DAILY. IN ADDITION TO 200MG TWICE DAILY. 3 Active vit A/vit C/vit E/zinc/copper (PRESERVISION AREDS ORAL) Take by mouth. Act lachelle ziprasidone (GEODON) 80 mg capsule Take 1 capsule by mouth 2 times daily (with meals). 1 Active hydrocortisone 2.5 % cream Apply topically to the affected area in the groin twice daily for one week, once daily for one week, and every other day for one week. Repeat course if the rash occurs again 30 g 3 4 Active furosemide (LASIX) 20 mg tablet Take 1 tablet (20 mg total) by mouth 1 (one) time each day if needed (leg swelling). 30 each 11 4 Active primidone (MYSOLINE) 250 mg tablet TAKE (1) TABLET BY MOUTH TWICE A DAY. 56 tablet 5 4 Active silver sulfADIAZINE (Silvadene) 1 % cream Apply topically 1 (one) time each day. 50 g 5 06/11/19 26 Active Reguloid, psyllium husk, 0.4 gram capsule TAKE 1 CAPSULE BY MOUTH DAILY IN PM 28 capsule 3 5 Active acetaminophen (TYLENOL) 500 mg tablet Take 2 tablets (1,000 mg total) by mouth every 8 (eight) hours if needed for moderate pain. 30 tablet 5 Active lidocaine 0.5% (SOLARCAINE) 0.5 % gel external gel Apply 1 application 4 times a day by topical route as needed. 0 Active dextromethorphan -guaiFENesin (ROBITUSSIN-DM) 10-100 mg/5 mL syrup Take 10 mL by mouth every 6 hours as needed for Other (cough). 200 mL 1 5 Active doxycycline (ADOXA) 100 mg tablet Take 1 tablet (100 mg total) by mouth 1 (one) time each day. 5 Active cefpodoxime (VANTIN) 200 mg tablet Take 1 tablet (200 mg total) by mouth 2 (two) times a day. 5 Active fluticasone propionate (FLONASE) 50 mcg/actuation nasal spray INSTILL 2 SPRAYS INTO EACH NOSTRIL ONCE DAILY. 16 g 5 5 Active multivitamin tablet TAKE (1) TABLET DAILY BY MOUTH IN THE MORNING. 28 tablet 3 5 Active oxyBUTYnin (DITROPAN) 5 mg tablet TAKE 1 TABLET BY MOUTH TWICE DAILY 56 tablet 3 5 Active docusate sodium (COLACE) 100 mg capsule TAKE (1) CAPSULE BY MOUTH DAILY 28 capsule 3 5 Active cetirizine (ZyrTEC) 10 mg tablet TAKE 1 TABLET BY MOUTH ONCE DAILY IN THE MORNING FOR COUGH & SEASONAL ALLERGIES. 28 tablet 3 5 Active meloxicam (MOBIC) 15 mg tablet TAKE 1 TABLET BY MOUTH ONCE DAILY 30 tablet 3 5 Active ketoconazole (NIZORAL) 2 % cream Apply to the rash in groin two times a day for 2 week. Repeat course if the rash reoccurs. 60 g 1 5 Active Active Problems Problem Noted Date Diagnosed Date Dilatation of thoracic aorta ([facility] V24) 12/10 Morbid obesity with BMI of 4 0.0-44.9, adult ([facility] V24, [facility] V28) 01/29/2024 Fatty liver 11/12/2023 Airway problem 03/27/2019 Overview [...] update Moderate intellectual disability 04/07/2005 Seizure disorder ([facility] V24, [facility] V28) 03/11 Encounters Date Type Department Care Team Description 01/27/2025 Telephone Adult Medicine [address] [phone] Davy Rivera PA 01/22/2025 Telephone Adult [address] [phone] Davy Rivera PA 12/09/2024 1:30 PM EDT Ancillary Procedure [facility] [address] [place] [address] Pneumonia due to infectious organism, unspecified laterality, unspecified part of lung; Acute electrocardiogram changes 11/27/2024 Telephone Adult [address] [phone] Davy Rivera PA 11/18/[address] [phone] Davy Rivera PA 11/12/2024 9:00 AM EDT Office Visit Adult [address] [phone] Davy Rivera PA Falls frequently (Primary Dx); Gait disturbance; Osteoporosis, unspecified osteoporosis type, unspecified pathological fracture presence; Morbid obesity with BMI of 40.0-44.9, adult ([facility] V24, [facility] V28); Seizure disorder ([facility] V24, [facility] V28) 11/10/2024 2:30 PM EDT Office Visit Adult [address] [phone] Viviana Mishra, PA Intertrigo (Primary Dx); Morbid obesity with BMI of 40.0-44.9, adult (CMS/HCC V24, CMS/HCC V28) 11/10/2024 Telephone Adult Medicine [address] [phone] Viviana Mishra PA 11/10/2024 Telephone Adult Medicine [address] [phone] Dee Dee Fritz MA 11/06/2024 9:30 AM EDT Office Visit Orthopedic Surgery - [place] [address] [place] [phone] Carlos Brown, DPM Ingrowing nail (Primary Dx) 10/30/2024 10:45 AM EDT Office Visit Adult [address] [phone] Davy Rivera, PA Pneumonia due to infectious organism, unspecified laterality, unspecified part of lung (Primary Dx); Acute electrocardiogram changes; Lower extremity edema 10/30/2024 Telephone Adult Medicine [address] [phone] Davy Rivera, PA 10/29/2024 Telephone Adult [address] [phone] Davy Rivera, PA from Last 3 Months Immunizations Immunization Administration Dates Next Due H1N1 Inj Preservative [...] ERUPTED TOOTH/EXR UPPER GASTROINTESTINAL ENDOSCOPY 03/27/2019 PROCEDURE: NM UPPER GI ENDOSCOPY PERFORMED; COMMENT: Esophagus normal [...] other slipping, tripping, or stumbling Seizure disorder ([facility] V2 4, [facility] V28) 04/07/2005 DX:Seizure disorder ([facility]) Gallstones 09/30/2014 DX:Gallstones; C OMMENT: Noted on CT on 09/30/14 Disorder of bone and cartilage 12/07/2005 D X:Disorder of bone and cartilage; COMMENT: IMO update Disequilibrium 01/30/2008 DX:Disequilibriu m Gait disturbance 01/30/2008 DX:Gait disturb ance Morbid obesity with BMI of 4 0.0-44.9, adult ([facility] V24, [facility] V28) 06/30/2009 DX:Morbid obesity wit h BMI of 40.0-44.9, adult ([facility]) Hyponatremia 10/13/2011 DX:Hyponatremia; COMMENT: Admission 10/09/2011 for [...] for your loved ones. For example, child care attendant school or elderly care for an older adult? [...] Sign Reading Time Taken Comments Blood Pressure 156/89 12/10/2024 8:55 AM EDT Pulse 61 11/12/2024 9:26 AM EDT Temperature 35.7 C (96.3 F) 11/12/2024 9:26 AM EDT Respiratory Rate 17 11/12/2024 9:26 AM EDT Oxygen Saturation 96% 11/12/2024 9:26 AM EDT Inhaled Oxygen Concentration - - Weight 95.3 kg (210 lb) 12/10/2024 8:55 AM EDT Height 152.4 cm (5') 12/10/2024 8:55 AM EDT Body Mass Index 41.01 12/10/2024 8:55 AM EDT Plan of Treatment Upcoming Encounters Date Type Department Care Team (Late st Contact Info) Description 02/06/2025 11:15 AM EDT Office Visit Adult Medicine [address] [phone] Viviana Mishra PA [address] [place] [address] 02/10/2025 9:45 AM EST Office Visit Orthopedic Surgery - [place] [address] [phone] Carlos Brown, DPM [address] [phone] 03/18/2025 11:00 AM EST Office Visit Adult Medicine [address] [phone] Davy Rivera, DEMIAN [address] [place] [phone] Health Maintenance Due Date Last Done Comments Hepatitis A Vaccines (1 of 2 - Risk 2-dose series) 1968 Hepatitis B Vaccines (1 of 3 - Risk 3-dose series) 2009 Zoster Vaccines (3 of 3) 08/30/2021 07/05/2021, 11/07 Osteoporosis Screening (Bone Density Screening) 03/18/2022 05/13/2018 Medicare Annual Wellness Visit 03/13/2024 03/13/2023 RSV Immunization Adult Patients (1 - 1-dose 75+ series) 2024 COVID-19 Vaccine (3 - 2023- season) 2024 02/18/2024, 07/05/2021 Influenza Vaccine (#1) 2024 , 03/13/2023, 01/02/2022, Additional history exists Falls Risk Assessment 07/16/2025 07/16/2024 , 07/16/2024, 03/13/2023 Social Influencers of Health Screening 07/16/2025 07/16/2024 Colorectal Cancer Screening: FIT-DNA (Cologuard) 08/01/2025 08/01/2022, 08/01/2022 DTaP,Tdap,and Td Vaccines (4 - Td or Tdap) 05/04/2027 05/04/2017, 10/15/2006, 04/09/1995 Cholesterol Screening (Lipid Panel) 07/16/2029 07/16/2024, 09/14/2023, 09/14/2023 Pneumococcal Vaccine: 50+ Years Completed 10/12/2017, 07/03/2016 Hepatitis C Screening Completed 01/28/2024 Breast Cancer Screening Discontinued 07/03/19, 07/04/2023, 06/26/2023, Additional history exists Depression Screening Completed 07/16/2024, 03/13/20 HIB Vaccines Aged Out No longer eligi [...] age to complete this topic Meningococcal B Vaccine Aged Out No l onger eligible based on patient's age to complete this topic RSV Immunization Patients Under 20 months Aged Out No longer eligible based on patient's age to complete this topic Varicella Vaccines Aged Out No longer eligible based on patient's age to complete this topic Goals Goal Patient Goal Type Associated Problems [...] 1/10 on VAS during stand pivot transfers. Procedures Procedure Name Priority Date/Time Associated Diagnosis Comments TRANSTHORACIC ECHOCARDIOGRAM (TTE) COMPLETE Routine 12/09/2024 2:15 PM EDT Pneumonia due to infectious organism, unspecified laterality, unspecified part of lung Acute electrocardiogram changes ECG 12-LEAD TRACING ONLY Routine 10/31/2024 2:35 PM EDT Pneumonia due to infectious organism, unspecified laterality, unspecified part of lung LIPID PANEL WITH REFLEX TO DIRECT LDL Routine 07/16/2024 1:20 PM EDT Fatty liver Hyponatremia Osteoporosis, unspecified osteoporosis type, unspecified pathological fracture presence Moderate intellectual disability Morbid obesity with BMI of 40.0-44.9, adult (CMS/HCC V24, CMS/HCC V28) Seizure disorder (CMS/HCC V24, CMS/HCC V28) MG MAMMO DIGITAL SCREENING W JAMES BILAT Routine 07/02/2024 11:21 AM EDT Encounter for screening mammogram for breast cancer HEPATITIS C SCREENING Routine 01/28/2024 DEPRESSION SCREENING Routine 03/13/2023 FALLS RISK ASSESSMENT Routine 03/13/2023 FIT-DNA Routine 08/01/2022 DXA BONE DENSITY STUDY 1+ SITS AXIAL SKEL Routine 05/13/2018 11:35 AM EST Epilepsy, unspecified, not intractable, without status epilepticus (CMS/HCC V24, CMS/HCC V28) Moderate intellectual disabilities Disorder of bone, unspecified Disorder of cartilage, unspecified from Last 3 Months or Most Recently Relevant to Health Maintenance Results * (ABNORMAL) TRANSTHORACIC ECHOCARDIOGRAM (TTE) COMPLETE (12/09/2024 2:15 PM EDT) AV Mean Gradient 2 mmHg CV PACS AV Mean Gradient 2 mmHg CV PACS Ao VTI 24.3 cm CV PACS AV Peak Erlin 1.2 m/s CV PACS AV Peak Gradient 5 mmHg CV PACS AV Area Continuity Equation 2.2 cm2 CV PACS AV Area Peak Velocity 1.8 cm2 CV PACS Aortic Sinus Valsalva 3.8 cm CV PACS Ascending Aorta 4.0 cm CV PACS IVSD 1.2(A) 0.6 - 0.9 cm CV PACS LVIDD 3.6(A) 3.8 - 5.2 cm CV PACS LVIDS 2.8 2.2 - 3.5 cm CV PACS LVOT Diameter 1.8 cm CV PACS LVOT Mean Erlin 0.5 m/s CV PACS LVOT Mean Grad 1 mmHg CV PACS LVOT Mean Grad 1 mmHg CV PACS LVOT Peak VTI 21.4 cm CV PACS LVOT Peak Erlin 0.8 m/s CV PACS LVOT Peak Gradient 3 mmHg CV PACS LVPWD 1.3(A) 0.6 - 0.9 cm CV PACS MV E' Tissue Velocity Lateral 9 cm/s CV PACS MV E' Tissue Velocity Septal 6 cm/s CV PACS LVOT Area 2.5 cm2 CV PACS LVOT Stroke Volume 54 mL CV PACS MV Deceleration [place] 5.7 m/s2 CV PACS E Wave Deceleration Time 166 119 - 242 ms CV PACS MV PHT 49 ms CV PACS MV Peak A Erlin 1.08 m/s CV PACS MV Peak E Erlin 0.95 m/s CV PACS MV Mean Gradient 7 mmHg CV PACS MV Mean Gradient 7 mmHg CV PACS MV VTI 82.6 cm CV PACS Mitral Valve Max Velocity 1.7 m/s CV PACS Mitral Valve Max Velocity 1.7 m/s CV PACS MV Peak Gradient 11 mmHg CV PACS MV Area PHT 4.5 cm2 CV PACS MV Area Continuity Equation 0.7 cm2 CV PACS PV Acceleration Time 162 ms CV PACS PV Acceleration Time 162 ms CV PACS PV Mean Gradient 1 mmHg CV PACS PV VTI 14.3 cm CV PACS PV Peak Velocity 0.8 m/s CV PACS PV Peak Gradient 2 mmHg CV PACS RV S' 7 cm/s CV PACS TR Peak Velocity 2.55 m/s CV PACS TR Peak Gradient 26 mmHg CV PACS E/E' Ratio Septal 16 CV PACS E/E' Ratio Averaged 13 CV PACS LVOT Stroke Index 28 mL/m2 CV PACS Relative Wall Thickness ratio 0.72 CV PACS LVOT:AV VTI Index 0.88 CV PACS FS 22 % CV PACS LV Mass 2D 151 g CV PACS Ascending Aorta Index 2.09 cm/m2 CV PACS MV VTI:LVOT VTI ratio 3.9 CV PACS LVOT flow 127 mL/s CV PACS ABHAY Index (VTI) 1.17 cm2/m2 CV PACS ABHAY Index (Pk Erlin) 0.94 cm2/m2 CV PACS LVIDD Index 1.88 cm/m2 CV PACS LVIDS Index 1.47 cm/m2 CV PACS AV Velocity Ratio 0.67 CV PACS E/A Ratio 0.9 CV PACS E/E' Ratio Lateral 11 CV PACS LV Mass Index 2D 79 g/m2 CV PACS BSA 2.01 m2 CV PACS Right Ventricular Peak Systolic Pressure 29 mmHg CV PACS Est. RA Pressure 3 mmHg CV PACS Anatomical Region Laterality Modality Ultrasound Narrative 12/10/2024 9:15 AM EDT This is a technically extremely difficult and nondiagnostic study. The patient had poor tolerance to the test. Left ventricle cavity size is normal. Wall thickness was not well visualized. Systolic function is low normal with an ejection fraction of 50-55%. Regional LV wall motion cannot be accurately assessed. There is Grade II (moderate) diastolic dysfunction. Left Ventricle Left ventricle cavity size is normal. Wall thickness was not well visualized. Systolic function is low normal with an ejection fraction of 50-55%. Regional LV wall motion cannot be accurately assessed. There is Grade II (moderate) diastolic dysfunction. Right Ventricle Right ventricle was not well visualized. Left Atrium Left atrium was not well visualized. Right Atrium Right atrium was not well visualized. IVC/SVC Inferior vena cava structure is normal. RA pressures is estimated to be 3 mmHg (IVC diameter <21 mm and decreases >50% during inspiration). Mitral Valve The leaflets are mildly thickened. There is mild annular calcification. Unable to assess mitral valve regurgitation due to poor Doppler exam. There is no evidence of mitral valve stenosis. Tricuspid Valve Tricuspid valve structure is normal. There is no significant regurgitation. There is no evidence of tricuspid valve stenosis. Cannot assess RVSP. Aortic Valve The aortic valve was not well visualized. The aortic valve is trileaflet. The leaflets are mildly thickened. There is no regurgitation or stenosis. Pulmonic Valve The pulmonic valve was not well visualized. There is no pulmonic valve regurgitation. Ascending Aorta The aorta was not well visualized. The Sinus of Valsalva is dilated (3.8 cm). The ascending aorta is dilated (4.0 cm). Pericardium Pericardium appears normal. There is no pericardial effusion. Study Details Overall the study quality was technically difficult. Limited study due to patient tolerance. Study was difficult due to: poor endocardial visualization and procedure performed with the patient in a supine position. us Davy ARCINIEGA CV ECHO PROCEDURES Final Result * ECG 12 lead Tracing Only (10/31/2024 2:35 PM EDT) us Davy ARCINIEGA ECG ORDERABLES Final Res ult * Lipid panel with reflex to direct LDL (07/16/2024 1:20 PM EDT) [facility] Cholesterol 174 0 - 200 mg/dL LAB CHEMISTRY METHOD 07/16/2024 5:14 PM EDT [facility] Triglycerides 144 0 - 150 mg/dL LAB CHEMISTRY METHOD 07/16/2024 5:14 PM EDT [facility] HDL 85 >=40 mg/dL LAB CHEMISTRY METHOD 07/16/2024 5:14 PM EDT [facility] LDL Calculated 60 0 - 100 mg/dL LAB CHEMISTRY METHOD 07/16/2024 5:14 PM EDT [facility] VLDL Cholesterol Christ 28.8 mg/dL LAB CHEMISTRY METHOD 07/16/2024 5:14 PM EDT [facility] Non HDL Chol. (LDL+VLDL) 89 <145 mg/dL LAB CHEMISTRY METHOD 07/16/2024 5:14 PM EDT [facility] Chol/HDL Ratio 2.0 0.0 - 4.4 LAB CHEMISTRY METHOD 07/16/2024 5:14 PM EDT [facility] Blood Venous blood specimen / Unknown Venipuncture / Unknown 07/16/2024 1:20 PM EDT 07/16/2024 1:20 PM EDT us Davy ARCINIEGA LAB BLOOD ORDERABLES Xiomara l Result [facility] [address] [place] [address], * MG Mammo Digital Screening w James bilat (07/02/2024 11:21 AM EDT) Anatomical Region Laterality Modality Breast Bilateral Mammography 07/02/2024 1:47 PM EDT Impressions 07/02/2024 1:57 PM EDT Benign. BI-RADS CATEGORY: 2 - BENIGN RECOMMENDATION: Screening bilateral mammogram is recommended in 1 year. Mammo Location: [facility], [address] [place] [address], [id number], . -------- FINAL REPORT -------- Dictated By: Aaliyah Littlejohn Dictated Date: 07/02/2024 13:47 ET Assigned Physician: Aaliyah Littlejohn Reviewed and Electronically Signed By: Aaliyah Littlejohn Signed Date: 07/02/2024 13:57 ET Workstation ID: [id number] Transcribed By: Self Edit Transcribed Date: 07/02/2024 13:47 ET Narrative 07/02/2024 1:57 PM EDT CLINICAL: 73 years old, Female, routine annual exam. COMPARISON: Mammograms dating back to 05/12/2020 with most recent of 06/20/2023. TECHNIQUE: Bilateral MLO and CC views were obtained digitally with 3-D mammogram (digital breast tomosynthesis). Computer-aided detection was utilized in evaluation of this exam (CAD). FINDINGS: There is no evidence of suspicious mass or architectural distortion. No worrisome calcifications are evident. Postoperative changes of the left breast are again noted. There is a biopsy clip in the left breast. There has been no significant change from prior [...] is recommended in 1 year. Mammo Location: [facility], [address] [place] [address], [id number], . -------- FINAL REPORT -------- Dictated By: Aaliyah Littlejohn Dictated Date: 07/02/2024 13:47 ET Assigned Physician: Aaliyah Littlejohn Reviewed and Electronically Signed By: Aaliyah Littlejohn Signed Date: 07/02/2024 13:57 ET Workstation ID: [id number] Transcribed By: Self Edit Transcribed Date: 07/02/2024 13:47 ET Davy ARCINIEGA IMG BI PROCEDURES Final R esult * Hepatitis C Screening (01/28/2024) [facility] Hepatitis C Screening Abstracted [facility] Provider MD HEALTH MAINTENANCE Final Result * Falls Risk Assessment (03/13/2023) [facility] Falls Risk Assessment Abstracted Result [facility] Provider [place] HEALTH MAINTENANCE Final Result * Depression Screening (03/13/2023) [facility] Depression Screening Abstracted Result [facility] Provider MD HEALTH MAINTENANCE Final Result * FIT-DNA (Cologuard) (08/01/2022) [facility] Colorectal Cancer Screening: FIT-DNA (Cologuard) Negative Result [facility] Provider MD HEALTH MAINTENANCE Final Result * DXA BONE DENSITY STUDY 1+ SITS AXIAL SKEL (05/13/2018 11:35 AM EST) Anatomical Region Laterality Modality Bone Densitometr y 10/12/2017 3:22 PM EDT Narrative 05/13/2018 2:02 PM EST BONE DENSITY Lumbar Spine T-score is -2.3 (SD relative to 20-29 y/o adult) Z-score is -0.3 (SD relative to age matched peers) This is consistent with osteopenia by criteria defined by the WHO. Left Hip T-score is -2.9 Z-score is -1.2 This is consistent with osteoporosis by criteria defined by the WHO. Impression: Based on the World Health Organization criteria, Cj Hendrix should be classified as having osteoporosis. [facility] Department of Internal Medicine recommends using National [...] Based on the World Health Organization criteria, Cj Hendrix should beclassified as having osteoporosis. [facility] Department of Internal Medicine recommendsusing National Osteoporosis [...] over-estimation of fracture risk by FRAX. Davy ARCINIEGA IMG DXA PROCEDURES Final Result from Last 3 Months or Most Recently Relevant to Health Maintenance Insurance MEDICARE [place]ICAID [place] Care Teams Mice Raiser Relationship Specialty Start Date End Date Davy Rivera PA [address] [place] [address] PCP - General Internal Medicine 04/29/20
--- OUTSIDE RECORDS SUMMARY | 2025-01-27 21:48 | XMS_ITS | Encounter Summary ---
Author Organization [facility] [address] Care Team Providers Care Garbage Pick Up Worker Name Role Phone Davy Rivera Primary Care Provider [phone] Reason for Visit * Reason Onset Date Comments Med Refill 01/22/2025 Encounter Details Date Type Department Care Team (Late st Contact Info) Description 01/22/2025 Telephone Adult Medicine [address] [phone] Davy Rivera PA [address] [place] [phone] Social History Tobacco Use Types Packs/Day Years [...] care for your loved ones. For example, childcare provider or elderly care for an older adult? [...] on file documented as of this encounter Plan of Treatment Upcoming Encounters Date Type Department Care Team (Late st Contact Info) Description 02/06/2025 11:15 AM EDT Office Visit Adult Medicine [address] [phone] Viviana Mishra PA [address] [place], [place] 02/10/2025 9:45 AM EST Office Visit Orthopedic Surgery - [place] [address] [phone] Carlos Brown, DPM [address] [phone] 03/18/2025 11:00 AM EST Office Visit Adult Medicine [facility] [address] [place] [phone] Davy Rivera PA [address] [place] [phone] documented as of this encounter Goals Goal Patient Goal Type Associated Problems Recent Progress Patient-Stated? Author STG's 5 visits General Yes Yvon Romero, PT Note: Pt/caregivers will be Independent and [...] documented as of this encounter Care Teams Garbage Pick Up Worker Relationship Specialty Start Date End Date Davy Rivera, PA [address] [place] [address] PCP - General Internal Medicine 04/29/20 documented as of this encounter
== END 2025-01-28 00:12 | disposition home or self-care (01) ==
PROVIDERS: Physician Assistant; Emergency Provider Emergency Medicine; PCP Internal Medicine
DX: S89.91XA Unspecified injury of right lower leg, initial encounter (principal); S89.92XA Unspecified injury of left lower leg, initial encounter; M25.562 Pain in left knee; M25.561 Pain in right knee; M54.50 Low back pain, unspecified; M54.2 Cervicalgia; R51.9 Headache, unspecified; X50.9XXA Other and unspecified overexertion or strenuous movements or postures, initial encounter; Y93.9 Activity, unspecified; Y92.9 Unspecified place or not applicable; Y99.8 Other external cause status; Z79.899 Other long term (current) drug therapy
CPT/HCPCS: 36415; 70450; 72100; 72125; 72170; 73564; 80053; 81001; 85025; 99283; 99284

== ENCOUNTER → 2025-01-27 18:23 | Outpatient (BNV) | payer MEDICARE, MEDICAID, SELFPAY | PROVIDERS: PCP Internal Medicine; Visit Provider Radiology Vascular & Interventional Radiology | DX: M50.30 Other cervical disc degeneration, unspecified cervical region (principal); Z04.3 Encounter for examination and observation following other accident; M17.0 Bilateral primary osteoarthritis of knee; M16.0 Bilateral primary osteoarthritis of hip | CPT/HCPCS: 70450; 72100; 72125; 72170; 73564 ==

== ENCOUNTER 2025-03-04 13:40 | Outpatient (AMB) | payer MEDICARE, MEDICAID, SELFPAY ==
--- NOTE | 2025-03-04 14:22 | A.OFFVIS_ITS ---
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 Details of seizures were not clear. She said that she did not have one for years. She used to fall, and shake during the seizure. She has been living in a residential facility. Parents have . She used to see Dr. Adair and then Dr. Garcia. She denied any further seizures or any new problems. She was living in a care home and was brought here by a staff. [facility] Medical History Small jaw Thought disorder Schizophrenia Mood disorder Depression Osteoporosis Age-related macular degeneration GERD (gastroesophageal reflux disease) Seizures Cognitive developmental delay Surgical History History of esophagogastroduodenoscopy (EGD) Hx of lithotripsy Hx of cystoscopy Social History Household Members Other:: resides in care home Patient Tobacco Use Status: Never used Tobacco Advance Directives Date on File: 01/27/25 Review of Systems Narrative No recent seizures or new symptom. Physical Exam Neuro Other: Mental Status: She is alert and awake with normal spontaneity of speech fluency comprehension and flat affect. Cranial Nerves: CN II: Visual long full to confrontation, visual acuity intact. CN III, IV, : Pupils equal, round, reactive to light and accommodation. Extraocular movements are normal. CN V: Facial sensation is normal. CN VII: Facial movements symmetrical. CN VIII: Hearing intact to bedside conversation is normal. CN IX, X: Palate elevates symmetrically. CN XI: Shoulder shrug and head turn symmetrical. CN XII: Tongue midline without atrophy or fasciculations. No obvious focal arm or leg weakness. She is in a wheelchair. Extrapyramidal: Full facial expressions and blinking. No rigidity. Movements are appropriate with no tremor or abnormality. Speech: Normal; no dysarthria or tremor. Assessment & Plan Assessment & Plan (1) Chronic static encephalopathy: Code(s): G93.49 - Other encephalopathy Category: Medical (2) Seizure disorder: Code(s): G40.909 - Epilepsy, unspecified, not intractable, without status epilepticus Category: Medical Plan Impression: a: Chronic static encephalopathy b: Seizure disorder Recommendations: 1. Primidone 250 mg 1 tablet twice a day 2. Carbamazepine 200 mg 1 twice a day 3. Carbamazepine extended release 100 mg 1 twice a day 4. CBC liver enzymes Tegretol level and phenobarbital level 5. Folic acid 1mg one a day Orders: Orders Phenobarbital Today G40.909 - Epilepsy, unspecified, not intractable, without status epilepticus Carbamazepine Tegretol Today G40.909 - Epilepsy, unspecified, not intractable, without status epilepticus Liver Panel Today G40.909 - Epilepsy, unspecified, not intractable, without status epilepticus Medications: New carbamazepine ER (Tegretol XR) 200 mg PO BID 180 tabs 1RF folic acid 1 mg PO DAILY 90 tabs 1RF Refilled primidone (Mysoline) 250 mg PO BID 180 tabs 1RF carbamazepine ER (Tegretol XR) 100 mg PO BID 180 tabs 1RF Coding Level of Care Code Est Pt Level 3 (88682) Diagnoses Chronic static encephalopathy G93.49 Seizure disorder G40.909
--- OUTSIDE RECORDS SUMMARY | 2025-03-04 16:45 | XMS_ITS | Data Portability ---
Author Organization [place] - [facility], Allergy Address [address] [address] Care Team Providers Care Parts Representative Name Role Phone ANTONIO JOHNSON Primary Care Provider Assessment Encounter Date Assessment Date Assessment LastModified by Organization Details LastModified Time 11/22/2023 11/22/2023 Recommendations: Follow up with referring provider. Not available 11/22/2023 10:27:16 11/22/2023 11/22/2023 Impacted [...] Debrox 6.5 % ear drops 024 024 [facility] Ludei Purvis, [address] [place], [address], 4 11:19:53 Patient TargetsNo targets recorded. Patient [...] Infectiv e otitis externa of right ear [id number] 73580 Completed 201611/09/2023 Other infectiv e otitis externa, right ear; Note: Date Diagnose d: 04/14/2016 9:52 AM (H60.391 ) Not Available [facility] 4 03:08:17 Otorrhea of right ear [id number] 83519 Completed 201611/09/2023 Otorrhea , right ear; Note: Date Diagnose d: 04/14/2016 9:52 AM (H92.11) Not Available [facility] 4 03:08:18 Impacted cerumen in left ear 44075516442 60928 Active 2016 Impacted cerumen, left ear; Note: Date Diagnose d: 04/17/2016 9:28 AM (H61.22) Not Available [facility] 4 03:08:18 Benign neoplasm of skin of right ear [id number] 16652 Completed 201611/09/2023 Other benign neoplasm of skin of right ear and external auricula r canal; Note: Date Diagnose d: 7 2:35 PM (D23.21) Not Available [facility] 4 03:08:17 Impacted cerumen of bilatera l ears 50898681766 91242 Active 2023 AMY WHITAKER MD [address] [place] [address], [place], [address] , [facility] - [facility] 4 11:17:19 Sensorin eural hearing loss of bilatera l ears 627622607 Active 2023 AMY WHITAKER MD [address] [place] [address], [place], [address] , [facility] - [facility] 4 11:17:24 Impacted cerumen in right ear [id number] 60241 Active 2023 Savannah patel [place] - [facility] 4 09:57:47 Problem Notes None recorded. Procedures Surgical History Date Name Laterality Status Provider Name and Address Organization Details Recorded Time 11/22/19 24 Tympanometry - 46028 completed DEANNA POSEY, AuD [address], [place], [address], [facility] - [facility] 11/22/2023 10:27:39 11/22/19 24 Air & Bone Audio - 92467 completed DEANNA POSEY, AuD [address], [place], [address], [facility] - [facility] 11/22/2023 10:27:35 11/22/19 24 SRT/SAT - 75572 completed DEANNA POSEY, AuD [address], [place], [address], [facility] - [facility] 11/22/2023 10:27:45 11/22/19 24 Cerumen removal without microscope right completed Savannah Chow [facility] 11/22/2023 10:21:24 10/18/19 24 Cerumen removal with microscope bilateral completed AMY WHITAKER MD [address], [place], [address], [facility] 10/18/2023 11:17:11 Imaging Results None recorded. Procedure Notes None recorded. Medical Equipment None Reported. Allergies Allergen ID Allergen Name Allergen Category Reaction Reaction Severity Criticality Documentation Date Start Date Code Code System Note Provider Name and Address Organization Details Recorded Time 355975 Product containin g penicilli n (product) medicatio n other Not available Not available 08/21/2023 19325 8001 SNOMED React ion: unkno wn, unspe cifie d;; Not Available [facility] 4 01:23:19 Medications Name Sig Start Date [...] tablet,ext ended release 2016 active Medication ID: [id number] Bra nd Name: Ditamraopan XL Send Method: [...] Tegretol 200 mg tablet active Medication ID: [id number] Bra tn Name: Tegretol S end Method: E-Prescrib ed [...] ension 4 drop 2016 active Medication ID: [id number] Dur ation Value: 14 Prescribe d By [...] No t Available Celexa active Medication ID: [id number] Bra nd Name: iliaexharini Sen d Method: [...] Code Diagnosis IMO Codes Diagnosis Note [id number] AMY WHITAKER MD [facility] on [address] [place] [address] 10/18/2023 10:20:33 10/18/2023 11:23:28 Impacted cerumen of bilateral ears [id number] 705718 H61.23 Cerumen removed AU but incomplete ly AD. Use debrox and return for ear cleaning then audio. Sensorineu ral hearing loss of bilateral ears 227869446 H90.3 suspected [id number] SAVANNAH CHOW PA-C [facility] on [address] [place] [phone] 11/22/2023 09:27:38 11/22/2023 10:33:58 Impacted cerumen in right ear 4353827933 386923 H61.21 Sensorineu ral hearing loss of bilateral ears 159453403 H90.3 [id number] Rodney ELLIS [facility] on [address] [place] [phone] 11/22/2023 10:27:06 11/22/2023 10:33:43 Sensorineural hearing loss of bilateral ears 754526453 H90.3 Audiologic al evaluation results:Ri ght ear:Normal [...] Name 11/19/2023 2 [place] Yahaira Bestogh [id number] Yahaira Alcaraz [facility] 11/19/2023 1 [place] B-[place]: [employer] Yahaira Alcaraz Ruma [id number] Yahaira Bestogh Notes Date Note Type Note Provider Name and Address Organization Details Recorded Time 10/18/2023 text/html ROS as noted in the HPI Presents for hearing evaluation. Has cerumen impactions. AMY WHITAKER MD [address], [address], [facility] 10/18/2023 11:18:35 11/22/2023 text/html ROS as noted in the HPI 72 year old female with developmental delay presents with her data management specialist to complete cerumen debridement and an audiogram.No new concerns today. Savannah patel [facility] 11/22/2023 10:21:52 11/22/2023 text/html Audiological Evaluation HPIReported by PatientHearing LossFor hearing loss perceived, patient reportsnone (no loss of audibility).Tinnitus For tinnitus reported, patient reportsnone.Dizzines sFor balance symptoms reported, patient reportsno report of dizziness. Rodney ELLIS 100 [facility],[address], [address], [facility] 11/22/2023 10:28:55 OBGyn Episode No OBEpisode recorded.
--- OUTSIDE RECORDS SUMMARY | 2025-03-04 16:45 | XMS_ITS | Encounter Summary ---
Author Organization [facility] [place] [address] Care Team Providers Care Casket Trimmer Name Role Phone Davy Rivera Primary Care Provider [phone] Encounter Details Date Type Department Care Team (Late st Contact Info) Description 02/11/2025 Results Follow-Up Adult [address] [phone] Davy Rivera PA [address] [place] [phone] Social History Tobacco Use Types Packs/Day Years [...] for your loved ones. For example, child psychology teacher or elderly care for an older adult? [...] Care Team (Late st Contact Info) Description 03/10/2025 11:30 AM EST Evaluation Outpatient Rehabilitation [address] [address] Los Hernandez, PT [address] [place] [address] 03/18/2025 11:00 AM EST Office Visit Adult Medicine [facility] [address] [place] [address] Davy Rivera PA [address] [place] [phone] 04/14/2025 9:15 AM EST Office Visit Orthopedic Surgery - [place] [address] [phone] Carlos Brown, DPM [address] [phone] documented as of this encounter Goals Goal [...] documented as of this encounter Care Teams Casket Trimmer Relationship Specialty Start Date End Date Davy Rivera PA [address] [place] [address] PCP - General Internal Medicine 04/29/20 documented as of this encounter
--- OUTSIDE RECORDS SUMMARY | 2025-03-04 16:45 | XMS_ITS | Clinical Summary ---
Author Organization [address] [place] [address] [place] [phone] Phone Care Team Providers Care Hand Trucker Name Role Phone Davy Rivera Primary Care Provider [phone] Allergies Active Allergy Reactions Criticality Noted Date [...] DAILY LABS DUE KWAME 08/21/19 24 Active citalopram (CeleXA) 10 mg tablet [...] times daily (with meals). 02/26/20 21 Active hydrocortisone 2.5 % cream Apply topically [...] swelling). 30 each 11 03/14/20 24 Active primidone (MYSOLINE) 250 mg tablet TAKE (1) TABLET BY MOUTH TWICE A DAY. 56 tablet 5 03/31/20 24 Active silver sulfADIAZINE (Silvadene) 1 % cream Apply topically 1 (one) time each day. 50 g 06/11/19 25 026 Active acetaminophen (TYLENOL) 500 mg tablet Take 2 tablets (1,000 mg total) by mouth every 8 (eight) hours if needed for moderate pain. 30 tablet 10/24/19 25 Active lidocaine 0.5% (SOLARCAINE) 0.5 % gel external gel Apply 1 application 4 times a day by topical route as needed. 09/19/19 20 Active dextromethorpha n-guaiFENesin (ROBITUSSIN-DM) 10-100 mg/5 mL syrup Take 10 mL by mouth every 6 hours as needed for Other (cough). 200 mL 1 10/24/19 25 Active doxycycline (ADOXA) 100 mg tablet Take 1 tablet (100 mg total) by mouth 1 (one) time each day. 10/29/19 25 Active cefpodoxime (VANTIN) 200 mg tablet Take 1 tablet (200 mg total) by mouth 2 (two) times a day. 10/29/19 25 Active fluticasone propionate (FLONASE) 50 mcg/actuation nasal spray INSTILL 2 SPRAYS INTO EACH NOSTRIL ONCE DAILY. 16 g 5 11/01/19 25 Active ketoconazole (NIZORAL) 2 % cream Apply to the rash in groin two times a day for 2 week. Repeat course if the rash reoccurs. 60 g 1 11/11/19 25 Active Reguloid, psyllium husk, 0.4 gram capsule TAKE 1 CAPSULE BY MOUTH DAILY IN PM 28 capsule 5 02/03/20 25 Active menthol (Gold Rodriguez Medicated Body) 0.8 % powder Apply 1 Units topically 1 (one) time each day. Apply a small amount topically once daily at 8 PM 283 g 1 02/07/20 Active multivitamin tablet TAKE (1) TABLET DAILY BY MOUTH IN THE MORNING. 28 tablet 5 02/28/20 25 Active oxyBUTYnin (DITROPAN) 5 mg tablet TAKE 1 TABLET BY MOUTH TWICE DAILY 56 tablet 5 02/28/20 Active docusate sodium (COLACE) 100 mg capsule TAKE (1) CAPSULE BY MOUTH DAILY 28 capsule 5 02/28/20 25 Active cetirizine (ZyrTEC) 10 mg tablet TAKE 1 TABLET BY MOUTH ONCE DAILY IN THE MORNING FOR COUGH & SEASONAL ALLERGIES. 28 tablet 5 02/28/20 25 Active meloxicam (MOBIC) 15 mg tablet TAKE 1 TABLET BY MOUTH DAILY EVERY EVENING 30 tablet 5 02/28/20 Active multivitamin tablet TAKE (1) TABLET DAILY BY MOUTH IN THE MORNING. 28 tablet 3 11/06/19 25 025 Discontinued oxyBUTYnin (DITROPAN) 5 mg tablet TAKE 1 TABLET BY MOUTH TWICE DAILY 56 tablet 3 11/06/19 25 025 Discontinued docusate sodium (COLACE) 100 mg capsule TAKE (1) CAPSULE BY MOUTH DAILY 28 capsule 3 11/06/19 25 025 Discontinued cetirizine (ZyrTEC) 10 mg tablet TAKE 1 TABLET BY MOUTH ONCE DAILY IN THE MORNING FOR COUGH & SEASONAL ALLERGIES. 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 Seizure disorder (CMS/HCC V24, CMS/HCC V28) 03/11 Encounters Date Type Department Care Team Description 02/11/2025 Results Follow-Up Adult [address] [phone] Davy Rivera PA 02/11/[address] [phone] Davy Rivera PA 02/10/[address] [phone] Davy Rivera PA 02/09/2025 3:45 PM EST Lab Draw [address] Elevated LFTs; Low platelet count ([facility]/HCC V24) 02/06/2025 11:15 AM EDT Office Visit Adult [address] [phone] Viviana Mishra PA Falls frequently (Primary Dx); Gait disturbance; Low platelet count (CMS/HCC V24); Elevated LFTs; Need for prophylactic vaccination and inoculation against influenza 02/06/2025 Telephone Adult [address] [phone] Davy Rivera PA 01/27/2025 Telephone Adult Medicine [facility] [address] [place] [phone] Davy Rivera PA 01/22/2025 Telephone Adult Medicine [address] [phone] Davy Rivera PA 12/09/2024 1:30 PM EDT Ancillary Procedure [facility] [address] [place] [address] Pneumonia due to infectious organism, unspecified laterality, unspecified part of lung; Acute electrocardiogram changes from Last 3 Months Immunizations Immunization Administration Dates Next Due H1N1 Inj Preservative Free 04/08/2009 Influenza Quadravalent, MDCK , 0.5ml, preservative free (Flucelvax) 6mo and older 01/25/2019 Influenza trivalent, 0.5mL ( Fluad) 65yo and older 02/06/2025,03/13/2023,01/02/2022,06/21,12/27/2017,12/11/2016 Influenza trivalent, 0.5mL, preservative free (Fluarix; FluLaval; [...] Surgery Date Site/Laterality Comments OTHER SURGICAL HISTORY 2016 PROCEDURE: EXTRACTION ERUPTED TOOTH/EXR UPPER GASTROINTESTINAL ENDOSCOPY 03/27/2019 PROCEDURE: SC UPPER GI ENDOSCOPY PERFORMED; COMMENT: Esophagus normal [...] other slipping, tripping, or stumbling Seizure disorder (CMS/HCC V2 4, CMS/HCC V28) 04/07/2005 DX:Seizure disorder (HCC) Gallstones 09/30/2014 DX:Gallstones; C OMMENT: Noted on CT on 09/30/14 Disorder of bone and cartilage 12/07/2005 D X:Disorder of bone and cartilage; COMMENT: IMO update Disequilibrium 01/30/2008 DX:Disequilibriu m Gait disturbance 01/30/2008 DX:Gait disturb ance Morbid obesity with BMI of 4 0.0-44.9, adult (CMS/HCC V24, CMS/HCC V28) 06/30/2009 DX:Morbid obesity wit h BMI of 40.0-44.9, adult ([facility]) Hyponatremia 10/13/2011 DX:Hyponatremia; COMMENT: Admission 10/09/2011 for [...] care for your loved ones. For example, children's zoo caretaker or elderly care for an older adult? [...] Sign Reading Time Taken Comments Blood Pressure 139/71 02/06/2025 11:25 AM EDT Pulse 58 02/06/2025 11:25 AM EDT Temperature 35.7 C (96.2 F) 02/06/2025 11:38 AM EDT Respiratory Rate 14 02/06/2025 11:25 AM EDT Oxygen Saturation 96% 02/06/2025 11:38 AM EDT Inhaled Oxygen Concentration - - Weight 94.3 kg (208 lb) 02/06/2025 11:25 AM EDT Height 152.4 cm (5') 02/06/2025 11:25 AM EDT Body Mass Index 40.62 02/06/2025 11:25 AM EDT Plan of Treatment Upcoming Encounters Date Type Department Care Team (Late st Contact Info) Description 03/10/2025 11:30 AM EST Evaluation Outpatient Rehabilitation [address] [phone] Los Hernandez, PT [address] [place] [address] 03/18/2025 11:00 AM EST Office Visit Adult Medicine [address] [phone] Davy Rivera, DEMIAN [address] [place] [phone] 04/14/2025 9:15 AM EST Office Visit Orthopedic Surgery [place] [address] [phone] Carlos Brown, DPM [address] [phone] Health Maintenance Due Date Last Done Comments Zoster Vaccines (3 of 3) 08/30/2021 07/05/2021, 11/07 Osteoporosis Screening (Bone Density Screening) 03/18/2022 05/13/2018 Medicare Annual Wellness Visit 03/13/2024 03/13/2023 RSV Immunization Adult Patients (1 - 1-dose 75+ series) 2024 COVID-19 Vaccine (3 - 2024- season) 2024 02/18/2024, 07/05/2021 Falls Risk Assessment 07/16/2025 07/16/2024 , 07/16/2024, [...] history exists Depression Screening Completed 07/16/2024, 03/13/20 Influenza Vaccine Completed 02/06/2025, , 03/13/2023, Additional history exists HIB Vaccines Aged Out No longer eligi ble based on patient's age to complete this topic HPV Vaccines Aged Out No longer eligi ble based on patient's age to complete this topic Hepatitis A Vaccines Aged Out No long er eligible based on patient's age to complete this topic Hepatitis B Vaccines Aged Out No long [...] Procedure Name Priority Date/Time Associated Diagnosis Comments CBC WITH AUTO DIFFERENTIAL Routine 02/09/2025 3:51 PM EST Low platelet count (CMS/HCC V24) CBC AND DIFFERENTIAL Routine 02/09/2025 3:51 PM EST Low platelet count (CMS/HCC V24) HEPATIC FUNCTION PANEL Routine 02/09/2025 3:51 PM EST Elevated LFTs EXTERNAL CT REPORT 01/27/[address] REPORT 01/27/2025 EXTERNAL XRAY REPORT 01/27/2025 EXTERNAL XRAY REPORT 01/27/2025 EXTERNAL XRAY REPORT 01/27/2025 EXTERNAL XRAY REPORT 01/27/2025 TRANSTHORACIC ECHOCARDIOGRAM (TTE) COMPLETE Routine 12/09/2024 2:15 PM EDT Pneumonia due to infectious organism, unspecified laterality, unspecified part of lung Acute electrocardiogram changes LIPID PANEL WITH REFLEX TO DIRECT LDL [...] Relevant to Health Maintenance Results * (ABNORMAL) CBC auto differential (02/09/2025 3:51 PM EST) WBC 3.5(L) 4.8 - 10.8 K/mcL LAB HEMETOLOGY METHOD 02/09/2025 7:21 PM [facility] RBC 4.00 3.80 - 4.80 M/mcL LAB HEMETOLOGY METHOD 02/09/2025 7:21 PM [facility] Hemoglobin 11.9 11.5 - 16.0 g/dL LAB HEMETOLOGY METHOD 02/09/2025 7:21 PM [facility] Hematocrit 37.1 35.0 - 47.0 % LAB HEMETOLOGY METHOD 02/09/2025 7:21 PM [facility] MCV 93.9 79.0 - 98.0 FL LAB HEMETOLOGY METHOD 02/09/2025 7:21 PM [facility] MCH 30.1 27.0 - 32.0 pcg LAB HEMETOLOGY METHOD 02/09/2025 7:21 PM [facility] MCHC 32.1 32.0 - 37.0 g/dL LAB HEMETOLOGY METHOD 02/09/2025 7:21 PM [facility] RDW 13.6 11.0 - 15.0 % LAB HEMETOLOGY METHOD 02/09/2025 7:21 PM [facility] Platelets 02/09/2025 7:21 PM [facility] Comment:Not measured. Unable to quantitate due to platelet clumping MPV 11.9(H) 7.0 - 11.0 FL LAB HEMETOLOGY METHOD 02/09/2025 7:21 PM [facility] NRBC 0.0 <1.0 % LAB HEMETOLOGY METHOD 02/09/2025 7:21 PM [facility] NRBC Absolute 0.00 <0.10 K/mcL LAB HEMETOLOGY METHOD 02/09/2025 7:21 PM [facility] Neutrophils Relative 40.6 % LAB HEMETOLOGY METHOD 02/09/2025 7:21 PM [facility] Lymphocytes Relative 42.6 % LAB HEMETOLOGY METHOD 02/09/2025 7:21 PM [facility] Monocytes Relative 13.1 % LAB HEMETOLOGY METHOD 02/09/2025 7:21 PM [facility] Eosinophils Relative 3.4 % LAB HEMETOLOGY METHOD 02/09/2025 7:21 PM [facility] Basophils Relative 0.3 % LAB HEMETOLOGY METHOD 02/09/2025 7:21 PM [facility] Immature Granulocytes Relative 0.0 % LAB HEMETOLOGY METHOD 02/09/2025 7:21 PM [facility] Neutrophils Absolute 1.42(L) 1.50 - 7.00 K/mcL LAB HEMETOLOGY METHOD 02/09/2025 7:21 PM [facility] Lymphocytes Absolute 1.49 1.00 - 5.00 K/mcL LAB HEMETOLOGY METHOD 02/09/2025 7:21 PM EST [facility] Monocytes Absolute 0.46 0.20 - 1.00 K/[facility] LAB HEMETOLOGY METHOD 02/09/2025 7:21 PM [facility] Eosinophils Absolute 0.12 0.00 - 0.50 K/[facility] LAB HEMETOLOGY METHOD 02/09/2025 7:21 PM EST [facility] Basophils Absolute 0.01 0.00 - 0.20 K/[facility] LAB HEMETOLOGY METHOD 02/09/2025 7:21 PM [facility] Immature Granulocytes Absolute 0.00 0.00 - 0.03 K/[facility] LAB HEMETOLOGY METHOD 02/09/2025 7:21 PM [facility] Blood Venous blood specimen / Unknown Venipuncture / Unknown 02/09/2025 3:51 PM EST 02/09/2025 3:51 PM EST us Viviana Tad PA LAB BLOOD ORDERABLES Final Resul t [facility] [address] [place] [address], * Hepatic function panel (02/09/2025 3:51 PM EST) Total Protein 6.4 6.0 - 8.0 g/dL LAB CHEMISTRY METHOD 02/09/2025 6:31 PM [facility] Albumin 3.5 3.2 - 5.0 g/dL LAB CHEMISTRY METHOD 02/09/2025 6:31 PM [facility] Total Bilirubin 0.3 0.0 - 1.4 mg/dL LAB CHEMISTRY METHOD 02/09/2025 6:31 PM [facility] Bilirubin, Direct <0.1 0.0 - 0.3 mg/dL LAB CHEMISTRY METHOD 02/09/2025 6:31 PM [facility] Bilirubin, Indirect LAB CHEMISTRY METHOD 02/09/2025 6:31 PM EST [facility] Comment:Unable to calculate Indirect Bilirubin. ALT (SGPT) 46 10 - 60 unit/L LAB CHEMISTRY METHOD 02/09/2025 6:31 PM EST [facility] AST (SGOT) 29 10 - 42 unit/L LAB CHEMISTRY METHOD 02/09/2025 6:31 PM [facility] Alkaline Phosphatase 111 42 - 121 unit/L LAB CHEMISTRY METHOD 02/09/2025 6:31 PM [facility] Blood Venous blood specimen / Unknown Venipuncture / Unknown 02/09/2025 3:51 PM EST 02/09/2025 3:51 PM EST us Viviana Mishra PA LAB BLOOD ORDERABLES Final Resul t [facility] [address] [place] [address], [place] [phone] * External Xray Report (01/27/2025) Only the most recent of4 resultswithin the time period is included. Anatomical Region Laterality Modality Radiographic Yoli ging Provider [facility] XR PROCEDURES Final Result * External CT Report (01/27/2025) Only the most recent of2 resultswithin the time period is included. Anatomical Region Laterality Modality Computed Tomogra phy Provider [facility] CT PROCEDURES Final Result * (ABNORMAL) TRANSTHORACIC ECHOCARDIOGRAM (TTE) COMPLETE (12/09/2024 [...] Volume 54 mL CV PACS MV Deceleration [place] 5.7 m/s2 CV PACS E Wave Deceleration [...] with the patient in a supine position. Davy ARCINIEGA CV ECHO PROCEDURES Final Result * Lipid panel with reflex to direct LDL (07/16/2024 1:20 PM EDT) Cholesterol 174 0 - 200 mg/dL LAB CHEMISTRY METHOD 07/16/2024 5:14 PM EDT [facility] Triglycerides 144 0 - 150 mg/dL LAB CHEMISTRY METHOD 07/16/2024 5:14 PM EDT [facility] HDL 85 >=40 mg/dL LAB CHEMISTRY METHOD 07/16/2024 5:14 PM EDT [facility] LDL Calculated 60 0 - 100 mg/dL LAB CHEMISTRY METHOD 07/16/2024 5:14 PM EDT [facility] VLDL Cholesterol Christ 28.8 mg/dL LAB CHEMISTRY METHOD 07/16/2024 5:14 PM EDT [facility] Non HDL Chol. (LDL+VLDL) 89 <145 mg/dL LAB CHEMISTRY METHOD 07/16/2024 5:14 PM EDT [facility] Chol/HDL Ratio 2.0 0.0 - 4.4 LAB CHEMISTRY METHOD 07/16/2024 5:14 PM EDT [facility] Blood Venous blood specimen / Unknown Venipuncture / Unknown 07/16/2024 1:20 PM EDT 07/16/2024 1:20 PM EDT Davy ARCINIEGA LAB BLOOD ORDERABLES Xiomara l Result [facility] [address] [place] [address], * MG Mammo Digital Screening w James bilat (07/02/2024 11:21 AM EDT) Anatomical Region Laterality Modality Breast Bilateral Mammography 07/02/2024 1:47 PM EDT Impressions 07/02/2024 1:57 PM EDT Benign. BI-RADS CATEGORY: 2 - BENIGN RECOMMENDATION: Screening bilateral mammogram is recommended in 1 year. Mammo Location: [facility], [address] [place] [address], [id number], . -------- FINAL REPORT -------- Dictated By: Aaliyah Littlejohn Dictated Date: 07/02/2024 13:47 ET Assigned Physician: Aaliyah Littlejohn Reviewed and Electronically Signed By: Aaliyah Littlejohn Signed Date: 07/02/2024 13:57 ET Workstation ID: [id number] Transcribed By: Self Edit Transcribed Date: 07/02/2024 [...] is recommended in 1 year. Mammo Location: [facility], [address] [place] [address], [phone], . -------- FINAL REPORT -------- Dictated By: Aaliyah Littlejohn Dictated Date: 07/02/2024 13:47 ET Assigned Physician: Aaliyah Littlejohn Reviewed and Electronically Signed By: Aaliyah Littlejohn Signed Date: 07/02/2024 13:57 ET Workstation ID: [id number] Transcribed By: Self Edit Transcribed Date: 07/02/2024 13:47 ET Davy ARCINIEGA IMG BI PROCEDURES Final R esult * Hepatitis C Screening (01/28/2024) [facility] Hepatitis C Screening Abstracted Result [facility] Provider HEALTH MAINTENANCE Final Result * Falls Risk Assessment (03/13/2023) [facility] Falls Risk Assessment Abstracted Result [facility] HEALTH MAINTENANCE Final Result * Depression Screening (03/13/2023) [facility] Depression Screening Abstracted Result [facility] Provider HEALTH MAINTENANCE Final Result * FIT-DNA (Cologuard) (08/01/2022) [facility] Colorectal Cancer Screening: FIT-DNA (Cologuard) Negative Result [facility] Provider HEALTH MAINTENANCE Final Result * DXA BONE [...] on the World Health Organization criteria, Cj Kaur should be classified as having osteoporosis. [facility] Department of Internal Medicine recommends [...] on the World Health Organization criteria, Cj Kaur should beclassified as having osteoporosis. [facility] Department of Internal Medicine recommendsusing [...] of fracture risk by FRAX. Davy ARCINIEGA [facility] DXA PROCEDURES Final Result from Last 3 Months or Most Recently Relevant to Health Maintenance Insurance MEDICARE MEDICAID - [place] Care Teams Hand Trucker Relationship Specialty Start Date End Date Davy Rivera PA [address] [place] [address] PCP - General Internal Medicine 04/29/20
--- OUTSIDE RECORDS SUMMARY | 2025-03-04 16:45 | XMS_ITS | Encounter Summary ---
Author Organization [facility] [place] [address] Care Team Providers Care Timing Inspector Name Role Phone Davy Rivera Primary Care Provider [phone] Reason for Visit * Reason Onset Date Comments Medication Problem 02/06/2025 Encounter Details Date Type Department Care Team (Late st Contact Info) Description 02/06/2025 Telephone Adult Medicine [address] [phone] Davy Rivera PA [address] [place] [phone] Social History Tobacco Use Types [...] for your loved ones. For example, children's tutor or elderly care for an older adult? [...] as of this encounter Progress Notes * DEMIAN Rebolledo - 02/09/2025 11:05 AM EST I believe we fixed the prescription on the documentation that they needed. Please call to confirm. * Maria Del Carmen Lott - 02/06/2025 2:28 PM EDT The patient staff member of the patient's program Brayden has came in due to menthol (Gold Rodriguez Medicated Body) 0.8 % powder. The patient was informed that the script would need to have the specific space to apply, under abdomin (or stomach). Please Advise. documented in this encounter Plan of Treatment Upcoming Encounters Date Type Department Care Team (Late st Contact Info) Description 03/10/2025 11:30 AM EST Evaluation Outpatient Rehabilitation [address] [phone] Los Hernandez, PT [address] [place] [address] 03/18/2025 11:00 AM EST Office Visit Adult Medicine [address] [phone] Davy Rivera, PA [address] [place] [phone] 04/14/2025 9:15 AM EST Office Visit Orthopedic Surgery [place] [address] [phone] Carlos Brown, DPM [address] [phone] documented as of this encounter Goals Goal Patient Goal Type Associated Problems Recent Progress Patient-Stated? Author STG's 5 visits General Yes Yvon Romero, PT Note: Pt/caregivers will be Independent and compliant with initial HEP. Pt will report R thigh pain of no more than 3/10 on VAS during stand pivot transfers. (Met) here> General Yes Yvon Romero, PT LTG's 10 visits General Yes Yvon Romero, PT Note: [...] documented as of this encounter Care Teams Timing Inspector Relationship Specialty Start Date End Date Davy Rivera PA [address] [place] [address] PCP - General Internal Medicine 04/29/20 documented as of this encounter
--- OUTSIDE RECORDS SUMMARY | 2025-03-04 16:45 | XMS_ITS | Clinical Summary ---
Author Organization [facility] Address [address] [place] [id number] Care Team Providers Care Patient Care Coordinator Name Role Phone Davy Rivera PA-C Primary [...] age to complete this topic Care Teams Patient Care Coordinator Relationship Specialty Start Date End Date Davy Rivera, PAMarkC PCP - General Medical Services 11/11/20
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
== END 2025-03-04 14:36 | disposition home or self-care (01) ==
LOC: HO.HSM 13:40
PROVIDERS: PCP Internal Medicine; Visit Provider Psychiatry & Neurology Neurology
DX: G93.49 Other encephalopathy (principal); G40.909 Epilepsy, unspecified, not intractable, without status epilepticus
CPT/HCPCS: 99213

== ENCOUNTER → 2025-03-04 13:40 | Outpatient (BNVA) | payer MEDICARE, MEDICAID, SELFPAY | PROVIDERS: PCP Internal Medicine; Visit Provider Psychiatry & Neurology Neurology | DX: G93.49 Other encephalopathy (principal); G40.909 Epilepsy, unspecified, not intractable, without status epilepticus | CPT/HCPCS: 99212 ==